=== PATIENT | male | born 1955 | race African-American/Black ===

== ENCOUNTER → 2016-09-03 | Outpatient (CLI) | payer OTHER, MEDICAID ==
[2016-06-03 11:06] VITALS: BP 111/73
[~2016-09-03] MED LIST: ACET-704 PO; ALBU6.7H IH; ASPI81TA2 PO; BUDE10.2 IH; BUPR300T4 PO; CARV25TA2 PO; COLE625T2 PO; DIPH25CA58 PO; DOCU-27 PO; ESOM40CA PO; EZET10TA3 PO; GABA600T PO; GLIP5TAB10 PO; GUAI1CAP PO; HYDR25TA9 PO; HYDROCODONE/APAP; LOSA100T6 PO; MELO-150 PO; METF500T9 PO; NIAC1TBM5 PO; NIAC500C6 PO; NITR0.4T6 SL; OMEG300C PO; PRED5TAB PO; PRED5TAB19 PO; RISP0.5T18 PO; ROFL500T PO; SPIR25TA PO; SUCR1ORA PO; [UNRECOGNIZED DRUG - OTHER]
--- NOTE | 2016-09-03 11:27 | RAD ---
Video dysphasia study, 09/03/2016: History: Swallowing difficulty The swallowing mechanism was examined fluoroscopically in the lateral projection while the patient ingested a variety of food materials mixed with barium. 2.6 minutes of fluoroscopy time was utilized. One fluoroscopic video loop was recorded by a member of the speech Department. The patient demonstrated good oral control of the barium materials. When ingesting the thin liquids there was minimal coating of the posterior aspect of the epiglottis. No significant laryngeal penetration or aspiration was observed. The majority of the barium bolus passed normally through the cervical esophagus. There are mild posterior impressions upon the cervical esophagus due to cervical spurs. He utilized a straw without difficulty. When ingesting the thicker materials and barium coated solids the patient demonstrated intermittent piecemeal swallowing. There was no significant laryngeal penetration or aspiration. There is very little vallecular or piriform sinus residue. IMPRESSION: No evidence of aspiration. Esophagram, 09/03/2016: The study was performed utilizing thin liquid barium. 2.3 minutes of fluoroscopy time was utilized. 7 static and dynamic fluoroscopic sequences were recorded. The swallowing mechanism is intact. The esophageal peristalsis is normal. There is no obstruction to flow of the barium through the cervical or thoracic esophagus. There are mild posterior impressions upon the lower cervical esophagus due to cervical spurs. A small sliding-type hiatal hernia was noted with a nonstenotic Schatzki's ring. No gastroesophageal reflux was demonstrated. IMPRESSION: 1. Small sliding-type hiatal hernia with a nonstenotic Schatzki's ring. 2. The esophagram is otherwise unremarkable.
== END | disposition home or self-care (01) ==
LOC: DXRAD 09:42
PROVIDERS: ATTEND Physician Assistant Medical
DX: K22.2 Esophageal obstruction (principal); K44.9 Diaphragmatic hernia without obstruction or gangrene; R10.13 Epigastric pain; R13.10 Dysphagia, unspecified
CPT/HCPCS: 74220; 74230; 92611

== ENCOUNTER 2016-11-11 20:50 | Emergency (ER) | payer OTHER, MEDICAID ==
[~2016-11-11] VITALS: Ht 180.3 cm; Wt 106.2 kg
[2016-11-11 20:50] VITALS: BP 148/85
[~2016-11-11 20:50] MED LIST changes: +ASPI-630 PO; -ASPI81TA2 PO; +COLE625T12 PO; -COLE625T2 PO; +DOCU-109 PO; -DOCU-27 PO; +EZET10TA18 PO; -EZET10TA3 PO; -MELO-150 PO; +MELO15TA23 PO; +NITR0.4T22 SL; -NITR0.4T6 SL; -RISP0.5T18 PO; +RISP0.5T24 PO; -ROFL500T PO; +ROFL500T7 PO; -SUCR1ORA PO; +SUCR1ORA11 PO
[2016-11-11] MEDS ORDERED: LIDOCAINE 2%/EPI 1:100,000 20 ML VIAL. ONE ×2 (21:08→21:10)
[2016-11-11] MEDS ORDERED: LIDOCAINE 2%/EPI 1:100,000 20 ML VIAL. IJ ONE (21:15)
[2016-11-11] MEDS ORDERED: SULF1TAB24 PO (21:26)
[2016-11-11] MEDS ORDERED: HYDR-2758 PO (21:26)
--- NOTE | 2016-11-11 21:27 | PHYS DOC ---
Past History Past Medical History: COPD, Diabetes, High Cholesterol, Heart Disease, Hypertension, Schizophrenia, Other Past Surgical History: No Surgical History Additional Past Surgical Histo: had extensive local I&D of abscesses underneath his arms Alcohol Use: None Drug Use: None Adult General Chief Complaint Chief Complaint: local soft tissue swelling HPI HPI Patient is a pleasant 61-year-old male with multiple medical problems who presents with soft tissue swelling underneath the left axilla. Spontaneous eruption of small ever growing lesion noted 2 days ago underneath his left armpit. It is very reminiscent of his prior hidradenitis and prior abscesses I& D before. He denies any fevers, chills, pain with arm movement. He has pain only with direct pressure over the lesion itself. He denies any localized trauma , denies any chest pain, shortness of breath or other systemic symptoms. Denies any rash joint pain or swelling. Review of Systems Review of Systems Constitutional: Denies fever or chills [] Eyes: Denies change in visual acuity, redness, or eye pain [] HENT: Denies nasal congestion or sore throat [] Respiratory: Denies cough or shortness of breath [] Cardiovascular: No additional information not addressed in HPI [] GI: Denies abdominal pain, nausea, vomiting, bloody stools or diarrhea [] : Denies dysuria or hematuria [] Musculoskeletal: Denies back pain or joint pain [] Integument: Denies rash or skin lesions [] Neurologic: Denies headache, focal weakness or sensory changes [] Endocrine: Denies polyuria or polydipsia [] Allergies Allergies Allergies Coded Allergies Type Severity Reaction Last Updated Verified amoxicillin Allergy Severe Rash 06/01/16 Yes ampicillin Allergy Severe Rash 06/01/16 Yes Penicillins Allergy Intermediate Rash 06/01/16 Yes clindamycin Allergy Intermediate 06/01/16 Yes Physical Exam Physical Exam Constitutional: Well developed, well nourished, no acute distress, non-toxic appearance. [] Cardiovascular:Heart rate regular rhythm, no murmur [] Lungs & Thorax: Bilateral breath sounds clear to auscultation [] Skin: Warm, dry, he has a 2 cm x 3 cm area of erythema induration and soft tissue swelling in the left axilla no vesicles is no rash overlying the lesion itself. No lymphadenitis capillary refill is brisk +2 peripheral pulses are intact. There is no pulsatile mass here in the axilla Extremities: No tenderness, no cyanosis, no clubbing, ROM intact, no edema. [] Neurologic: Alert and oriented X 3, normal motor function, normal sensory function, no focal deficits noted. [] Psychologic: Affect normal, judgement normal, mood normal. [] EKG EKG [] Radiology/Procedures Radiology/Procedures [] Course & Med Decision Making Course & Med Decision Making Pertinent Labs and Imaging studies reviewed. (See chart for details) a brief bedside ultrasound using a P 21 was completed them sending small area of fluid collected about once every underneath this tissue. Corresponding with a soft tissue swelling noted at the surface of the skin. Abscess measured 1 x 1 cm in length and width. After I&D wound was packed with iodoform gauze patient was placed on appropriate pain medication and antibiotics and wound care follow-up in the next 24-48 hours. Precautions given asked to follow up his primary care doctor for any questions or concerns referral to general surgery for continued management of his hidradenitis Disposition discharge home PCP follow-up Gen. surgery referral. [] Dragon Disclaimer Dragon Disclaimer This chart was dictated in whole or in part using Voice Recognition software in a busy, high-work load, and often noisy Emergency Department environment. It may contain unintended and wholly unrecognized errors or omissions. Departure Departure: Impression: Primary Impression: Abscess Disposition: 01 HOME, SELF-CARE Condition: IMPROVED Referrals: TERRY CULLEN (PCP) Patient Instructions: Abscess, Abscess, Care After, Abscess, [id number] Additional Instructions: These follow-up with your primary care doctor in 24-48 hours for wound care check and removal of packing was necessary. Please return here for any increasing pain, localized swelling fever greater 102.2 despite treatment or if you have any questions or concerns. Scripts Hydrocodone Bit/Acetaminophen (HYDROCODONE-APAP 5-325 ) 1 Each Tablet 1 TAB PO PRN Q6HRS Y for PAIN for 10 Days, TAB 0 Refills Prov: CONOR CONTRERAS MD 11/11/16 Sulfamethoxazole/Trimethoprim (BACTRIM DS TABLET) 1 Each Tablet 1 TAB PO BID, #20 TAB Prov: CONOR CONTRERAS MD 11/11/16 Incision and Drainage Indication: [INDICATION:] Fluctuant abscess procedure was given verbal consent. To complete Procedure: The patient was positioned appropriately and the skin over the incision site was [cleaned with Betadine]. Local anesthesia was [lidocaine with 2% epi 4 mL:]. An incision was then made over the left axillary abscess and [5- 6 mL of urine and drainage:] material was expressed. Loculations were [broken up with hemostats:]. The drainage cavity was then [packed with quarter-inch from gauze approximate 6 cm.:]. The patients tetanus status ready updated..:]. The patient tolerated the procedure without issue was given instructions for follow-up and wound management Complications: No complications COONR CONTRERAS MD Nov 11, 2016 21:27
== END 2016-11-11 21:35 | disposition home or self-care (01) ==
LOC: ER 20:50
DX: L02.412 Cutaneous abscess of left axilla (principal); E11.9 Type 2 diabetes mellitus without complications; E78.00 Pure hypercholesterolemia, unspecified; F20.9 Schizophrenia, unspecified; J44.9 Chronic obstructive pulmonary disease, unspecified; I11.9 Hypertensive heart disease without heart failure; Z88.0 Allergy status to penicillin; Z88.1 Allergy status to other antibiotic agents
CPT/HCPCS: 99284-25

== ENCOUNTER → 2016-12-30 | Outpatient (CLI) | payer OTHER, MEDICAID ==
[~2016-12-30] MED LIST changes: +HYDR-2758 PO; +SULF1TAB24 PO
--- NOTE | 2016-12-30 09:41 | RAD ---
CHEST PA LATERAL Clinical Indication: COPD, COUGHING UP BLOOD FOR 5 MTHS Comparison: Chest radiograph dated 06/01/2016, esophagram [employer] radiograph dated 09/03/2016 Findings: Normal lung volume. New 1.3 cm rounded nodule in the right upper lung zone. Right mid lung zone linear opacity likely related to atelectasis versus scarring. Stable pulmonary vasculature. Right hilar calcified granuloma. No pleural effusion or pneumothorax. The cardiac mediastinal silhouette and great vessels are normal. No acute osseous abnormality. IMPRESSION: New 1.3 cm rounded nodule in the right upper lung zone. Recommend CT chest for further evaluation. Critical findings: These findings were discussed with MONCHO Galeas at 9:35 AM on 01/01/2017.
== END | disposition home or self-care (01) ==
LOC: DXRADRC 07:29
PROVIDERS: ATTEND Physician Assistant Medical
DX: J44.9 Chronic obstructive pulmonary disease, unspecified (principal); R91.1 Solitary pulmonary nodule
CPT/HCPCS: 71020

== ENCOUNTER → 2017-02-05 | Outpatient (CLI) | payer OTHER, MEDICAID ==
--- NOTE | 2017-02-05 14:51 | RAD ---
CT scan of the chest without contrast 02/05/2017 Clinical history: Hemoptysis for several years. Technique: Unenhanced, contiguous, 3 mm axial sections were obtained through the chest and upper abdomen. One or more of the following individualized dose reduction techniques were utilized for this study: 1. Automated exposure control. 2. Adjustment of the mA and/or kV according to patient size. 3. Use of iterative reconstruction technique. Findings: Comparison study is dated 10/15/2015. A noncalcified slightly irregular mass is seen involving the right upper lobe which measures 1.8 x 1.4 x 1.1 cm in AP, transverse and craniocaudal dimensions. This is new since the previous examination. It is concerning for bronchogenic carcinoma. A 8 mm calcified granuloma seen involving the right lower lobe. Emphysematous changes are seen involving the left upper lobe and left lower lobe. No area of consolidation is seen. No additional pulmonary mass is noted. No pneumothorax or pleural effusion is seen. The heart is normal in size. The thoracic aorta tapers normally. Calcified right hilar and mediastinal lymph nodes are seen which measure 3 mm to 1.5 cm in size. Slightly prominent mediastinal lymph nodes are seen which measure 5 mm to 1.5 cm in size. These have not significantly changed. Images through the upper abdomen demonstrate decreased attenuation of the liver parenchyma consistent with mild fatty infiltration. Degenerative changes are seen throughout the thoracic spine. Impression: 1.8 cm noncalcified mass is seen involving the right upper lobe which is new since the previous examination. This is concerning for bronchogenic carcinoma.
== END | disposition home or self-care (01) ==
LOC: CT 11:06
PROVIDERS: ATTEND Physician Assistant Medical
DX: J84.10 Pulmonary fibrosis, unspecified (principal); R04.2 Hemoptysis; R91.8 Other nonspecific abnormal finding of lung field; J43.9 Emphysema, unspecified; Z87.891 Personal history of nicotine dependence; M47.894 Other spondylosis, thoracic region
CPT/HCPCS: 71250

== ENCOUNTER 2018-01-25 13:58 | Emergency (ER) | payer OTHER, MEDICAID ==
[~2018-01-25] VITALS: Ht 170.2 cm; Wt 107.5 kg
[2018-01-25] MEDS ORDERED: cefTRIAXone IV Push 1 GM VIAL. IVP ONE ×2 (14:30→14:45)
[2018-01-25] MEDS ORDERED: IV NORMAL SALINE 1,000ML 1,000 ML IV SCH (14:30)
[2018-01-25] MEDS ORDERED: INSULIN REGULAR 100 UNIT/ML 3ML VIAL. IV ONE (14:30)
[2018-01-25 14:46] LABS: BASO % 0 % (0-3); EOS % 1 % (0-3); HEMATOCRIT 40.9 % (39.0-53.0); HEMOGLOBIN 14.1 g/dL (13.0-17.5); LYMPH # 2.1 x10^3/uL (1.0-4.8); LYMPH % 38 % (24-48); MEAN CORPUSCULAR HEMOGLOBIN 33 pg (25-35); MEAN CORPUSCULAR HGB CONC 35 g/dL (31-37); MEAN CORPUSCULAR VOLUME 95 fL (79-100); MONO # 0.9 x10^3/uL (0.0-1.1); MONO % 16 % (0-9); NEUT # 2.5 x10^3uL (1.8-7.7); NEUT % 46 % (31-73); PLATELET COUNT 396 x10^3/uL (140-400); RED BLOOD COUNT 4.29 x10^6/uL (4.30-5.70); RED CELL DISTRIBUTION WIDTH 12.8 % (11.5-14.5); WHITE BLOOD COUNT 5.4 x10^3/uL (4.0-11.0)
[2018-01-25] MEDS ORDERED: CEPH-264 PO (14:53)
[2018-01-25] MEDS ORDERED: HYDR-971 PO (14:53)
--- NOTE | 2018-01-25 14:53 | PHYS DOC ---
Past History Past Medical History: Arthritis, Cancer, Diabetes, Hypertension, Other Past Surgical History: Other Additional Past Surgical Histo: had extensive local I&D of abscesses underneath his arms Smoking: Non-smoker Alcohol Use: None Drug Use: None Adult General Chief Complaint Chief Complaint: FACE PROBLEM HPI HPI Patient is a 62-year-old male patient with history of schizophrenia, diabetes, lung cancer on home oxygen brought in by his case management because of right lower jaw and dental pain and facial swelling since yesterday without fever and chills, nausea and vomiting, injury. Review of Systems Review of Systems Constitutional: Denies fever or chills [] Eyes: Denies change in visual acuity, redness, or eye pain [] HENT: Denies nasal congestion or sore throat [] Respiratory: Denies cough or shortness of breath [] Cardiovascular: No additional information not addressed in HPI [] GI: Denies abdominal pain, nausea, vomiting, bloody stools or diarrhea [] : Denies dysuria or hematuria [] Musculoskeletal: Denies back pain or joint pain [] Integument: Denies rash or skin lesions [] Neurologic: Denies headache, focal weakness or sensory changes [] Endocrine: Denies polyuria or polydipsia [] All other systems were reviewed and found to be within normal limits, except as documented in this note. Current Medications Current Medications Current Medications Medications (Trade) Dose Ordered Sig/Jamal Start Time Stop Time Status Last Admin Dose Admin Ceftriaxone Sodium 1 gm/ Sodium Chloride 50 ml @ 100 mls/hr 1X ONCE 01/25/18 14:45 01/25/18 14:45 DC Ceftriaxone Sodium (Rocephin) 1 gm 1X ONCE 01/25/18 14:45 01/25/18 14:46 DC 01/25/18 14:48 1 GM Insulin Human Regular (HumuLIN R VIAL) 10 unit 1X ONCE 01/25/18 14:30 01/25/18 14:31 DC 01/25/18 14:37 10 UNIT Sodium Chloride 1,000 ml @ 1,000 mls/hr Q1H 01/25/18 14:30 01/25/18 15:29 01/25/18 14:36 1,000 MLS/HR Allergies Allergies Allergies Coded Allergies Type Severity Reaction Last Updated Verified amoxicillin Allergy Severe Rash 01/25/18 Yes ampicillin Allergy Severe Rash 01/25/18 Yes Penicillins Allergy Intermediate Rash 01/25/18 Yes clindamycin Allergy Intermediate 01/25/18 Yes Physical Exam Physical Exam Constitutional: Well nourished, mild distress, non-toxic appearance. [] HENT: Normocephalic, atraumatic, bilateral external ears normal, extensive dental cavity, right facial edema and mild tenderness without sign of abscess, tooth #30 tenderness and abscess, oropharynx moist, no oral exudates, nose normal. [] Eyes: PERRLA, EOMI, conjunctiva normal, no discharge. [] Neck: Normal range of motion, no tenderness, supple, no stridor. [] Cardiovascular:Heart rate regular rhythm, no murmur [] Lungs & Thorax: Bilateral breath sounds clear to auscultation [] Abdomen: Bowel sounds normal, soft, no tenderness, no masses, no pulsatile masses. [] Skin: Warm, dry, no erythema, no rash. [] Back: No tenderness, no CVA tenderness. [] Extremities: No tenderness, no cyanosis, no clubbing, ROM intact, no edema. [] Neurologic: Alert and oriented X 3, normal motor function, normal sensory function, no focal deficits noted. [] Psychologic: Affect normal, judgement normal, mood normal. [] Current Patient Data Vital Signs Vital Signs Date Time Temp Pulse Resp B/P (MAP) Pulse Ox O2 Delivery O2 Flow Rate FiO2 01/25/18 14:13 98.3 112 24 94 Room Air Lab Results Laboratory Tests Test 01/25/18 14:17 01/25/18 14:28 Glucose (Fingerstick) 429 mg/dL (70-99) H White Blood Count 5.4 x10^3/uL (4.0-11.0) Red Blood Count 4.29 x10^6/uL (4.30-5.70) L Hemoglobin 14.1 g/dL (13.0-17.5) Hematocrit 40.9 % (39.0-53.0) Mean Corpuscular Volume 95 fL (79-100) Mean Corpuscular Hemoglobin 33 pg (25-35) Mean Corpuscular Hemoglobin Concent 35 g/dL (31-37) Red Cell Distribution Width 12.8 % (11.5-14.5) Platelet Count 396 x10^3/uL (140-400) Neutrophils (%) (Auto) 46 % (31-73) Lymphocytes (%) (Auto) 38 % (24-48) Monocytes (%) (Auto) 16 % (0-9) H Eosinophils (%) (Auto) 1 % (0-3) Basophils (%) (Auto) 0 % (0-3) Neutrophils # (Auto) 2.5 x10^3uL (1.8-7.7) Lymphocytes # (Auto) 2.1 x10^3/uL (1.0-4.8) Monocytes # (Auto) 0.9 x10^3/uL (0.0-1.1) Eosinophils # (Auto) 0.0 x10^3/uL (0.0-0.7) Basophils # (Auto) 0.0 x10^3/uL (0.0-0.2) Platelet Estimate Pending EKG EKG [] Radiology/Procedures Radiology/Procedures [] Course & Med Decision Making Course & Med Decision Making Pertinent Labs reviewed. (See chart for details) discharge: I've spoken with the patient and/or caregivers. I've explained the patient's condition, diagnosis and treatment plan based on information available to me at this time. I've answered the patient's and/or caregivers questions and addressed any concerns. The patient and/or caregivers have a good understanding the patient's diagnosis, condition and treatment plan as can be expected at this point. Vital signs have been stabilized. The patient's condition is stable for discharge from the emergency department. The patient will pursue further outpatient evaluation with her primary care provider or other designated consulting physician as outlined in the discharge instructions. Patient and/or caregivers are agreeable to this plan of care and follow-up instructions have been explained in detail. The patient and/or caregivers have received these instructions in written format and expressed understanding of these discharge instructions. The patient and her caregivers are aware that if any significant change in condition or worsening of symptoms should prompt him to immediately return to this of the closest emergency department. If an emergent department is not readily available I would encourage him to call 911. [] Dragon Disclaimer Dragon Disclaimer This electronic medical record was generated, in whole or in part, using a voice recognition dictation system. Departure Departure: Impression: Primary Impression: Dental abscess Additional Impressions: Facial cellulitis Hyperglycemia Uncontrolled diabetes mellitus Renal insufficiency Disposition: HOME, SELF-CARE (at 1542) Condition: IMPROVED Referrals: TERRY CULLEN (PCP) Patient Instructions: 1800 Calorie Diet for Diabetes Meal Planning, Cellulitis , Dental Abscess, Hyperglycemia Additional Instructions: Follow-up with your dentist as scheduled tomorrow Return to ER if not getting better Scripts Hydrocodone Bit/Acetaminophen (NORCO 5-325 TABLET) 1 Each Tablet 1 TAB PO PRN Q6HRS PRN for PAIN, #14 TAB 0 Refills Prov: HIMANSHU DOZIER MD 01/25/18 Cephalexin (KEFLEX) 500 Mg Capsule 1000 MG PO BID, #28 CAP Prov: HIMANSHU DOZIER MD 01/25/18 Problem Qualifiers HIMANSHU DOZIER MD Jan 25, 2018 14:53
[2018-01-25 15:03] LABS: ALBUMIN 2.8 g/dL (3.4-5.0); ALBUMIN/GLOBULIN RATIO 0.7 (1.0-1.7); CREATININE 1.4 mg/dL (0.7-1.3); GFR 62.3; POTASSIUM 4.4 mmol/L (3.5-5.1); TOTAL BILIRUBIN 0.3 mg/dL (0.2-1.0); TOTAL PROTEIN 6.9 g/dL (6.4-8.2)
[2018-01-25 15:38] LABS: % BANDS 3 % (0-9); % LYMPHS 42 % (24-48); % METAS 1 % (0-0); % MONOS 13 % (0-10); % SEGS 41 % (35-66); PLATELET CLUMP PRESENT; PLT ESTIMATE INCREASED (ADEQUATE); POLYCHROMASIA SLIGHT; TOXIC GRANULATION SLIGHT
[2018-01-25 15:44] VITALS: BP 114/73
== END 2018-01-25 15:50 | disposition home or self-care (01) ==
LOC: ER 13:58
DX: K04.7 Periapical abscess without sinus (principal); L03.211 Cellulitis of face; E11.65 Type 2 diabetes mellitus with hyperglycemia; N28.9 Disorder of kidney and ureter, unspecified; I10 Essential (primary) hypertension; M19.90 Unspecified osteoarthritis, unspecified site; F20.9 Schizophrenia, unspecified; Z99.81 Dependence on supplemental oxygen; Z88.1 Allergy status to other antibiotic agents; Z88.0 Allergy status to penicillin
CPT/HCPCS: 36415; 80053; 82947; 83605; 85007; 85025; 87040; 96361; 96374; 96375; 99284; J0696; J1815; J7030

== ENCOUNTER 2018-02-17 18:18 | Emergency (ER) | payer OTHER, MEDICAID ==
[~2018-02-17] VITALS: Ht 170.2 cm; Wt 104.3 kg
[~2018-02-17 18:18] MED LIST changes: +CEPH-264 PO; +HYDR-971 PO; -LOSA100T6 PO; +LOSA100T7 PO
[2018-02-17] MEDS ORDERED: IV NORMAL SALINE 1,000ML 1,000 ML IV ONE (19:30)
--- NOTE | 2018-02-17 19:36 | PHYS DOC ---
Past History Past Medical History: Arthritis, Cancer, Diabetes, Hypertension, Other Past Surgical History: Other Additional Past Surgical Histo: had extensive local I&D of abscesses underneath his arms Smoking: Non-smoker Alcohol Use: None Drug Use: None Adult General Chief Complaint Chief Complaint: RECTAL BLEED HPI HPI 62-year-old male presents with rectal bleeding. Patient states that he had bright red blood per rectum about 90 minutes prior to arrival. The patient has had loose diarrhea the last 2 days. He took 2 Imodium today to slow down the diarrhea and afterwards he had a bright red bloody stool. He denies any fecal matter mixed in with the stool; it was just blood. The patient has had rectal bleeding in the past 4 years ago but this was after an episode of constipation and laxative use. He was hospitalized at that time. Patient admits to having some lightheadedness and dizziness since the bowel movement. He has not had a further bowel movement. He denies fever or chills. Review of Systems Review of Systems Constitutional: Denies fever or chills [] Eyes: Denies change in visual acuity, redness, or eye pain [] HENT: Denies nasal congestion or sore throat [] Respiratory: Denies cough or shortness of breath [] Cardiovascular: No additional information not addressed in HPI [] GI: Denies abdominal pain, nausea, vomiting, bloody stools or diarrhea [] : Denies dysuria or hematuria [] Musculoskeletal: Denies back pain or joint pain [] Integument: Denies rash or skin lesions [] Neurologic: Denies headache, focal weakness or sensory changes [] Endocrine: Denies polyuria or polydipsia [] All other systems were reviewed and found to be within normal limits, except as documented in this note. Current Medications Current Medications Current Medications Medications (Trade) Dose Ordered Sig/Jamal Start Time Stop Time Status Last Admin Dose Admin Sodium Chloride 1,000 ml @ 1,000 mls/hr 1X ONCE 02/17/18 19:30 02/17/18 20:29 Allergies Allergies Allergies Coded Allergies Type Severity Reaction Last Updated Verified amoxicillin Allergy Severe Rash 01/25/18 Yes ampicillin Allergy Severe Rash 01/25/18 Yes Penicillins Allergy Intermediate Rash 01/25/18 Yes clindamycin Allergy Intermediate 01/25/18 Yes Physical Exam Physical Exam Constitutional: Well developed, well nourished, no acute distress, non-toxic appearance. [] HENT: Normocephalic, atraumatic, bilateral external ears normal, oropharynx moist, no oral exudates, nose normal. [] Eyes: PERRLA, EOMI, conjunctiva normal, no discharge. [] Neck: Normal range of motion, no tenderness, supple, no stridor. [] Cardiovascular:Heart rate regular rhythm, no murmur [] Lungs & Thorax: Bilateral breath sounds clear to auscultation [] Abdomen: Bowel sounds normal, soft, no tenderness, no masses, no pulsatile masses. [] Skin: Warm, dry, no erythema, no rash. [] Back: No tenderness, no CVA tenderness. [] Extremities: No tenderness, no cyanosis, no clubbing, ROM intact, no edema. [] Neurologic: Alert and oriented X 3, normal motor function, normal sensory function, no focal deficits noted. [] Psychologic: Affect normal, judgement normal, mood normal. [] Current Patient Data Vital Signs Vital Signs Date Time Temp Pulse Resp B/P (MAP) Pulse Ox O2 Delivery O2 Flow Rate FiO2 02/17/18 18:35 98.4 105 18 96 Nasal Cannula 2.0 EKG EKG [] Radiology/Procedures Radiology/Procedures [] Course & Med Decision Making Course & Med Decision Making Pertinent Labs and Imaging studies reviewed. (See chart for details) Patient's labs are unremarkable except for an elevated blood sugar. This is a common finding for the patient. He is working with his PCP to improve his blood sugar and is recently started insulin. I have given him 1 L normal saline. He has been in the ER for over 2 hours for a total time of 3 and half hours since his blood per rectum. He has had no more bleeding. His Hemoccult was negative. At this time, it seems likely that the patient had a fissure or skin tear. He does not appear to be consistent with a GI bleed. He is stable for discharge at this time. If he has further significant bleeding, he'll return to the emergency room. He is stable for discharge at this time. [] Dragon Disclaimer Dragon Disclaimer This electronic medical record was generated, in whole or in part, using a voice recognition dictation system. Departure Departure: Referrals: TERRY CULLEN (PCP) FERNANDO CHAPARRO DO Feb 17, 2018 19:36
[2018-02-17 20:03] LABS: BASO # 0.1 x10^3/uL (0.0-0.2); BASO % 1 % (0-3); EOS # 0.2 x10^3/uL (0.0-0.7); EOS % 2 % (0-3); HEMATOCRIT 38.7 % (39.0-53.0); HEMOGLOBIN 13.2 g/dL (13.0-17.5); LYMPH # 1.8 x10^3/uL (1.0-4.8); LYMPH % 26 % (24-48); MEAN CORPUSCULAR HEMOGLOBIN 33 pg (25-35); MEAN CORPUSCULAR HGB CONC 34 g/dL (31-37); MEAN CORPUSCULAR VOLUME 96 fL (79-100); MONO # 0.5 x10^3/uL (0.0-1.1); MONO % 7 % (0-9); NEUT # 4.5 x10^3uL (1.8-7.7); NEUT % 64 % (31-73); PLATELET COUNT 247 x10^3/uL (140-400); RED BLOOD COUNT 4.04 x10^6/uL (4.30-5.70); RED CELL DISTRIBUTION WIDTH 13.7 % (11.5-14.5)
[2018-02-17 20:06] LABS: FECAL OB PT NEGATIVE (NEG)
[2018-02-17 20:16] LABS: ALBUMIN/GLOBULIN RATIO 0.8 (1.0-1.7); GFR 91.9; POTASSIUM 4.1 mmol/L (3.5-5.1); TOTAL BILIRUBIN 0.3 mg/dL (0.2-1.0); TOTAL PROTEIN 6.6 g/dL (6.4-8.2)
[2018-02-17 20:42] VITALS: BP 121/89
== END 2018-02-17 20:44 | disposition home or self-care (01) ==
LOC: ER 18:18
DX: E11.65 Type 2 diabetes mellitus with hyperglycemia (principal); K62.5 Hemorrhage of anus and rectum; R42 Dizziness and giddiness; R19.7 Diarrhea, unspecified; M19.90 Unspecified osteoarthritis, unspecified site; I10 Essential (primary) hypertension; Z88.1 Allergy status to other antibiotic agents; Z88.0 Allergy status to penicillin
CPT/HCPCS: 36415; 80053; 82274; 85025; 85610; 85730; 86850; 86900; 86901; 96360; 99284-25; J7030

== ENCOUNTER 2018-03-23 09:20 | Inpatient (IN) | payer OTHER, MEDICAID ==
[~2018-03-23] VITALS: Ht 170.2 cm; Wt 100.8 kg
[2018-03-23] MEDS ORDERED: IV NORMAL SALINE 1,000ML 1,000 ML IV SCH (09:25)
[2018-03-23 09:48] LABS: BASO % 1 % (0-3); EOS % 1 % (0-3); HEMATOCRIT 39.3 % (39.0-53.0); HEMOGLOBIN 13.4 g/dL (13.0-17.5); LYMPH # 1.6 x10^3/uL (1.0-4.8); LYMPH % 24 % (24-48); MEAN CORPUSCULAR HEMOGLOBIN 32 pg (25-35); MEAN CORPUSCULAR HGB CONC 34 g/dL (31-37); MEAN CORPUSCULAR VOLUME 95 fL (79-100); MONO % 1 % (0-9); NEUT # 5.1 x10^3uL (1.8-7.7); NEUT % 75 % (31-73); PLATELET COUNT 243 x10^3/uL (140-400); RED BLOOD COUNT 4.15 x10^6/uL (4.30-5.70); RED CELL DISTRIBUTION WIDTH 13.4 % (11.5-14.5); WHITE BLOOD COUNT 6.8 x10^3/uL (4.0-11.0)
[2018-03-23 09:55] LABS: BGAS PH 7.43 (7.35-7.46)
[2018-03-23] MEDS ORDERED: methylPREDNISolone SOD SUCC PF 125 MG/2 ML VIAL. IV ONE (10:00)
[2018-03-23] MEDS ORDERED: IPRATRPIUM/ALBUTEROL 0.5/2.5MG 3 ML NEBU. NEB ONE (10:00)
[2018-03-23 10:06] LABS: ALBUMIN 2.7 g/dL (3.4-5.0); ALBUMIN/GLOBULIN RATIO 0.8 (1.0-1.7); CALCIUM 8.2 mg/dL (8.5-10.1); CREATININE 1.8 mg/dL (0.7-1.3); GFR 46.6; MAGNESIUM 1.5 mg/dL (1.8-2.4); POTASSIUM 3.9 mmol/L (3.5-5.1); TOTAL BILIRUBIN 0.5 mg/dL (0.2-1.0); TOTAL PROTEIN 6.2 g/dL (6.4-8.2)
--- NOTE | 2018-03-23 10:23 | EKG ---
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
[2018-03-23] MEDS ORDERED: VANCOMYCIN 1 GM in IV NORMAL SALINE 250ML 250 ML IV ONE (10:30)
--- NOTE | 2018-03-23 10:38 | PHYS DOC ---
Past History Past Medical History: Arthritis, Cancer, Diabetes, High Cholesterol, Hypertension, Schizophrenia, Other Past Surgical History: Other Additional Past Surgical Histo: had extensive local I&D of abscesses underneath his arms Smoking: Non-smoker Alcohol Use: None Drug Use: None Adult General Chief Complaint Chief Complaint: DIZZY/LIGHT HEADED HPI HPI Patient is a 62 year old male who was in by EMS because of dizziness and shortness of breath. Patient has lung cancer and currently takes with rapid. Patient complaining of constant dizziness for the last 1 week that getting worse with change of position. Patient complaining of headache and tinnitus. Patient also complaining of increasing chronic shortness of breath that does not getting better with 2 L of home oxygen. Patient complaining of episodes of left chest pain as an aching pain that getting better with rest. She'll also complaining of productive cough with yellow sputum without fever and chills, vomiting, diarrhea, urinary symptoms, sick contact. Patient was seen at [facility] on March 19 and had blood pressure of 90s and heart rate of 102 according to his paperwork. Review of Systems Review of Systems Constitutional: Denies fever or chills [] Eyes: Denies change in visual acuity, redness, or eye pain [] HENT: Denies nasal congestion or sore throat [] Respiratory: Reports cough and shortness of breath Cardiovascular: No additional information not addressed in HPI [] GI: Denies abdominal pain, nausea, vomiting, bloody stools or diarrhea [] : Denies dysuria or hematuria [] Musculoskeletal: Denies back pain or joint pain [] Integument: Denies rash or skin lesions [] Neurologic: Denies headache, focal weakness or sensory changes [] Endocrine: Denies polyuria or polydipsia [] All other systems were reviewed and found to be within normal limits, except as documented in this note. Current Medications Current Medications Current Medications Medications (Trade) Dose Ordered Sig/Jamal Start Time Stop Time Status Last Admin Dose Admin Albuterol/ Ipratropium (Duoneb) 3 ml 1X ONCE 03/23/18 10:00 03/23/18 10:01 DC 03/23/18 09:47 3 ML Ceftriaxone Sodium 1 gm/ Sodium Chloride 50 ml @ 100 mls/hr 1X ONCE 03/23/18 11:00 03/23/18 11:29 Magnesium Oxide (Magnesium Oxide) 800 mg 1X ONCE 03/23/18 11:00 03/23/18 11:01 Methylprednisolone Sodium Succinate (SOLU-Medrol 125MG VIAL) 125 mg 1X ONCE 03/23/18 10:00 03/23/18 10:01 DC 03/23/18 09:48 125 MG Sodium Chloride 1,000 ml @ 1,000 mls/hr Q1H 03/23/18 09:25 03/23/18 10:24 DC 03/23/18 09:47 1,000 MLS/HR Vancomycin HCl 1 gm/Sodium Chloride 250 ml @ 250 mls/hr 1X ONCE 03/23/18 10:30 03/23/18 11:29 UNV Allergies Allergies Allergies Coded Allergies Type Severity Reaction Last Updated Verified amoxicillin Allergy Severe Rash 01/25/18 Yes ampicillin Allergy Severe Rash 01/25/18 Yes Penicillins Allergy Intermediate Rash 01/25/18 Yes clindamycin Allergy Intermediate 01/25/18 Yes azithromycin Allergy Unknown 03/23/18 Yes Physical Exam Physical Exam Constitutional: Well developed, well nourished, mild distress, non-toxic appearance. [] HENT: Normocephalic, atraumatic, oropharynx moist, no oral exudates, nose normal. [] Eyes: PERRLA, EOMI, conjunctiva normal, no discharge. [] Neck: Normal range of motion, no tenderness, supple, no stridor. [] Cardiovascular: Tachycardia Lungs & Thorax: Decrease of air movement, right basilar rhonchi[] Abdomen: Bowel sounds normal, soft, no tenderness, no masses, no pulsatile masses. [] Skin: Warm, dry, no erythema, no rash. [] Back: No tenderness, no CVA tenderness. [] Extremities: No tenderness, no cyanosis, no clubbing, ROM intact, no edema. [] Neurologic: Alert and oriented X 3, normal motor function, normal sensory function, no focal deficits noted. [] Psychologic: Affect normal, judgement normal, mood normal. [] Current Patient Data Vital Signs Vital Signs Date Time Temp Pulse Resp B/P (MAP) Pulse Ox O2 Delivery O2 Flow Rate FiO2 03/23/18 09:57 96 Nasal Cannula 2.0 03/23/18 09:20 97.4 108 16 Lab Results Laboratory Tests Test 03/23/18 09:25 03/23/18 09:32 Blood pH 7.43 (7.35-7.46) Blood Gas PCO2 37 mmHg (35-46) Blood Gas PO2 76 mmHg (80-100) L Blood Gas HCO3 25 mmol/L (21-28) Arterial Bld O2 Saturation (Calc) 96 % (92-99) FiO2 28 % White Blood Count 6.8 x10^3/uL (4.0-11.0) Red Blood Count 4.15 x10^6/uL (4.30-5.70) L Hemoglobin 13.4 g/dL (13.0-17.5) Hematocrit 39.3 % (39.0-53.0) Mean Corpuscular Volume 95 fL (79-100) Mean Corpuscular Hemoglobin 32 pg (25-35) Mean Corpuscular Hemoglobin Concent 34 g/dL (31-37) Red Cell Distribution Width 13.4 % (11.5-14.5) Platelet Count 243 x10^3/uL (140-400) Neutrophils (%) (Auto) 75 % (31-73) H Lymphocytes (%) (Auto) 24 % (24-48) Monocytes (%) (Auto) 1 % (0-9) Eosinophils (%) (Auto) 1 % (0-3) Basophils (%) (Auto) 1 % (0-3) Neutrophils # (Auto) 5.1 x10^3uL (1.8-7.7) Lymphocytes # (Auto) 1.6 x10^3/uL (1.0-4.8) Monocytes # (Auto) 0.0 x10^3/uL (0.0-1.1) Eosinophils # (Auto) 0.0 x10^3/uL (0.0-0.7) Basophils # (Auto) 0.0 x10^3/uL (0.0-0.2) Prothrombin Time 9.9 SEC (9.4-11.4) Prothrombin Time INR 1.0 (0.9-1.1) PTT 22 SEC (23-33) L D-Dimer (Amry) 1.50 mg/L (0.00-0.50) H Sodium Level 131 mmol/L (136-145) L Potassium Level 3.9 mmol/L (3.5-5.1) Chloride Level 95 mmol/L (98-107) L Carbon Dioxide Level 29 mmol/L (21-32) Anion Gap 7 (6-14) Blood Urea Nitrogen 39 mg/dL (8-26) H Creatinine 1.8 mg/dL (0.7-1.3) H Estimated GFR (Cockcroft-Gault) 46.6 BUN/Creatinine Ratio 22 (6-20) H Glucose Level 396 mg/dL (70-99) H Lactic Acid Level 2.6 mmol/L (0.4-2.0) H Calcium Level 8.2 mg/dL (8.5-10.1) L Magnesium Level 1.5 mg/dL (1.8-2.4) L Total Bilirubin 0.5 mg/dL (0.2-1.0) Aspartate Amino Transferase (AST) 9 U/L (15-37) L Alanine Aminotransferase (ALT) 27 U/L (16-63) Alkaline Phosphatase 85 U/L (46-116) Creatine Kinase 42 U/L (39-308) Troponin I Quantitative < 0.017 ng/mL (0-0.055) SY-Hbu-Z-Type Natriuretic Peptide 83 pg/mL (0-124) Total Protein 6.2 g/dL (6.4-8.2) L Albumin 2.7 g/dL (3.4-5.0) L Albumin/Globulin Ratio 0.8 (1.0-1.7) L EKG EKG EKG interpreted by me. EKG at 0 926 showed sinus tachycardia at rate of 105, rightward axis, right bundle branch block, poor R-wave progress in anteroseptal leads, no acute ST and T-wave abnormalities Radiology/Procedures Radiology/Procedures [address] [address] IMAGING REPORT Signed PATIENT: MARCELO ROA ACCOUNT: [id number] : 1955 LOCATION: ER AGE: 62 SEX: M EXAM STATUS: REG ER ORD. PHYSICIAN: HIMANSHU DOZIER MD REASON: shortness of breath and dizziness PROCEDURE: PORTABLE CHEST 1V EXAM: CHEST 1 VIEW History: Chest pain, dizziness COMPARISON: 12/30/2016 TECHNIQUE: Single portable radiograph of the chest FINDINGS: The cardiac silhouette is unremarkable. Mild right lung base airspace opacities likely atelectasis or infiltrate. Right-sided Port-A-Cath in place. IMPRESSION: 1. Mild right lung base airspace opacities likely atelectasis or infiltrates. Follow-up to resolution. 2. Right-sided Port-A-Cath in place. Electronically signed by: Joshua Tavares MD (03/23/2018 10:35 AM) [id number] DICTATED AND SIGNED BY: JOSHUA TAVARES MD DATE: 03/23/18 1024 CC: HIMANSHU DOZIER MD; [facility] [place] ~ [place] [address] IMAGING REPORT Signed PATIENT: MARCELO ROA ACCOUNT: [id number] : 1955 LOCATION: ER AGE: 62 SEX: M EXAM STATUS: REG ER ORD. PHYSICIAN: HIMANSHU DOZIER MD REASON: dizziness PROCEDURE: CT HEAD WO CONTRAST CT HEAD INDICATION: Dizziness for one week. Pt currently under chemotherapy for stage 1 Lung CA. movement during scanning COMPARISON: None Available. Exposure: One or more of the following individualized dose reduction techniques were utilized for this examination: 1. Automated exposure control 2. Adjustment of the mA and/or kV according to patient size 3. Use of iterative reconstruction technique TECHNIQUE: 5 mm contiguous axial images were obtained from the skull base to the vertex in both bone and soft tissue algorithm. FINDINGS: Mild bilateral periventricular white matter hypodensities likely chronic small vessel ischemic disease. No evidence of acute intracranial hemorrhage. No extra-axial fluid collections. No mass effect or midline shift. Ventricular size is appropriate. Basal cisterns are patent. No fractures identified.Bravo-white differentiation is preserved.Globes and orbits are within normal limits. Paranasal sinuses and mastoid air cells are clear. IMPRESSION: No acute intracranial findings. Electronically signed by: Joshua Tavares MD (03/23/2018 11:11 AM) [id number] DICTATED AND SIGNED BY: JOSHUA TAVARES MD DATE: 03/23/18 0021 CC: HIMANSHU DOZIER MD; [facility] ~ Course & Med Decision Making Course & Med Decision Making Pertinent Labs and Imaging studies reviewed. (See chart for details) Evaluation of patient in ER showed 62-year-old male patient with history of lung cancer and complaining of dizziness and increasing shortness of breath for one week. Patient had unremarkable physical exam and neuro exam. X-ray showed right lower lung infiltrate with elevation of lactic acid and tachycardia and hypotension. Patient was treated for sepsis with IV fluid and antibiotic and blood pressure increased to more than 100 and heart rate dropped to 90s. Patient had mild elevation of d-dimer and VQ scan is pending. Also blood sugar was high and patient treated with insulin. Dr Harris accepted admission at 1035. Dragon Disclaimer Dragon Disclaimer This electronic medical record was generated, in whole or in part, using a voice recognition dictation system. Departure Departure: Impression: Primary Impression: Sepsis Additional Impressions: HCAP (healthcare-associated pneumonia) Lung cancer Dizziness Hypomagnesemia Hyperglycemia Renal insufficiency COPD (chronic obstructive pulmonary disease) Uncontrolled diabetes mellitus Hypoalbuminemia Hyponatremia Dyspnea Elevated d-dimer Disposition: ADMITTED INPATIENT (at 1037) Admitting Physician: Lance Harris (accepted admission at 1036) Condition: GUARDED Referrals: [facility] C[facility] (PCP) Critical Care Time Critical care time was 90 minutes exclusive of procedures. Problem Qualifiers HIMANSHU DOZIER MD Mar 23, 2018 10:38
[2018-03-23] MEDS ORDERED: IV NORMAL SALINE 50ML 50 ML ONE (10:41)
[2018-03-23] MEDS ORDERED: cefTRIAXone SODIUM 1 GM VIAL IV ONE (10:41)
[2018-03-23] MEDS ORDERED: VANCOMYCIN 2 GM in IV NORMAL SALINE 500ML 500 ML IV ONE (11:00)
[2018-03-23] MEDS ORDERED: MAGNESIUM OXIDE 400 MG TABLET PO ONE (11:00)
--- NOTE | 2018-03-23 11:14 | RAD ---
CT HEAD INDICATION: Dizziness for one week. Pt currently under chemotherapy for stage 1 Lung CA. movement during scanning COMPARISON: None Available. Exposure: One or more of the following individualized dose reduction techniques were utilized for this examination: 1. Automated exposure control 2. Adjustment of the mA and/or kV according to patient size 3. Use of iterative reconstruction technique TECHNIQUE: 5 mm contiguous axial images were obtained from the skull base to the vertex in both bone and soft tissue algorithm. FINDINGS: Mild bilateral periventricular white matter hypodensities likely chronic small vessel ischemic disease. No evidence of acute intracranial hemorrhage. No extra-axial fluid collections. No mass effect or midline shift. Ventricular size is appropriate. Basal cisterns are patent. No fractures identified.Bravo-white differentiation is preserved.Globes and orbits are within normal limits. Paranasal sinuses and mastoid air cells are clear. IMPRESSION: No acute intracranial findings. Electronically signed by: Joshua Tavares MD (03/23/2018 11:11 AM) [id number]
[2018-03-23] MEDS ORDERED: INSULIN REGULAR 100 UNIT/ML 3ML VIAL. IV ONE (12:15)
[2018-03-23 13:18] VITALS: BP 96/70
[2018-03-23] MEDS ORDERED: DEXTROSE 50% 25 GM / 50ML DISP.SYRIN. IV PRN (14:00)
[2018-03-23] MEDS ORDERED: methylPREDNISolone SOD SUCC PF 40 MG/ML VIAL. IV SCH (14:00)
[2018-03-23] MEDS ORDERED: CARV12.5 PO (14:10)
[2018-03-23] MEDS ORDERED: IPRATRPIUM/ALBUTEROL 0.5/2.5MG 3 ML NEBU. NEB PRN (14:15)
[2018-03-23] MEDS ORDERED: INSU300I SQ (14:17)
[2018-03-23] MEDS ORDERED: ALBU8.5H8 INH (14:17)
[2018-03-23] MEDS ORDERED: SITA100T PO (14:17)
[2018-03-23] MEDS ORDERED: FLUT1DIS3 IH (14:17)
[2018-03-23] MEDS ORDERED: ONDA4TAB10 SL (14:17)
[2018-03-23] MEDS ORDERED: DEXA4TAB PO (14:17)
[2018-03-23] MEDS ORDERED: CARI350T PO (14:17)
[2018-03-23] MEDS ORDERED: TIOT18CA IH (14:17)
[2018-03-23] MEDS ORDERED: PANT40TA3 PO (14:17)
[2018-03-23] MEDS ORDERED: CRESTOR5 MG PO (14:18)
[2018-03-23] MEDS: IV NORMAL SALINE 1,000ML 1,000 ML IV SCH ×3 (14:31→22:03)
--- NOTE | 2018-03-23 15:09 | RAD ---
V/Q LUNG SCAN CLINICAL INDICATIONS: Shortness of breath. Hypoxia. Elevated d-dimer. History of lung cancer. COMPARISON: No previous lung scan available. Chest x-ray dated March 23, 2018. TECHNIQUE: After inhalation of 30.5 mCi of Xenon 133 gas, anterior and posterior planar images of the lung booker were performed in the single breath and equilibrium and washout phases. After IV infusion of 5.5 mCi of technetium 99m MAA, multiplanar images of both lung booker were performed. FINDINGS: No significant ventilatory defect or retention of radiotracer activity is seen. Normal physiologic perfusion is seen bilaterally. IMPRESSION: Normal V/Q lung scan. Electronically signed by: Rodrigo Bennett MD (03/23/2018 3:06 PM) [facility]
[2018-03-23] MEDS ORDERED: FLUC200T PO (15:23)
[2018-03-23] MEDS ORDERED: NITR0.4T22 SL (15:23)
[2018-03-23] MEDS ORDERED: LORA-254 PO (15:23)
[2018-03-23] MEDS ORDERED: PROC10TA57 PO (15:23)
[2018-03-23] MEDS ORDERED: FAMO-63 PO (15:23)
--- NOTE | 2018-03-23 15:41 | HP ---
ADMIT DATE: 03/23/2018 HISTORY OF PRESENT ILLNESS: The patient is a 62-year-old -[place] male patient, who came to the Emergency Room complaining of feeling dizzy, lightheaded, also had cough with yellowish sputum and shortness of breath; however, he denied any chest pain, denied any orthopnea or paroxysmal nocturnal dyspnea. Denied any chills, rigors or fever. He apparently has lung cancer for which he has been receiving chemotherapy. The last session was last Thursday, , Thursday, Thursday and apparently was diagnosed in October of this year and was started chemotherapy in December of this year at [facility]. He was extensively investigated in the Emergency Room, was found to have right lower lobe infiltrate and was admitted for IV antibiotic. He has had also CT scan of the head because of dizziness for almost [address] scan showed mild bilateral periventricular white matter hypodensities, likely chronic small vessel ischemic disease, no evidence of acute intracranial hemorrhage, no extraaxial fluid collection, no mass effect or midline shift, ventricular size is appropriate. Basal cisterns are patent. No fracture identified. The oquendo-white differentiation is preserved. Globes and orbits are within normal limits. The paranasal sinuses and mastoid air cells are clear. He was admitted and was started on vancomycin as well as ceftriaxone. Given that he has multiple allergies to PENICILLIN, AZITHROMYCIN and CLINDAMYCIN. PAST MEDICAL HISTORY: Significant for stage I lung cancer for which he is get diagnosed by a PET scan on November of this year and was started chemotherapy in December or January of this year, COPD, type 2 diabetes, hypertension, peripheral neuropathy, and benign prostatic hypertrophy. PAST SURGICAL HISTORY: Significant for laser surgery for venereal warts, tonsillectomy, testicular torsion, lymph node resection from the left armpit. He has also esophagogastroduodenoscopy and colonoscopy. ALLERGIES: He is allergic to PENICILLIN, AMOXICILLIN, AMPICILLIN, AZITHROMYCIN, CLINDAMYCIN. MEDICATIONS: We are contacting the [place] pharmacy to find out the exact list of his medications that he is on now. He apparently is currently on diphenhydramine 25 mg every 6 hours as needed for itching, albuterol sulfate for Proventil 1 puff every 4 hours as needed, nitroglycerin 0.4 mg sublingually with 3-5 minutes x 3, carvedilol 25 mg twice a day, aspirin 81 mg once a day, gabapentin 600 mg 3 times a day, Wellbutrin-XL 450 mg once a day, risperidone 8 mg at bedtime. He is on Symbicort 160/4.5 two puffs twice a day, Daliresp one tablet daily, sucralfate 1 gram 4 times a day before meals and at bedtime and Nexium 40 mg once a day, Soma with Codeine 1 tablet every 8 hours. FAMILY HISTORY: He has 2 brothers. His brother next to him is healthy. The younger brother has prostate cancer. One sister has lung cancer and the other has type 2 diabetes. His father at age of 62 because of lung cancer and his mother at age of 73 because of lung cancer. SOCIAL HISTORY: He is , has three biological children and 1 stepson. He quit smoking on 05/31/2016. He used to smoke 1 pack a day and smoked for almost 40 years. Does not drink alcohol or use any recreational drugs. He is currently on disability. He was in [employer], worked at [employer] and many other jobs. REVIEW OF SYSTEMS: The patient denied any blurring of vision, cataract, glaucoma or macular degeneration. Denied any earache, tinnitus or sensorineural deafness. Denied any nosebleeds, stuffy nose or postnasal drip. Denied any sore throat, sore tongue, toothache, hoarseness of voice or difficulty swallowing. Denied any nausea, vomiting, diarrhea or constipation. Denied any hematemesis, melena or hematochezia. Denied any dysuria, frequency or hematuria. He did complain of hesitancy and nocturia. Denied any chest pain. Did complain of shortness of breath, but denied any orthopnea or paroxysmal nocturnal dyspnea. He did complain of cough with yellowish sputum. Denied any chills, rigors or fever. He did complain of dizziness and lightheadedness, but denied any syncope, denied any vertigo. Did complain of pain in both hands and feet because of severe painful peripheral neuropathy. PHYSICAL EXAMINATION: GENERAL: On arrival to the Emergency Room, the patient looked well and was clearly in no apparent respiratory distress. There is no pallor, jaundice, cyanosis, or thyromegaly. No jugular venous distention. No limb edema. VITAL SIGNS: His heart rate was 108, blood pressure was low at 95/51, temperature was 97.4, respiratory rate was 16, and oxygen saturation was 96% on 2 liters of oxygen. HEAD, EYES, EARS, NOSE AND THROAT: Showed normocephalic, atraumatic. NECK: Supple. HEART: Showed normal first and second heart sounds with no gallop, rub, or murmur. CHEST: Clear to auscultation. No crepitation or rhonchi. ABDOMEN: Distended, soft, nontender. No guarding or rigidity. No organomegaly. All hernial orifice intact. Bowel sounds normal. NEUROLOGIC: He was awake, alert, responding appropriately. All cranial nerves intact. EXTREMITIES: He moves extremities without difficulty. He ambulates without assistance or assistive devices. LABORATORY DATA: Showed a white cell count of 6800, hemoglobin 13, hematocrit 39, MCV 95, and platelet count of 243,000. His prothrombin time was 9.9, INR of 1, aPTT was 22 and D-dimer was 1.5. His chemistry showed serum sodium 131, potassium was 3.9, chloride 95, bicarbonate 29, anion gap of 7, BUN 39, creatinine 1.8, estimated GFR was 46 mL per minute. His glucose was 396, lactic acid was 2.6. Total serum calcium was 8.2, magnesium was 1.5. Total bilirubin, AST, ALT, alkaline phosphatase were normal. His total protein was 6.2, albumin was 2.7. His prothrombin time was 9.9, INR of 1, aPTT was 22 and D-dimer was 1.5. He has had chest x-ray, which showed that the patient has mild right lung base airspace opacities, likely atelectasis or infiltrate followup to resolution. He has right-sided Port-A-Cath in place. The cardiac silhouette is unremarkable. Mild right lung base airspace opacities, likely atelectasis or infiltrate, right-sided Port-A-Cath in place. CT scan of the head showed that there has mild bilateral periventricular white matter hypodensities, likely chronic small vessel ischemic disease, no evidence of acute intracranial hemorrhage, no extraaxial fluid collection, no mass effect or mild midline shift, ventricular size is appropriate. Basal cisterns are patent. No fracture identified. The oquendo and white matter differentiation preserved. Globes and orbits are within normal limits. Paranasal sinuses and mastoid air cells are clear. ASSESSMENT AND PLAN: This is a 62-year-old -[place] male patient, who was admitted with complaint of dizziness, lightheadedness, cough with yellow sputum and was admitted with community-acquired pneumonia. He has lung cancer diagnosed with a PET scan in October of this year. He is currently on chemotherapy. The last chemotherapy was about on last Thursday, , Thursday and Thursday. He has multiple other medical problems including COPD, type 2 diabetes, hypertension, peripheral neuropathy, and benign prostatic hypertrophy. We will start him on insulin sliding scale and follow his lab work and decide further management accordingly. ADIEL JACKSON MD DR: MADELAINE/steven JOB#: [id number] / [id number]
[2018-03-23] MEDS ORDERED: LORazepam 1 MG TABLET PO PRN (15:45)
[2018-03-23] MEDS ORDERED: NITROGLYCERIN SUBLINGUAL 0.4 MG BOTTLE OF 25. SL PRN (15:45)
[2018-03-23] MEDS ORDERED: CARISOPRODOL 350 MG TABLET PO PRN (15:45)
[2018-03-23] MEDS ORDERED: NON FORMULARY ITEM (Tiotropium Bromide (Spiriva) 18 MCG) IH PRN (15:45)
[2018-03-23] MEDS ORDERED: ALBUTEROL SULFATE 8GM INHALER. INH PRN (15:45)
[2018-03-23] MEDS ORDERED: PROCHLORPERAZINE 5 MG TABLET. PO PRN (16:00)
[2018-03-23] MEDS ORDERED: ONDANSETRON ODT 4 MG TAB.RAPDIS PO PRN (16:15)
[2018-03-23] MEDS ORDERED: ALBUTEROL SULFATE 2.5 MG/3 ML NEBU. NEB PRN (16:15)
[2018-03-23] MEDS ORDERED: INSULIN LISPRO 300 UNITS/3 ML INSULN.PEN. SQ SCH (17:00)
[2018-03-23] MEDS: CARVEDILOL 12.5 MG TABLET PO SCH (17:16)
[2018-03-23] MEDS: INSULIN LISPRO 300 UNITS/3 ML INSULN.PEN. SQ SCH (17:17)
[2018-03-23 20:10] VITALS: BP 106/69
[2018-03-23] MEDS ORDERED: INSULIN GLARGINE 300 UNITS/3 ML INSULN.PEN. SQ SCH (21:00)
[2018-03-23] MEDS ORDERED: NON FORMULARY ITEM (Fluticasone/Salmeterol (Advair 250-50 Diskus) 1 PUFF) IH SCH (21:00)
[2018-03-23] MEDS: methylPREDNISolone SOD SUCC PF 40 MG/ML VIAL. IV SCH ×2 (21:00→21:19)
[2018-03-23] MEDS: BUDESONIDE 0.5 MG/2 ML NEBU NEB SCH (21:17)
[2018-03-23] MEDS: IPRATRPIUM/ALBUTEROL 0.5/2.5MG 3 ML NEBU. NEB SCH (21:17)
[2018-03-23] MEDS: LACTOBACILLUS RHAMNOSUS GG 1 CAPSULE. PO SCH (21:19)
[2018-03-23] MEDS: risperiDONE 2 MG TABLET. PO SCH (21:21)
[2018-03-23] MEDS: GABAPENTIN 300 MG CAPSULE. PO SCH (22:03)
[2018-03-23 23:09] VITALS: BP 125/79
[2018-03-24] MEDS: IV NORMAL SALINE 1,000ML 1,000 ML IV SCH (04:52)
[2018-03-24] MEDS: IPRATRPIUM/ALBUTEROL 0.5/2.5MG 3 ML NEBU. NEB SCH ×4 (05:25→21:32)
[2018-03-24] MEDS: GABAPENTIN 300 MG CAPSULE. PO SCH ×3 (05:37→21:16)
[2018-03-24 06:07] VITALS: BP 125/78
[2018-03-24 06:10] LABS: HEMATOCRIT 38.3 % (39.0-53.0); HEMOGLOBIN 12.8 g/dL (13.0-17.5); RED BLOOD COUNT 3.93 x10^6/uL (4.30-5.70); RED CELL DISTRIBUTION WIDTH 13.6 % (11.5-14.5)
[2018-03-24 06:23] LABS: ALBUMIN 2.5 g/dL (3.4-5.0); ALBUMIN/GLOBULIN RATIO 0.7 (1.0-1.7); CALCIUM 8.7 mg/dL (8.5-10.1); CREATININE 1.8 mg/dL (0.7-1.3); GFR 46.6; TOTAL BILIRUBIN 0.4 mg/dL (0.2-1.0); TOTAL PROTEIN 6.1 g/dL (6.4-8.2)
[2018-03-24] MEDS: VANCOMYCIN PER PHARMACY MC PRN (08:22)
[2018-03-24] MEDS: ASPIRIN 81 MG TAB.CHEW PO SCH (08:27)
[2018-03-24] MEDS: ATORVASTATIN CALCIUM 20 MG TABLET PO SCH (08:27)
[2018-03-24] MEDS: methylPREDNISolone SOD SUCC PF 40 MG/ML VIAL. IV SCH ×2 (08:27→21:15)
[2018-03-24] MEDS: CARVEDILOL 12.5 MG TABLET PO SCH ×2 (08:27→17:08)
[2018-03-24] MEDS: LACTOBACILLUS RHAMNOSUS GG 1 CAPSULE. PO SCH ×2 (08:27→21:16)
[2018-03-24] MEDS: LINAGLIPTIN 5 MG TABLET PO SCH (08:28)
[2018-03-24] MEDS: INSULIN LISPRO 300 UNITS/3 ML INSULN.PEN. SQ SCH ×3 (08:32→17:11)
[2018-03-24 10:33] VITALS: BP 96/62
[2018-03-24] MEDS: PANTOPRAZOLE 40 MG TABLET. PO SCH (11:08)
[2018-03-24] MEDS: VANCOMYCIN 1.5 GM in IV NORMAL SALINE 500ML 500 ML IV SCH (11:10)
[2018-03-24] MEDS: BUDESONIDE 0.5 MG/2 ML NEBU NEB SCH ×2 (11:32→21:31)
[2018-03-24 13:59] VITALS: BP 117/77
[2018-03-24 14:00] VITALS: BP_SYST 92; BP_SYST 99; BP_DIAS 60; BP_DIAS 67
[2018-03-24] MEDS ORDERED: IV NORMAL SALINE 1,000ML 1,000 ML IV ONE (14:15)
[2018-03-24] MEDS: HEPARIN PF for SUB-Q USE 5,000 UNIT/0.5 ML VIAL. SQ SCH ×2 (17:11→21:25)
[2018-03-24 18:48] VITALS: BP 127/81
[2018-03-24] MEDS ORDERED: INSULIN GLARGINE 300 UNITS/3 ML INSULN.PEN. SQ SCH (21:00)
[2018-03-24] MEDS: risperiDONE 2 MG TABLET. PO SCH (21:15)
[2018-03-24] MEDS: INSULIN GLARGINE 300 UNITS/3 ML INSULN.PEN. SQ SCH (21:26)
[2018-03-24 23:10] VITALS: BP 157/84
--- NOTE | 2018-03-25 03:58 | PN ---
DATE: 03/24/2018 SUBJECTIVE: The patient is resting slightly propped up in bed, in no apparent respiratory distress. He was continued to complain of feeling dizzy, weak. He feels hot and his feet are cold. However, there is no documented fever. PHYSICAL EXAMINATION: GENERAL: When I examined him this afternoon, he looked pale, no jaundice, cyanosis, or thyromegaly. No jugular venous distension. No limb edema. VITAL SIGNS: His heart rate was 96, blood pressure was 96/62, temperature was 98.5, respiratory rate 20, and oxygen saturation was 96% on 2 liters of oxygen. HEAD, EYES, EARS, NOSE AND THROAT: Normocephalic, atraumatic. NECK: Supple. HEART: Showed normal first and second heart sounds with no gallop, rub or murmur. CHEST: Clear to auscultation. No crepitation or rhonchi. ABDOMEN: Distended, soft. NEUROLOGIC: He is awake, alert, responding appropriately. Cranial nerves intact. He moves extremities without difficulty. His intake and output are incompletely recorded. LABORATORY DATA: This morning showed the serum sodium 135, potassium 5, chloride 100, bicarbonate 28, anion gap of 7, BUN 40, creatinine 1.8. His estimated GFR was 47 mL per minute. His glucose still high at 304, calcium was 8.7. Total bilirubin, AST, ALT, alkaline phosphatase were normal. Total protein was 6.1, albumin 2.5. His white cell count was 10,000, hemoglobin 12.8, hematocrit 38, MCV 98 and platelet count of 218,000. His prothrombin time was 9.9, INR 1, aPTT was 22 and D-dimer was 1.5. His blood gas was within acceptable range. DIAGNOSTIC DATA: Apparently, he has had lung ventilation perfusion scan, which basically showed that the patient has no significant ventilatory defect. Radiotracer activity is seen. Normal physiologic perfusion is seen bilaterally. IMPRESSION: The patient has normal V/Q lung scan. PLAN: To continue with the IV antibiotic in the form of vancomycin as well as Levaquin. Continue with steroids. Continue with inhalers. Continue with all other medication. Given the fact he continues to be complaining of dizziness, will check his orthostatic hypotension and if he continues to have postural hypotension, will hold his carvedilol for now and start IV fluids. ADIEL JACKSON MD DR: Kenia JOB#: [id number] / [id number]
[2018-03-25 04:03] VITALS: BP 132/81
[2018-03-25] MEDS: IPRATRPIUM/ALBUTEROL 0.5/2.5MG 3 ML NEBU. NEB SCH ×4 (05:30→20:54)
[2018-03-25] MEDS: GABAPENTIN 300 MG CAPSULE. PO SCH ×3 (05:59→21:46)
[2018-03-25] MEDS: HEPARIN PF for SUB-Q USE 5,000 UNIT/0.5 ML VIAL. SQ SCH ×3 (06:00→21:53)
[2018-03-25 06:36] LABS: HEMATOCRIT 35.1 % (39.0-53.0); HEMOGLOBIN 12.1 g/dL (13.0-17.5); RED BLOOD COUNT 3.69 x10^6/uL (4.30-5.70); RED CELL DISTRIBUTION WIDTH 13.1 % (11.5-14.5)
[2018-03-25 06:43] LABS: CALCIUM 8.5 mg/dL (8.5-10.1); CREATININE 1.7 mg/dL (0.7-1.3); GFR 49.8; POTASSIUM 4.5 mmol/L (3.5-5.1)
[2018-03-25] MEDS: methylPREDNISolone SOD SUCC PF 40 MG/ML VIAL. IV SCH (07:57)
[2018-03-25] MEDS: PANTOPRAZOLE 40 MG TABLET. PO SCH (07:57)
[2018-03-25] MEDS: ASPIRIN 81 MG TAB.CHEW PO SCH (07:57)
[2018-03-25] MEDS: LINAGLIPTIN 5 MG TABLET PO SCH (07:57)
[2018-03-25] MEDS: LACTOBACILLUS RHAMNOSUS GG 1 CAPSULE. PO SCH ×2 (07:57→21:46)
[2018-03-25] MEDS: CARVEDILOL 12.5 MG TABLET PO SCH (07:58)
[2018-03-25] MEDS: INSULIN LISPRO 300 UNITS/3 ML INSULN.PEN. SQ SCH ×3 (08:07→17:10)
[2018-03-25] MEDS: BUDESONIDE 0.5 MG/2 ML NEBU NEB SCH ×2 (10:03→20:54)
[2018-03-25 11:14] VITALS: BP 94/62
[2018-03-25 11:24] LABS: VANC TR 8.3 mcg/mL (10.0-20.0)
[2018-03-25] MEDS: VANCOMYCIN 1.5 GM in IV NORMAL SALINE 500ML 500 ML IV SCH (12:00)
[2018-03-25] MEDS: VANCOMYCIN PER PHARMACY MC PRN (12:26)
[2018-03-25 15:29] VITALS: BP 135/86
[2018-03-25] MEDS: CARVEDILOL 6.25 MG TABLET PO SCH (17:00)
[2018-03-25 19:45] VITALS: BP 105/69
[2018-03-25] MEDS: risperiDONE 2 MG TABLET. PO SCH (21:46)
[2018-03-25] MEDS: INSULIN GLARGINE 300 UNITS/3 ML INSULN.PEN. SQ SCH (21:52)
[2018-03-25 22:50] VITALS: BP 112/71
[2018-03-26] MEDS ORDERED: VANCOMYCIN 1.5 GM in IV NORMAL SALINE 500ML 500 ML IV SCH ×2
[2018-03-26] MEDS: IPRATRPIUM/ALBUTEROL 0.5/2.5MG 3 ML NEBU. NEB SCH ×4 (05:32→20:41)
[2018-03-26] MEDS: HEPARIN PF for SUB-Q USE 5,000 UNIT/0.5 ML VIAL. SQ SCH ×3 (05:37→21:23)
[2018-03-26] MEDS: GABAPENTIN 300 MG CAPSULE. PO SCH ×3 (05:38→21:24)
[2018-03-26 06:00] VITALS: BP 96/65
[2018-03-26 06:45] LABS: VANC TR 12.3 mcg/mL (10.0-20.0)
[2018-03-26] MEDS: PANTOPRAZOLE 40 MG TABLET. PO SCH ×2 (07:10→07:30)
--- NOTE | 2018-03-26 07:14 | PN ---
DATE: 03/25/2018 SUBJECTIVE: The patient is resting, slightly propped up in bed, in no apparent distress. He apparently continues to complain of dizziness, although the difference between lying and standing systolic pressure is less than 20 mmHg. He is diabetic and definitely has diabetic peripheral neuropathy. He probably have also diabetic autonomic neuropathy. He is also on Coreg 12.5 mg twice a day and has been receiving chemotherapy that might aggravate the autonomic neuropathy. PHYSICAL EXAMINATION: GENERAL: When I examined him today, he looked well and was clearly in no apparent respiratory distress. No pallor, jaundice, cyanosis, or thyromegaly. No jugular venous distension. No limb edema. VITAL SIGNS: His heart rate was 92, blood pressure was 94/62, temperature was 97.3, respiratory rate was 20, and oxygen saturation was 93% on 2 liters of oxygen. HEAD, EYES, EARS, NOSE, AND THROAT: Showed normocephalic, atraumatic. NECK: Supple. HEART: Showed normal first and second sounds. No gallop, rub, or murmur. CHEST: Clear to auscultation. No crepitation or rhonchi. ABDOMEN: Distended, soft, nontender. No guarding or rigidity. No organomegaly. All hernial orifice intact. Bowel sounds normal. NEUROLOGIC: He is awake, alert, responding appropriately. All cranial nerves intact. He moves extremities without difficulty. His intake over the last 24 hours was 1995, output was 1800. LABORATORY DATA: As of this morning showed a serum sodium 133, potassium 4.5, chloride 96, bicarbonate 27, anion gap of 8, BUN 43, creatinine 1.7, estimated GFR was 49 mL per minute. His glucose was 307. Calcium was 8.5. His white cell count was 6000, hemoglobin 12, hematocrit 35, MCV 95, and platelet count of 180,000. His prothrombin time was 9.9, INR 1, aPTT was 22, and D-dimer was 1.5. His perfusion and ventilation imaging showed no evidence of mismatch and normal physiology effusion is seen bilaterally. IMPRESSION AND PLAN: My plan is to cut down on his Coreg to 6.25 mg twice a day and discontinue his IV steroids. We will evaluate him tomorrow again. I will also discontinue his vancomycin as his blood cultures were negative with no growth after 2 days. ADIEL JACKSON MD DR: Kenia JOB#: [id number] / [id number]
[2018-03-26] MEDS: CARVEDILOL 6.25 MG TABLET PO SCH ×2 (08:00→17:07)
[2018-03-26] MEDS: LACTOBACILLUS RHAMNOSUS GG 1 CAPSULE. PO SCH ×2 (08:26→20:27)
[2018-03-26] MEDS: LINAGLIPTIN 5 MG TABLET PO SCH (08:26)
[2018-03-26] MEDS: ASPIRIN 81 MG TAB.CHEW PO SCH (08:26)
[2018-03-26] MEDS: predniSONE 10 MG TABLET PO SCH (08:26)
[2018-03-26] MEDS: ATORVASTATIN CALCIUM 20 MG TABLET PO SCH (08:27)
[2018-03-26] MEDS: INSULIN LISPRO 300 UNITS/3 ML INSULN.PEN. SQ SCH ×3 (08:33→17:11)
[2018-03-26 09:54] VITALS: BP 93/57
[2018-03-26] MEDS: BUDESONIDE 0.5 MG/2 ML NEBU NEB SCH ×2 (10:23→20:41)
[2018-03-26] MEDS ORDERED: IV NORMAL SALINE 500ML 500 ML IV ONE (12:00)
[2018-03-26] MEDS: IV NORMAL SALINE 1,000ML 1,000 ML IV SCH ×2 (12:08→20:28)
[2018-03-26] MEDS: levoFLOXacin 500 MG TABLET PO SCH (13:59)
[2018-03-26 14:12] VITALS: BP 123/74
--- NOTE | 2018-03-26 18:20 | OP ---
DATE OF SURGERY: 03/26/2018 SUBJECTIVE: The patient is sitting on the edge of the bed, continued to complain of dizziness, and his description continued to feel sick like a dog, feels dizzy, lightheaded, continued to have cough with scanty sputum. When I examined him this afternoon, he was resting slightly propped up in bed, in no apparent respiratory distress. He was slightly pale, but not jaundiced or cyanosed. No lymphadenopathy, no thyromegaly, no jugular venous distension. No lower limb edema. His heart rate was 94, blood pressure was 93/57, temperature was 97.5, respiratory rate was 20, and oxygen saturation was 94% on 2 liters of oxygen. PHYSICAL EXAMINATION: HEAD, EYES, EARS, NOSE, AND THROAT: Normocephalic and atraumatic. NECK: Supple. HEART: Showed normal first and second heart sounds with no gallop, rub or murmur. CHEST: Clear to auscultation. No crepitation or rhonchi. ABDOMEN: Distended, soft, nontender. No guarding or rigidity. No organomegaly. All hernial orifice intact. Bowel sounds normal. NEUROLOGIC: He was awake, alert, responding appropriately. All cranial nerves intact. He moves extremities without difficulty. His intake over was 3680, output was 3650. LABORATORY DATA: His lab work this morning showed a white cell count of 6000, hemoglobin 12, hematocrit 35, MCV 95, and platelet count of 180,000. His chemistry as of yesterday showed a serum sodium 133, potassium 4.5, chloride 98, bicarbonate 27, anion gap of 8, BUN 43, creatinine was 1.7. His blood sugar was 307, calcium was 8.5. ASSESSMENT: 1. Community-acquired pneumonia. 2. Chronic obstructive pulmonary disease. 3. Lung cancer diagnosed with PET scan in October of this year. He is currently on chemotherapy. He received his first chemotherapy in January and second chemotherapy last week. 4. Hypertension. 5. Type 2 diabetes mellitus. 6. Peripheral neuropathy. 7. Benign prostatic hypertrophy. PLAN: Is to continue with oral levofloxacin. Continue with steroids. I cut down his Coreg yesterday; however, he continued to be hypertensive, but symptomatic. My plan is to start him on normal saline 500 mL bolus and continue with 150 mL per hour. Evaluate him tomorrow and if he if he remains stable, he can be discharged home tomorrow. ADIEL JACKSON MD DR: MADELAINE/steven JOB#: [id number] / [id number]
[2018-03-26 19:11] VITALS: BP 110/73
[2018-03-26] MEDS: risperiDONE 2 MG TABLET. PO SCH (20:27)
[2018-03-26] MEDS: INSULIN GLARGINE 300 UNITS/3 ML INSULN.PEN. SQ SCH (20:32)
[2018-03-26 22:34] VITALS: BP 127/76
[2018-03-27] MEDS: GABAPENTIN 300 MG CAPSULE. PO SCH ×3 (05:09→21:48)
[2018-03-27] MEDS: HEPARIN PF for SUB-Q USE 5,000 UNIT/0.5 ML VIAL. SQ SCH ×3 (05:13→22:02)
[2018-03-27 05:20] VITALS: BP 105/73
[2018-03-27] MEDS: IPRATRPIUM/ALBUTEROL 0.5/2.5MG 3 ML NEBU. NEB SCH ×4 (05:40→20:27)
[2018-03-27 06:06] LABS: CALCIUM 7.9 mg/dL (8.5-10.1); CREATININE 1.5 mg/dL (0.7-1.3); GFR 57.6; POTASSIUM 4.1 mmol/L (3.5-5.1)
[2018-03-27 06:21] LABS: HEMATOCRIT 27.3 % (39.0-53.0); HEMOGLOBIN 9.5 g/dL (13.0-17.5); RED BLOOD COUNT 2.84 x10^6/uL (4.30-5.70); RED CELL DISTRIBUTION WIDTH 13.1 % (11.5-14.5); WHITE BLOOD COUNT 3.9 x10^3/uL (4.0-11.0)
[2018-03-27] MEDS: PANTOPRAZOLE 40 MG TABLET. PO SCH (07:16)
[2018-03-27] MEDS: IV NORMAL SALINE 1,000ML 1,000 ML IV SCH ×2 (07:53→15:52)
[2018-03-27] MEDS: ASPIRIN 81 MG TAB.CHEW PO SCH (07:53)
[2018-03-27] MEDS: CARVEDILOL 6.25 MG TABLET PO SCH (07:54)
[2018-03-27] MEDS: INSULIN LISPRO 300 UNITS/3 ML INSULN.PEN. SQ SCH ×3 (07:56→17:32)
[2018-03-27] MEDS: LINAGLIPTIN 5 MG TABLET PO SCH (08:36)
[2018-03-27] MEDS: LACTOBACILLUS RHAMNOSUS GG 1 CAPSULE. PO SCH ×2 (08:36→21:48)
[2018-03-27] MEDS: predniSONE 10 MG TABLET PO SCH (08:36)
[2018-03-27] MEDS: BUDESONIDE 0.5 MG/2 ML NEBU NEB SCH ×2 (09:26→20:27)
[2018-03-27 10:42] VITALS: BP 109/71
[2018-03-27 13:09] VITALS: BP 111/67
[2018-03-27 13:10] VITALS: BP 89/56
[2018-03-27] MEDS: levoFLOXacin 500 MG TABLET PO SCH (14:11)
[2018-03-27 17:30] VITALS: BP 119/73
[2018-03-27] MEDS: MIDODRINE 5 MG TABLET PO SCH (17:58)
--- NOTE | 2018-03-27 18:48 | PN ---
DATE: 03/27/2018 SUBJECTIVE: The patient is a 62-year-old -[place] male patient who was admitted originally with a complaint of shortness of breath, cough with yellowish sputum. Also, complained of feeling dizzy and lightheaded. He denied any chest pain, orthopnea or paroxysmal nocturnal dyspnea. He apparently had lung cancer for which he was receiving chemotherapy, the last session was about last Thursday a week ago, who apparently was diagnosed in October of this year and was started on chemotherapy in December of this year at [facility]. He was extensively investigated in the Emergency Room and was found to have right lower lobe infiltrate and was admitted for IV antibiotic. He also had a CT scan of the head because of dizziness and a CT scan showed mild bilateral periventricular white matter hypodensities, likely chronic small vessel ischemic disease, no evidence of acute intracranial hemorrhage, no extraaxial fluid collection, no mass effect or midline shift, ventricular size are appropriate. I did start him on IV vancomycin as well as Levaquin as he is allergic to PENICILLIN, AZITHROMYCIN, and CLINDAMYCIN. He does have a Port-A-Cath; however, his blood cultures showed no growth. After 4 days, I did discontinue his vancomycin. He is now on oral Levaquin. He was also noted in the tapering course of steroids. He has received a huge amount of IV fluid. Unfortunately, the patient continues to complain of dizziness and he does continue to have marked postural hypotension. In fact, this afternoon at the difference between lying and standing blood pressure is more than 22 mmHg. We did cut his Coreg before or from 12.5 to 6.25 mg. My plan is to discontinue Coreg altogether. PHYSICAL EXAMINATION: GENERAL: When I examined him this afternoon, he was resting slightly propped up in bed, in no apparent distress. He was somewhat pale, but no jaundiced or cyanosed. No lymphadenopathy, no thyromegaly. No jugular venous distension. No lower limb edema. VITAL SIGNS: Her heart rate was 93, has risen to 127, when he stood up and blood pressure dropped down to 89/73 when he is standing. HEAD, EYES, EARS, NOSE AND THROAT: Showed normocephalic, atraumatic. NECK: Supple. HEART: Showed normal first and second heart sounds with no gallop, rub or murmur. CHEST: Clear to auscultation. No crepitation or rhonchi. ABDOMEN: Distended, soft, and nontender. NEUROLOGIC: He was awake, alert, responding appropriately. All his cranial nerves are intact. He moves extremities without difficulty. Unfortunately, he has marked dizziness and weakness and also had he desaturates without oxygen quickly down to 88% on room air. PLAN: My plan is to continue with the steroids. Continue with oral levofloxacin. Continue with intravenous fluid. I will discontinue his Coreg altogether and check his labs tomorrow and if he is able to. If he has no more postural hypertension and able to maintain his oxygen saturation, he can be discharged home. ADIEL JACKSON MD DR: MADELAINE/steven JOB#: [id number] / [id number]
[2018-03-27] MEDS: risperiDONE 2 MG TABLET. PO SCH (21:48)
[2018-03-27] MEDS: INSULIN GLARGINE 300 UNITS/3 ML INSULN.PEN. SQ SCH (22:03)
[2018-03-27 23:21] VITALS: BP 130/82
[2018-03-28] MEDS: IV NORMAL SALINE 1,000ML 1,000 ML IV SCH (04:05)
[2018-03-28 05:26] VITALS: BP 130/76
[2018-03-28] MEDS: IPRATRPIUM/ALBUTEROL 0.5/2.5MG 3 ML NEBU. NEB SCH ×2 (05:30→09:37)
[2018-03-28] MEDS: GABAPENTIN 300 MG CAPSULE. PO SCH ×2 (06:28→13:11)
[2018-03-28] MEDS: HEPARIN PF for SUB-Q USE 5,000 UNIT/0.5 ML VIAL. SQ SCH (06:29)
[2018-03-28] MEDS: PANTOPRAZOLE 40 MG TABLET. PO SCH (06:55)
[2018-03-28] MEDS: MIDODRINE 5 MG TABLET PO SCH ×2 (06:55→13:10)
[2018-03-28] MEDS: ASPIRIN 81 MG TAB.CHEW PO SCH (08:35)
[2018-03-28] MEDS: INSULIN LISPRO 300 UNITS/3 ML INSULN.PEN. SQ SCH ×2 (08:36→12:25)
--- NOTE | 2018-03-28 08:43 | PDOC ---
PROVIDER NOTE PROVIDER NOTE PROVIDER NOTE CARDIOLOGY CONSULTATION NOTE - late entry for 03/27/2018. REASON FOR CONSULTATION: orthostatic hypotension HPI 62 y.o male presented with dizziness for the last few days. He reports lightheadedness upon standing. He has been treated with abx, steroids and IVF. Despite this continues to be orthostatic. No chest pain. He has no dyspnea but difficulty with ambulating to due dizziness. Pmhx: 1. DM2 2. HTN 3. COPD 4. Stage 1, lung cancer. Socx: No alcohol, tob or illicits. Famhx: NC ROS: Negative for 03/21 systems reviewed unless otherwise noted above in HPI ALL: multiple abx Current pertinent vasoactive meds: Prednisone 30mg daily Coreg (stopped) Physical Exam: I/O - even. Morbidly obese man in no distress. +orthostasis Normal heart tones. mild bilat rhonchi. obese, protrubent abd neck veins flat. no edema. Labs reviewed Impression: 1. Orthostatic hypotension/tachycardia with underlying history of neuropathy 2. HTN 3. Morbid obesity DDx: Probable peripheral neuropathy due to DM and malignancy Plan: 1. Attempt conservative measures with compression socks, abd binder and midodrine. Monitor BP response. 2. He is actually even on is fluids as he has received 11L in and put out 11 L. Give another fluid bolus. May respond to PRBC's, would be a consideration although lab changes likely dilutional. Supportive care. will consider echo if conservative measures do not improve symptoms. thanks for this consult. BRODERICK SAUNDERS MD Mar 28, 2018 08:43
[2018-03-28 09:01] VITALS: BP 123/82
[2018-03-28 09:02] VITALS: BP 118/79
[2018-03-28 09:03] VITALS: BP 113/74
--- NOTE | 2018-03-28 09:14 | PDOC ---
PROVIDER NOTE PROVIDER NOTE PROVIDER NOTE BP much better today with no orthostasis Continue midodrine, binder and compression socks. No new recs. Supportive care. Discussed with nursing to educate patient on BID BP checks to ensure he doesn't develop any supine hypertension on midodrine THanks. Pls call with questions BRODERICK SAUNDERS MD Mar 28, 2018 09:13
[2018-03-28] MEDS: LACTOBACILLUS RHAMNOSUS GG 1 CAPSULE. PO SCH (09:15)
[2018-03-28] MEDS: LINAGLIPTIN 5 MG TABLET PO SCH (09:15)
[2018-03-28] MEDS: predniSONE 10 MG TABLET PO SCH (09:15)
[2018-03-28] MEDS: BUDESONIDE 0.5 MG/2 ML NEBU NEB SCH (09:37)
[2018-03-28 11:17] VITALS: BP 105/63
[2018-03-28] MEDS: levoFLOXacin 500 MG TABLET PO SCH (13:11)
--- NOTE | 2018-03-28 14:16 | DS ---
DATE OF DISCHARGE: 03/28/2018 HOSPITAL COURSE: The patient is a 62-year-old male patient who was admitted on 03/23/2018 through the Emergency Room with a complaint of cough with yellowish sputum, feeling dizzy and lightheaded. He also complained of shortness of breath; however, at the time, he denied any chest pain, denied any orthopnea or paroxysmal nocturnal dyspnea, denied any chills, rigors or fever. He apparently has lung cancer for which he has been receiving chemotherapy. The last session was only about 2 days prior to admission. He was initially diagnosed in October of this year and was started chemotherapy in at [facility]. While in the Emergency Room, he was extensively investigated and was found to have right lower lobe infiltrate and was admitted for IV antibiotic. He has had also CT scan of the head because of dizziness for almost [address] scan showed mild bilateral periventricular white matter hypodensities, likely chronic small vessel disease ischemic disease, but there was no evidence of any acute intracranial hemorrhage, no extraaxial fluid collection, no mass effect or midline shift. The ventricular size are basal cisterns are patent. No fracture identified. The oquendo white matter differentiation is preserved. Globes and orbits are within normal limits and his paranasal sinuses and mastoid air cells were normal and clear. He was started on IV vancomycin as well as ceftriaxone as he is allergic to PENICILLIN, AMOXICILLIN, AZITHROMYCIN, and CLINDAMYCIN. He also had a Port-A-Cath and he was started also on DuoNeb and IV steroids. His white cell count remained stable. He was afebrile throughout his stay; however, he has consistently complained of dizziness and he has marked postural hypotension with difference between systolic blood pressure lying and standing was more than 20 mmHg. This was demonstrated on multiple occasions and eventually I have consulted Dr. Franks and the patient was started on midodrine, abdominal binder, and DELIO hoses, and today, there was no postural hypertension. Given that his blood cultures are negative, we discontinued the vancomycin. The patient will be discharged home today to finish a course of oral antibiotic in the form of levofloxacin. We will continue with midodrine as well as tapering course of steroids and will follow with his oncologist as well as Dr. Franks in 2 weeks' time. PHYSICAL EXAMINATION: GENERAL: When I saw him this afternoon, he looked well and was clearly in no apparent respiratory distress. No pallor, jaundice, cyanosis, or thyromegaly. No jugular venous distention. No limb edema. VITAL SIGNS: His heart rate was 74, blood pressure was 130/76, temperature was 98.4, respiratory rate was 18, and oxygen saturation was 97% on 2 liters of oxygen. HEAD, EYES, EARS, NOSE AND THROAT: Showed normocephalic, atraumatic. NECK: Supple. HEART: Showed normal first and second heart sounds. No gallop, rub, or murmur. CHEST: Clear to auscultation. No crepitation or rhonchi. ABDOMEN: Distended, soft, nontender. No guarding or rigidity. No organomegaly. All hernial orifices intact. Bowel sounds normal. NEUROLOGIC: He was awake, alert, responding appropriately. All cranial nerves intact. He moves extremities without difficulty. LABORATORY DATA: His lab work showed a white cell count of 3900, hemoglobin 9.5, hematocrit 27, MCV 96, and platelet count of 140,000. His chemistry showed a serum sodium 137, potassium 4.1, chloride 103, bicarbonate 28, anion gap of 6, BUN 28, creatinine 1.5, estimated GFR was 57 mL per minute. His glucose was 215 and calcium was 7.9. DISCHARGE MEDICATIONS: He will be discharged home to continue on albuterol sulfate 1 puff every 6 hours, aspirin 81 mg once a day, Soma 350 mg 3 times a day, carvedilol for Coreg 12.5 mg twice a day. He is on famotidine 20 mg once a day, fluconazole 200 mg daily for 7 days, Advair Diskus 250/50 one puff twice a day, gabapentin 300 mg every 8 hours. He is on Lantus insulin for Toujeo 30 units at bedtime, lorazepam 0.5 mg every 6 hours, nitroglycerin 0.4 mg every 5 minutes x 3, ondansetron 4 mg sublingually every 8 hours, Protonix 40 mg once a day, Compazine 10 mg every 6 hours as needed, risperidone 4 mg at bedtime, Crestor 5 mg on Thursday, Thursday and Thursday, sitagliptin phosphate for Januvia 100 mg once a day, and tiotropium bromide for Spiriva HandiHaler 1 inhalation once a day. He will be discharged also on levofloxacin 500 mg once a day for 3 more days as well as midodrine 5 mg 3 times a day and a tapering course of steroid. FINAL DISCHARGE DIAGNOSES: 1. Community-acquired pneumonia. 2. Lung cancer, status post chemotherapy. 3. Chronic obstructive pulmonary disease exacerbation. 4. Type 2 diabetes mellitus with diabetic autonomic neuropathy and marked postural hypotension 5. Chronic kidney disease, most likely due to diabetic peripheral neuropathy. He also has hyperlipidemia and benign prostatic hypertrophy. ADIEL JACKSON MD DR: MADELAINE/steven JOB#: [id number] / [id number]
[2018-03-28 14:30] VITALS: BP 111/72
== END 2018-03-28 14:55 | disposition home health service (06) | DRG 871 ==
LOC: ER 09:20 → 1 SOUTH 12:57
PROVIDERS: ADMIT Internal Medicine; ATTEND Internal Medicine
DX: A41.9 Sepsis, unspecified organism (principal); J18.9 Pneumonia, unspecified organism; J44.0 Chronic obstructive pulmonary disease with (acute) lower respiratory infection; C34.90 Malignant neoplasm of unspecified part of unspecified bronchus or lung; E87.1 Hypo-osmolality and hyponatremia; J44.1 Chronic obstructive pulmonary disease with (acute) exacerbation; Y95 Nosocomial condition; E83.42 Hypomagnesemia; E11.65 Type 2 diabetes mellitus with hyperglycemia; E11.22 Type 2 diabetes mellitus with diabetic chronic kidney disease; E11.43 Type 2 diabetes mellitus with diabetic autonomic (poly)neuropathy; E78.00 Pure hypercholesterolemia, unspecified; M19.90 Unspecified osteoarthritis, unspecified site; E66.01 Morbid (severe) obesity due to excess calories; E11.51 Type 2 diabetes mellitus with diabetic peripheral angiopathy without gangrene; F17.210 Nicotine dependence, cigarettes, uncomplicated; E78.5 Hyperlipidemia, unspecified; I95.1 Orthostatic hypotension; I12.9 Hypertensive chronic kidney disease with stage 1 through stage 4 chronic kidney disease, or unspecified chronic kidney disease; F20.9 Schizophrenia, unspecified; H93.19 Tinnitus, unspecified ear; N40.0 Benign prostatic hyperplasia without lower urinary tract symptoms; R79.1 Abnormal coagulation profile; N18.9 Chronic kidney disease, unspecified; Z80.1 Family history of malignant neoplasm of trachea, bronchus and lung; Z83.3 Family history of diabetes mellitus; Z80.42 Family history of malignant neoplasm of prostate; Z85.118 Personal history of other malignant neoplasm of bronchus and lung; Z88.0 Allergy status to penicillin; Z92.21 Personal history of antineoplastic chemotherapy; Z79.899 Other long term (current) drug therapy; Z88.1 Allergy status to other antibiotic agents; Z68.34 Body mass index [BMI] 34.0-34.9, adult
CPT/HCPCS: 36415; 36600; 70450; 71045; 78582; 80048; 80053; 80202; 82550; 82803; 82947; 83605; 83735; 83880; 84484; 85025; 85027; 85379; 85610; 85730; 87040; 93005; 94640; 96365; 96368; 96374; 96375; 99292; A9540; A9558; J0696; J1815; J1956; J2920; J2930; J3370; J7040; J7512; J7620; J7626; 97116; 97530; 99291-25; J7030

== ENCOUNTER → 2018-11-05 | Outpatient (CLI) | payer MEDICAID, OTHER ==
[~2018-11-05] MED LIST changes: +ALBU2.5V8 IH; +ALBU2.5V8 INH; -ALBU6.7H IH; +APIX5TAB3 PO; +CARI350T PO; +CARV12.5 PO; +CRESTOR5 MG PO; +DEXA4TAB PO; +FAMO-63 PO; +FLUC200T PO; +FLUT1DIS3 IH; +HYDR-2145 PO; +HYDR-2155 PO; -HYDR-2758 PO; +HYDR-3165 PO; -HYDR-971 PO; -HYDR25TA9 PO; +INSU100I17 SQ; +INSU200I4 SQ; +INSU300I SQ; +LORA-254 PO; +LOSA100T14 PO; -LOSA100T7 PO; +MAGN400T3 PO; +METO50TA29 PO; +ONDA4TAB10 SL; +PANT40TA3 PO; +PROC10TA57 PO; +RISP1TAB43 PO; +RISP4TAB2 PO; +SITA100T PO; +SULF1TAB23 PO; +TIOT18CA IH
[2018-11-05 09:48] LABS: BASO % 0 % (0-3); EOS # 0.1 x10^3/uL (0.0-0.7); EOS % 2 % (0-3); HEMATOCRIT 28.8 % (39.0-53.0); HEMOGLOBIN 9.7 g/dL (13.0-17.5); LYMPH % 34 % (24-48); MEAN CORPUSCULAR HEMOGLOBIN 32 pg (25-35); MEAN CORPUSCULAR HGB CONC 34 g/dL (31-37); MEAN CORPUSCULAR VOLUME 96 fL (79-100); MONO # 0.4 x10^3/uL (0.0-1.1); MONO % 7 % (0-9); NEUT # 3.4 x10^3uL (1.8-7.7); NEUT % 57 % (31-73); PLATELET COUNT 263 x10^3/uL (140-400); RED BLOOD COUNT 2.99 x10^6/uL (4.30-5.70); RED CELL DISTRIBUTION WIDTH 13.7 % (11.5-14.5)
[2018-11-05 09:58] LABS: ALBUMIN 3.2 g/dL (3.4-5.0); CALCIUM 9.3 mg/dL (8.5-10.1); CREATININE 2.5 mg/dL (0.7-1.3); GFR 31.8; PHOSPHORUS 3.7 mg/dL (2.6-4.7); POTASSIUM 4.9 mmol/L (3.5-5.1)
[2018-11-06 05:08] LABS: MICRO CREAT RATIO 4.8 mg/g creat (0.0-30.0); MICROALB RD UR 5.4 ug/mL (Not Estab.)
[2018-11-06 12:08] LABS: CREATININE,RANDOM URINE 124.7 mg/dL (Not Establ.)
== END | disposition home or self-care (01) ==
LOC: LAB 08:55
PROVIDERS: ATTEND Internal Medicine Nephrology
DX: E11.22 Type 2 diabetes mellitus with diabetic chronic kidney disease (principal); I12.9 Hypertensive chronic kidney disease with stage 1 through stage 4 chronic kidney disease, or unspecified chronic kidney disease; N18.9 Chronic kidney disease, unspecified; D64.9 Anemia, unspecified
CPT/HCPCS: 36415; 80069; 82043; 82570; 84156; 85025

== ENCOUNTER 2018-11-10 17:32 | Inpatient (IN) | payer OTHER, MEDICAID ==
[~2018-11-10] VITALS: Ht 170.2 cm; Wt 118.8 kg
[~2018-11-10 17:32] MED LIST changes: -APIX5TAB3 PO; -INSU100I17 SQ; -INSU200I4 SQ; -MAGN400T3 PO; -METO50TA29 PO; -RISP1TAB43 PO; -RISP4TAB2 PO; -SULF1TAB23 PO
--- NOTE | 2018-11-10 19:00 | RAD ---
EXAM: Abdomen, 2 views. HISTORY: Constipation. Rectal bleeding. COMPARISON: None. FINDINGS: Frontal upright and supine views of the abdomen are obtained. There is moderate proximal colonic and rectal stool. There is no bowel obstruction. There is no free air. IMPRESSION: 1. Moderate colonic and rectal stool. 2. Nonobstructive bowel gas pattern. Electronically signed by: Jeannine Mueller MD (11/10/2018 6:58 PM) [facility]
--- NOTE | 2018-11-10 19:21 | PHYS DOC ---
Past History Past Medical History: Arthritis, Cancer, Diabetes, High Cholesterol, Hypertension, Schizophrenia, Other Past Surgical History: Other Additional Past Surgical Histo: had extensive local I&D of abscesses underneath his arms Smoking: Non-smoker Alcohol Use: None Drug Use: None Adult General Chief Complaint Chief Complaint: RECTAL BLEED [facility] HPI Patient is a 63-year-old male who presents with complaint of rectal bleeding. Patient states that he has been constipated for quite some time and states that he had been straining to have a bowel movement. He states that he was not able to move his bowels. He states that when he had checked his underwear later he f ound some streaking of bright red blood on his underwear. He denies any blood in the toilet. He does indicate that he has mild pain in his rectum. He denies any chest pain or acute shortness of breath. He does admit to COPD and his O2 requiring 24 hours a day.[] Review of Systems Review of Systems Constitutional: Denies fever or chills [] Respiratory: Denies acute shortness of breath [] Cardiovascular: No additional information not addressed in HPI [] GI: Denies abdominal pain, nausea, vomiting or diarrhea. Complains of constipation and rectal bleeding. [] : Denies dysuria or hematuria [] Musculoskeletal: Denies back pain or joint pain [] Integument: Denies rash or skin lesions [] Neurologic: Denies headache, focal weakness or sensory changes [] Endocrine: Denies polyuria or polydipsia [] All other systems were reviewed and found to be within normal limits, except as documented in this note. Allergies Allergies Allergies Coded Allergies Type Severity Reaction Last Updated Verified amoxicillin Allergy Severe Rash 01/25/18 Yes ampicillin Allergy Severe Rash 01/25/18 Yes Penicillins Allergy Intermediate Rash 01/25/18 Yes azithromycin Allergy Intermediate 03/24/18 Yes clindamycin Allergy Intermediate 01/25/18 Yes Physical Exam Physical Exam Constitutional: Well developed, well nourished, no acute distress, non-toxic appearance. [] HENT: Normocephalic, atraumatic, bilateral external ears normal, oropharynx moist, no oral exudates, nose normal. [] Eyes: PERRLA, EOMI, conjunctiva normal, no discharge. [] Neck: Normal range of motion, no tenderness, supple, no stridor. [] Cardiovascular:Heart rate regular rhythm, no murmur [] Lungs & Thorax: Bilateral breath sounds clear to auscultation [] Abdomen: Bowel sounds normal, soft, no tenderness. [] Skin: Warm, dry, no erythema, no rash. [] Extremities: No tenderness, no cyanosis, no clubbing, ROM intact. [] Neurologic: Alert and oriented X 3, no focal deficits noted. [] Current Patient Data Vital Signs Vital Signs Date Time Temp Pulse Resp B/P (MAP) Pulse Ox O2 Delivery O2 Flow Rate FiO2 11/10/18 17:52 98.2 87 18 96 Nasal Cannula 2.0 EKG EKG [] Radiology/Procedures Radiology/Procedures [] Impressions: PROCEDURE: ABDOMEN SUPINE & UPRIGHT EXAM: Abdomen, 2 views. HISTORY: Constipation. Rectal bleeding. COMPARISON: None. FINDINGS: Frontal upright and supine views of the abdomen are obtained. There is moderate proximal colonic and rectal stool. There is no bowel obstruction. There is no free air. IMPRESSION: 1. Moderate colonic and rectal stool. 2. Nonobstructive bowel gas pattern. Electronically signed by: Jeannine Mueller MD (11/10/2018 6:58 PM) [facility] Course & Med Decision Making Course & Med Decision Making Pertinent Labs and Imaging studies reviewed. (See chart for details) [] Dragon Disclaimer Dragon Disclaimer This electronic medical record was generated, in whole or in part, using a voice recognition dictation system. Departure Departure: Impression: Primary Impression: Hyperkalemia Additional Impressions: Cqatd-ty-exronpl kidney injury Anemia of chronic disease Rectal bleeding Disposition: ADMITTED INPATIENT Admitting Physician: Lance Harris Condition: GOOD Referrals: TERRY CULLEN (PCP) Problem Qualifiers Additional Impressions: [id number] kidney injury Acute renal failure type: unspecified Chronic kidney disease stage: unspecified stage Qualified Codes: N17.9 - Acute kidney failure, unsp ecified; N18.9 - Chronic kidney disease, unspecified MARGARET HU Jr. DO Nov 10, 2018 19:21
[2018-11-10 19:35] LABS: BASO % 0 % (0-3); EOS # 0.1 x10^3/uL (0.0-0.7); EOS % 2 % (0-3); HEMATOCRIT 25.8 % (39.0-53.0); HEMOGLOBIN 8.7 g/dL (13.0-17.5); LYMPH # 2.1 x10^3/uL (1.0-4.8); LYMPH % 33 % (24-48); MEAN CORPUSCULAR HEMOGLOBIN 33 pg (25-35); MEAN CORPUSCULAR HGB CONC 34 g/dL (31-37); MEAN CORPUSCULAR VOLUME 96 fL (79-100); MONO # 0.5 x10^3/uL (0.0-1.1); MONO % 8 % (0-9); NEUT # 3.6 x10^3uL (1.8-7.7); NEUT % 57 % (31-73); PLATELET COUNT 247 x10^3/uL (140-400); RED BLOOD COUNT 2.68 x10^6/uL (4.30-5.70); RED CELL DISTRIBUTION WIDTH 13.7 % (11.5-14.5); WHITE BLOOD COUNT 6.4 x10^3/uL (4.0-11.0)
[2018-11-10 19:48] LABS: ALBUMIN 3.1 g/dL (3.4-5.0); ALBUMIN/GLOBULIN RATIO 0.8 (1.0-1.7); CALCIUM 8.9 mg/dL (8.5-10.1); GFR 25.8; POTASSIUM 5.3 mmol/L (3.5-5.1); TOTAL BILIRUBIN 0.1 mg/dL (0.2-1.0); TOTAL PROTEIN 6.8 g/dL (6.4-8.2)
[2018-11-10] MEDS ORDERED: SODIUM POLYSTYRENE SULFONATE 15 GM/60 ML ORAL.SUSP. PO ONE (20:15)
[2018-11-10] MEDS ORDERED: IV NORMAL SALINE 1,000ML 1,000 ML IV ONE (20:15)
[2018-11-10] MEDS: IV NORMAL SALINE 1,000ML 1,000 ML IV SCH (20:42)
[2018-11-10 21:56] VITALS: BP 106/69
[2018-11-10] MEDS ORDERED: RISP1TAB43 PO (22:53)
[2018-11-10] MEDS ORDERED: ACETAMINOPHEN 325 MG TABLET PO PRN (23:00)
[2018-11-11 05:23] VITALS: BP 103/68
[2018-11-11] MEDS: IV NORMAL SALINE 1,000ML 1,000 ML IV SCH ×2 (05:41→14:33)
[2018-11-11 05:51] LABS: BASO % 1 % (0-3); EOS # 0.2 x10^3/uL (0.0-0.7); EOS % 3 % (0-3); HEMATOCRIT 24.8 % (39.0-53.0); HEMOGLOBIN 8.4 g/dL (13.0-17.5); LYMPH # 2.4 x10^3/uL (1.0-4.8); LYMPH % 41 % (24-48); MEAN CORPUSCULAR HEMOGLOBIN 33 pg (25-35); MEAN CORPUSCULAR HGB CONC 34 g/dL (31-37); MEAN CORPUSCULAR VOLUME 97 fL (79-100); MONO # 0.4 x10^3/uL (0.0-1.1); MONO % 8 % (0-9); NEUT # 2.8 x10^3uL (1.8-7.7); NEUT % 47 % (31-73); PLATELET COUNT 244 x10^3/uL (140-400); RED BLOOD COUNT 2.55 x10^6/uL (4.30-5.70); RED CELL DISTRIBUTION WIDTH 13.9 % (11.5-14.5); WHITE BLOOD COUNT 5.9 x10^3/uL (4.0-11.0)
[2018-11-11 05:59] LABS: CALCIUM 8.6 mg/dL (8.5-10.1); CREATININE 2.9 mg/dL (0.7-1.3); GFR 26.8
--- NOTE | 2018-11-11 08:14 | EKG ---
[address] [address] Test Date: 2018-11-10 Test Time: 21:11:07 Pat Name: MARCELO DONIS Department: Room: Gender: M Credit Charge Authorizer: : [id number] Requested By: MARGARET HU Order Number: [id number] Reading MD: Measurements Intervals [place] Rate: 69 P: 41 WA: 128 QRS: 38 QRSD: 84 T: 41 QT: 430 QTc: 462 Interpretive Statements SINUS RHYTHM NO SPECIFIC ECG ABNORMALITIES RI6.01 No previous ECG available for comparison
[2018-11-11] MEDS ORDERED: INSU100I17 SQ (10:41)
[2018-11-11] MEDS ORDERED: NITR0.4T22 SL (10:41)
[2018-11-11] MEDS ORDERED: INSU200I4 SQ (10:41)
[2018-11-11] MEDS ORDERED: METO50TA29 PO (10:41)
[2018-11-11] MEDS ORDERED: APIX5TAB3 PO (10:41)
[2018-11-11] MEDS ORDERED: RISP4TAB2 PO (10:41)
[2018-11-11] MEDS ORDERED: MAGN400T3 PO (10:41)
[2018-11-11] MEDS ORDERED: SULF1TAB23 PO (10:41)
[2018-11-11 13:14] VITALS: BP 112/66
[2018-11-11] MEDS ORDERED: NITROGLYCERIN SUBLINGUAL 0.4 MG BOTTLE OF 25. SL PRN (15:00)
[2018-11-11] MEDS: IPRATRPIUM/ALBUTEROL 0.5/2.5MG 3 ML NEBU. NEB SCH ×2 (15:35→19:26)
--- NOTE | 2018-11-11 16:13 | RAD ---
CT ABDOMEN PELVIS WO CONTRAST Indication: Severe constipation or obstruction. Exposure: One or more of the following individualized dose reduction techniques were utilized for this examination: 1. Automated exposure control 2. Adjustment of the mA and/or kV according to patient size 3. Use of iterative reconstruction technique. Comparison: None Technique: No intravenous contrast given. No oral contrast per request. Findings: Evaluation of solid viscera, bowel and vasculature is compromised by the noncontrast technique. There are several tiny nodular opacities clustered in the right lower lobe. There is a small pericardial effusion. Liver and spleen are not enlarged. Pancreas appears unremarkable. No adrenal mass. No evidence of obstructive calculus or hydronephrosis. No calcified gallstone. The aorta is nonaneurysmal. Mild aortic calcification. No significant lymph node enlargement. No significant small bowel distention. Luab-cs-npshmvln retained stool in the colon. No evidence of acute colitis. The appendix is normal. No evidence of ascites or pneumoperitoneum. Urinary bladder is distended, measuring 17.5 cm longitudinal. No evidence of wall thickening. Degenerative changes are seen at the spine greatest at the lumbosacral junction which in combination with facet joint disease results in stenosis, to lesser extent seen at other levels. Mild subchondral density within the anterior right femoral head, suspicious for osteonecrosis. IMPRESSION: 1. Mild to moderate constipation. 2. Small subchondral density at the anterior right femoral head, suspicious for osteonecrosis. 3. There are small nodular opacities clustered in the right lung base. Most likely represent inflammatory/infectious etiology or aspiration. However, recommend follow-up chest CT scan in a few months. 4. Mild urinary bladder distention. Electronically signed by: Handy Carson MD (11/11/2018 4:10 PM) [id number]
[2018-11-11] MEDS: DOCUSATE SODIUM 100 MG CAPSULE PO SCH ×2 (16:21→22:11)
[2018-11-11] MEDS: POLYETHYLENE GLYCOL 3350 17 GM PACKET. PO SCH (16:21)
[2018-11-11] MEDS: INSULIN LISPRO 300 UNITS/3 ML INSULN.PEN. SQ SCH (16:30)
[2018-11-11 16:35] VITALS: BP 112/75
--- NOTE | 2018-11-11 17:34 | HP ---
ADMIT DATE: 11/10/2018 HISTORY OF PRESENT ILLNESS: The patient is a 64-year-old -[place] male patient, who apparently came to the Emergency Room complaining of rectal bleeding. The patient stated that he has been constipated for quite some time, stated he had been straining to have a bowel movement. He stated that he was not able to move his bowels and when he checked his underwear later, he found some streaking of bright red blood in his underwear. He denies any blood in the toilet. He does indicate that he has mild pain in his rectal area. Denied any chest pain or shortness of breath. He is known to have COPD and is on oxygen continuously. He was investigated in the Emergency Room and his lab work showed that he has hyperkalemia and also acute on chronic kidney injury. His most recent serum creatinine on 04/04/2019 was 1.5 and his creatinine today was 3 mg. He was admitted for treatment of hyperkalemia and rehydration. PAST MEDICAL HISTORY: Significant for stage 1 lung cancer for which he is diagnosed with a PET scan in 11/2017, was started on chemotherapy and radiation therapy in 12/2017 or 01/2018. He is known to have COPD, type 2 diabetes, hypertension, peripheral neuropathy, and benign prostatic hypertrophy. PAST SURGICAL HISTORY: Significant for laser surgery for venereal warts, tonsillectomy, testicular torsion, lymph node resection of the left armpit. He has also undergone esophagogastroduodenoscopy, colonoscopy, and polypectomy. He also said that he has what seemed to be a collapsed lung and had had surgery at [facility]. He apparently has history of PE also for which he is on apixaban. ALLERGIES: He is allergic to PENICILLIN, AMOXICILLIN, AZITHROMYCIN as well as CLINDAMYCIN. MEDICATIONS: He is currently on following medications: He is on sulfamethoxazole trimethoprim 2 tablets twice a day for 10 days; tiotropium bromide 2 puffs daily; Soma 350 mg 3 times a day; apixaban 5 mg twice a day; Crestor 5 mg every Thursday, Thursday, Thursday; nitroglycerin 0.4 mg sublingually every 5 minutes x 3; metoprolol succinate 50 mg once a day; gabapentin 600 mg 3 times a day; risperidone 4 mg at bedtime; magnesium oxide 400 mg daily; Protonix 40 mg daily; Januvia 100 mg daily. He is on NovoLog insulin 12 units before. He is also on Tresiba FlexTouch 15 units subcutaneous at bedtime. FAMILY HISTORY: He has 2 brothers, both brothers are younger and the youngest brother has prostate cancer. One sister had lung cancer and the other has type 2 diabetes. His father at the age 62 because of lung cancer and his mother at the age of 73 because of lung cancer. SOCIAL HISTORY: , has 3 biological children and 1 stepson. He quit smoking on 05/31/2016. He used to smoke a pack a day and smoked for almost 40 years. He does not drink alcohol or use any recreational drugs. He is currently on disability. He was in [employer], worked also at [employer] and many other jobs. REVIEW OF SYSTEMS: The patient denied any blurring of vision, cataract, glaucoma or macular degeneration. Denied any earache, tinnitus or sensorineural deafness. Denied any nosebleeds, stuffy nose or postnasal drip. Denied any sore throat, sore tongue, toothache, hoarseness of voice or difficulty swallowing. Denied any nausea, vomiting, diarrhea or constipation. Did complain of constipation. Denied any hematemesis and did have fresh blood per rectum. Denied any dysuria, frequency or hematuria. Did complain of hesitancy and nocturia. Denied any chest pains. Denied any dizziness, lightheadedness, or vertigo. Did complain of pain in both hands and feet because of severe painful peripheral neuropathy. PHYSICAL EXAMINATION: GENERAL: On examining him, he looked well and was clearly in no apparent respiratory distress. No pallor, jaundice, cyanosis, or thyromegaly. No jugular venous distention. No lower limb edema. VITAL SIGNS: His heart rate on arrival to the hospital showed that his heart rate was 78, blood pressure was 106/69, temperature was 97.5, respiratory rate 20, and oxygen saturation was 95%. HEAD, EYES, EARS, NOSE, AND THROAT: Showed normocephalic, atraumatic. NECK: Supple. HEART: Showed normal first and second heart sounds with no gallop, rub or murmur. CHEST: Clear to auscultation. No crepitation or rhonchi. ABDOMEN: Distended, soft, nontender. No guarding or rigidity. No organomegaly. All hernial orifices are intact. Bowel sounds normal. NEUROLOGIC: He is awake, alert, responding appropriately. All his cranial nerves are intact. EXTREMITIES: He moves all extremities without difficulty. LABORATORY DATA: In the Emergency Room showed a white cell count of 6400, hemoglobin 8.7, hematocrit 25.8, MCV 96, and platelet count 247,000. Serum sodium was 136, potassium 5.3, chloride 102, bicarbonate 27, anion gap of 7, BUN 33, creatinine 3, estimated GFR was 25 mL per minute, his glucose 154, calcium was 8.9. Total bilirubin, AST, ALT, alkaline phosphatase were normal. Total protein was 6.8, albumin was 3.1. He did have x-ray of his abdomen, which showed that there is moderate proximal colonic and rectal stool. There is no bowel obstruction. There is no free air. ASSESSMENT AND PLAN: 1. The patient was admitted with hyperkalemia. 2. Acute on chronic kidney injury. 3. Constipation. 4. Small cell carcinoma of the lung, on chemotherapy. The patient was started on 09/05/2018 on trimethoprim sulfamethoxazole, which is obviously might be the reason why he has hyperkalemia and acute kidney injury. He has multiple other medical problems including hypertension, hyperlipidemia, chronic obstructive pulmonary disease, and benign prostatic hypertrophy, peripheral neuropathy. We will continue with IV fluid. I will definitely hold all nephrotoxic medication. We will obviously scan his bladder to make sure that he is not retaining his urine and we will follow his labs closely. ADIEL JACKSON MD DR: MADELAINE/steven JOB#: [id number] / [id number]
[2018-11-11 19:42] VITALS: BP 117/69
[2018-11-11] MEDS: risperiDONE 1 MG TABLET. PO SCH (22:11)
[2018-11-11] MEDS: risperiDONE 2 MG TABLET. PO SCH (22:11)
[2018-11-11] MEDS: GABAPENTIN 300 MG CAPSULE. PO SCH (22:12)
[2018-11-11] MEDS: APIXABAN 5 MG TABLET. PO SCH (22:12)
[2018-11-11] MEDS: MAGNESIUM OXIDE 400 MG TABLET PO SCH (22:12)
[2018-11-11] MEDS: INSULIN GLARGINE 300 UNITS/3 ML INSULN.PEN. SQ SCH (22:23)
[2018-11-11 23:20] VITALS: BP 123/81
[2018-11-12] MEDS: IV NORMAL SALINE 1,000ML 1,000 ML IV SCH ×3 (00:30→19:26)
[2018-11-12] MEDS: IPRATRPIUM/ALBUTEROL 0.5/2.5MG 3 ML NEBU. NEB SCH ×4 (04:45→20:42)
[2018-11-12 05:21] VITALS: BP 109/86
[2018-11-12 06:46] LABS: CALCIUM 8.5 mg/dL (8.5-10.1); CREATININE 2.7 mg/dL (0.7-1.3); GFR 29.1; POTASSIUM 4.9 mmol/L (3.5-5.1)
[2018-11-12] MEDS: POLYETHYLENE GLYCOL 3350 17 GM PACKET. PO SCH (08:12)
[2018-11-12] MEDS: ATORVASTATIN CALCIUM 20 MG TABLET PO SCH (08:12)
[2018-11-12] MEDS: METOPROLOL SUCC 24HR ER 50 MG TAB.ER.24H. PO SCH (08:13)
[2018-11-12] MEDS: GABAPENTIN 300 MG CAPSULE. PO SCH ×3 (08:13→21:00)
[2018-11-12] MEDS: MAGNESIUM OXIDE 400 MG TABLET PO SCH ×2 (08:13→21:00)
[2018-11-12] MEDS: DOCUSATE SODIUM 100 MG CAPSULE PO SCH ×2 (08:13→21:00)
[2018-11-12] MEDS: APIXABAN 5 MG TABLET. PO SCH ×2 (08:13→21:00)
[2018-11-12] MEDS: LINAGLIPTIN 5 MG TABLET PO SCH (08:13)
[2018-11-12] MEDS: CARISOPRODOL 350 MG TABLET PO PRN (08:20)
[2018-11-12] MEDS: INSULIN LISPRO 300 UNITS/3 ML INSULN.PEN. SQ SCH ×3 (08:26→16:30)
[2018-11-12] MEDS ORDERED: NON FORMULARY ITEM (Tiotropium Bromide (Spiriva) 2 PUFF) IH SCH (09:00)
[2018-11-12 11:40] VITALS: BP 124/80
--- NOTE | 2018-11-12 11:47 | PDOC ---
SUBJECTIVE: Weakness NO Bowel movement since Thursday no further BRB per rectum OBJECTIVE: Problems: Problems Medical Problems: (1) Seaos-lv-hvkswiy kidney injury Status: Acute (2) Anemia of chronic disease Status: Acute (3) Hyperkalemia Status: Acute (4) Rectal bleeding Status: Acute Vital Signs: Vital Signs Date Time Temp Pulse Resp B/P (MAP) Pulse Ox O2 Delivery O2 Flow Rate FiO2 11/12/18 10:39 98 Nasal Cannula 2.0 11/12/18 08:13 88 109/86 11/12/18 05:21 97.8 24 I & O Intake and Output 11/12/18 07:00 Intake Total 2746 ml Output Total 1900 ml Balance 846 ml Intake Oral 1320 ml IV Total 1426 ml Output Urine Total 1900 ml # Voids 3 Labs: Laboratory Tests Test 11/10/18 19:08 11/11/18 05:30 11/11/18 07:48 11/11/18 12:01 White Blood Count 6.4 x10^3/uL (4.0-11.0) 5.9 x10^3/uL (4.0-11.0) Red Blood Count 2.68 x10^6/uL (4.30-5.70) 2.55 x10^6/uL (4.30-5.70) Hemoglobin 8.7 g/dL (13.0-17.5) 8.4 g/dL (13.0-17.5) Hematocrit 25.8 % (39.0-53.0) 24.8 % (39.0-53.0) Mean Corpuscular Volume 96 fL (79-100) 97 fL (79-100) Mean Corpuscular Hemoglobin 33 pg (25-35) 33 pg (25-35) Mean Corpuscular Hemoglobin Concent 34 g/dL (31-37) 34 g/dL (31-37) Red Cell Distribution Width 13.7 % (11.5-14.5) 13.9 % (11.5-14.5) Platelet Count 247 x10^3/uL (140-400) 244 x10^3/uL (140-400) Neutrophils (%) (Auto) 57 % (31-73) 47 % (31-73) Lymphocytes (%) (Auto) 33 % (24-48) 41 % (24-48) Monocytes (%) (Auto) 8 % (0-9) 8 % (0-9) Eosinophils (%) (Auto) 2 % (0-3) 3 % (0-3) Basophils (%) (Auto) 0 % (0-3) 1 % (0-3) Neutrophils # (Auto) 3.6 x10^3uL (1.8-7.7) 2.8 x10^3uL (1.8-7.7) Lymphocytes # (Auto) 2.1 x10^3/uL (1.0-4.8) 2.4 x10^3/uL (1.0-4.8) Monocytes # (Auto) 0.5 x10^3/uL (0.0-1.1) 0.4 x10^3/uL (0.0-1.1) Eosinophils # (Auto) 0.1 x10^3/uL (0.0-0.7) 0.2 x10^3/uL (0.0-0.7) Basophils # (Auto) 0.0 x10^3/uL (0.0-0.2) 0.0 x10^3/uL (0.0-0.2) Sodium Level 136 mmol/L (136-145) 140 mmol/L (136-145) Potassium Level 5.3 mmol/L (3.5-5.1) 5.0 mmol/L (3.5-5.1) Chloride Level 102 mmol/L (98-107) 107 mmol/L (98-107) Carbon Dioxide Level 27 mmol/L (21-32) 29 mmol/L (21-32) Anion Gap 7 (6-14) 4 (6-14) Blood Urea Nitrogen 33 mg/dL (8-26) 33 mg/dL (8-26) Creatinine 3.0 mg/dL (0.7-1.3) 2.9 mg/dL (0.7-1.3) Estimated GFR (Cockcroft-Gault) 25.8 26.8 BUN/Creatinine Ratio 11 (6-20) Glucose Level 154 mg/dL (70-99) 116 mg/dL (70-99) Calcium Level 8.9 mg/dL (8.5-10.1) 8.6 mg/dL (8.5-10.1) Total Bilirubin 0.1 mg/dL (0.2-1.0) Aspartate Amino Transf (AST/SGOT) 12 U/L (15-37) Alanine Aminotransferase (ALT/SGPT) 15 U/L (16-63) Alkaline Phosphatase 83 U/L (46-116) Total Protein 6.8 g/dL (6.4-8.2) Albumin 3.1 g/dL (3.4-5.0) Albumin/Globulin Ratio 0.8 (1.0-1.7) Glucose (Fingerstick) 98 mg/dL (70-99) 175 mg/dL (70-99) Test 11/11/18 17:05 11/11/18 20:09 11/12/18 06:28 11/12/18 07:27 Glucose (Fingerstick) 120 mg/dL (70-99) 148 mg/dL (70-99) 104 mg/dL (70-99) Sodium Level 140 mmol/L (136-145) Potassium Level 4.9 mmol/L (3.5-5.1) Chloride Level 107 mmol/L (98-107) Carbon Dioxide Level 26 mmol/L (21-32) Anion Gap 7 (6-14) Blood Urea Nitrogen 27 mg/dL (8-26) Creatinine 2.7 mg/dL (0.7-1.3) Estimated GFR (Cockcroft-Gault) 29.1 Glucose Level 99 mg/dL (70-99) Calcium Level 8.5 mg/dL (8.5-10.1) Physical Exam: HEENT: PERRLA Neck: supple Lungs: good breath sounds CV RRR Abdomen: Distended and Tympanitic Ext: 2+ edema Neuro: alert, speech fluent ASSESSMENT: Dehydration Constipation ARF on CKD COPD NSCCa Lungs Anemia of chronic Disease PLAN: Continue IV Hydration Serial chemistries Magnesium citrate BRENDA SHIRLENE PA MD Nov 12, 2018 11:47
[2018-11-12] MEDS ORDERED: MAGNESIUM CITRATE 296 ML SOLUTION. PO PRN (12:15)
[2018-11-12 15:25] VITALS: BP 102/58
[2018-11-12 19:22] VITALS: BP 102/66
[2018-11-12] MEDS: INSULIN GLARGINE 300 UNITS/3 ML INSULN.PEN. SQ SCH (21:00)
[2018-11-12] MEDS: risperiDONE 1 MG TABLET. PO SCH (21:00)
[2018-11-12] MEDS: risperiDONE 2 MG TABLET. PO SCH (21:00)
[2018-11-12 23:21] VITALS: BP 105/69
[2018-11-13] MEDS: IPRATRPIUM/ALBUTEROL 0.5/2.5MG 3 ML NEBU. NEB SCH ×4 (04:33→20:20)
[2018-11-13] MEDS: INSULIN LISPRO 300 UNITS/3 ML INSULN.PEN. SQ SCH ×3 (07:30→17:17)
[2018-11-13] MEDS: IV NORMAL SALINE 1,000ML 1,000 ML IV SCH ×2 (08:46→22:06)
[2018-11-13] MEDS: LINAGLIPTIN 5 MG TABLET PO SCH (08:52)
[2018-11-13] MEDS: POLYETHYLENE GLYCOL 3350 17 GM PACKET. PO SCH (08:52)
[2018-11-13] MEDS: APIXABAN 5 MG TABLET. PO SCH ×2 (08:52→20:06)
[2018-11-13] MEDS: METOPROLOL SUCC 24HR ER 50 MG TAB.ER.24H. PO SCH (08:52)
[2018-11-13] MEDS: GABAPENTIN 300 MG CAPSULE. PO SCH ×3 (08:52→20:06)
[2018-11-13] MEDS: DOCUSATE SODIUM 100 MG CAPSULE PO SCH ×2 (08:52→20:06)
[2018-11-13] MEDS: MAGNESIUM OXIDE 400 MG TABLET PO SCH ×2 (08:52→20:06)
[2018-11-13 09:39] LABS: BASO % 1 % (0-3); EOS # 0.2 x10^3/uL (0.0-0.7); EOS % 4 % (0-3); HEMATOCRIT 26.3 % (39.0-53.0); HEMOGLOBIN 8.6 g/dL (13.0-17.5); LYMPH # 1.8 x10^3/uL (1.0-4.8); LYMPH % 32 % (24-48); MEAN CORPUSCULAR HEMOGLOBIN 32 pg (25-35); MEAN CORPUSCULAR HGB CONC 33 g/dL (31-37); MEAN CORPUSCULAR VOLUME 98 fL (79-100); MONO # 0.4 x10^3/uL (0.0-1.1); MONO % 8 % (0-9); NEUT # 3.2 x10^3uL (1.8-7.7); NEUT % 56 % (31-73); PLATELET COUNT 234 x10^3/uL (140-400); RED BLOOD COUNT 2.68 x10^6/uL (4.30-5.70); RED CELL DISTRIBUTION WIDTH 14.3 % (11.5-14.5); WHITE BLOOD COUNT 5.7 x10^3/uL (4.0-11.0)
[2018-11-13 09:52] LABS: ALBUMIN 2.9 g/dL (3.4-5.0); ALBUMIN/GLOBULIN RATIO 0.8 (1.0-1.7); CALCIUM 9.2 mg/dL (8.5-10.1); CREATININE 2.7 mg/dL (0.7-1.3); GFR 29.1; POTASSIUM 5.3 mmol/L (3.5-5.1); TOTAL BILIRUBIN 0.2 mg/dL (0.2-1.0); TOTAL PROTEIN 6.6 g/dL (6.4-8.2)
--- NOTE | 2018-11-13 10:44 | PDOC ---
SUBJECTIVE: Weakness Alert No new C/Os Eating well OBJECTIVE: Problems: Problems Medical Problems: (1) Qkfew-yq-ecurkep kidney injury Status: Acute (2) Anemia of chronic disease Status: Acute (3) Hyperkalemia Status: Acute (4) Rectal bleeding Status: Acute Creatinine 2.7 mg/dl Vital Signs: Vital Signs Date Time Temp Pulse Resp B/P (MAP) Pulse Ox O2 Delivery O2 Flow Rate FiO2 11/13/18 09:27 96 Nasal Cannula 2.0 11/13/18 08:52 103 105/69 11/12/18 23:21 98.1 11/12/18 19:22 14 I & O Intake and Output 11/13/18 06:59 Intake Total 1360 ml Balance 1360 ml Intake Oral 1360 ml # Voids 2 # Bowel Movements 1 Labs: Laboratory Tests Test 11/11/18 12:01 11/11/18 17:05 11/11/18 20:09 11/12/18 06:28 Glucose (Fingerstick) 175 mg/dL (70-99) 120 mg/dL (70-99) 148 mg/dL (70-99) Sodium Level 140 mmol/L (136-145) Potassium Level 4.9 mmol/L (3.5-5.1) Chloride Level 107 mmol/L (98-107) Carbon Dioxide Level 26 mmol/L (21-32) Anion Gap 7 (6-14) Blood Urea Nitrogen 27 mg/dL (8-26) Creatinine 2.7 mg/dL (0.7-1.3) Estimated GFR (Cockcroft-Gault) 29.1 Glucose Level 99 mg/dL (70-99) Calcium Level 8.5 mg/dL (8.5-10.1) Thyroid Stimulating Hormone (TSH) 6.903 uIU/mL (0.358-3.740) Test 11/12/18 07:27 11/12/18 11:50 11/12/18 16:50 11/12/18 20:35 Glucose (Fingerstick) 104 mg/dL (70-99) 149 mg/dL (70-99) 125 mg/dL (70-99) 173 mg/dL (70-99) Test 11/13/18 09:15 White Blood Count 5.7 x10^3/uL (4.0-11.0) Red Blood Count 2.68 x10^6/uL (4.30-5.70) Hemoglobin 8.6 g/dL (13.0-17.5) Hematocrit 26.3 % (39.0-53.0) Mean Corpuscular Volume 98 fL (79-100) Mean Corpuscular Hemoglobin 32 pg (25-35) Mean Corpuscular Hemoglobin Concent 33 g/dL (31-37) Red Cell Distribution Width 14.3 % (11.5-14.5) Platelet Count 234 x10^3/uL (140-400) Neutrophils (%) (Auto) 56 % (31-73) Lymphocytes (%) (Auto) 32 % (24-48) Monocytes (%) (Auto) 8 % (0-9) Eosinophils (%) (Auto) 4 % (0-3) Basophils (%) (Auto) 1 % (0-3) Neutrophils # (Auto) 3.2 x10^3uL (1.8-7.7) Lymphocytes # (Auto) 1.8 x10^3/uL (1.0-4.8) Monocytes # (Auto) 0.4 x10^3/uL (0.0-1.1) Eosinophils # (Auto) 0.2 x10^3/uL (0.0-0.7) Basophils # (Auto) 0.0 x10^3/uL (0.0-0.2) Sodium Level 142 mmol/L (136-145) Potassium Level 5.3 mmol/L (3.5-5.1) Chloride Level 107 mmol/L (98-107) Carbon Dioxide Level 29 mmol/L (21-32) Anion Gap 6 (6-14) Blood Urea Nitrogen 26 mg/dL (8-26) Creatinine 2.7 mg/dL (0.7-1.3) Estimated GFR (Cockcroft-Gault) 29.1 BUN/Creatinine Ratio 10 (6-20) Glucose Level 162 mg/dL (70-99) Calcium Level 9.2 mg/dL (8.5-10.1) Total Bilirubin 0.2 mg/dL (0.2-1.0) Aspartate Amino Transf (AST/SGOT) 14 U/L (15-37) Alanine Aminotransferase (ALT/SGPT) 16 U/L (16-63) Alkaline Phosphatase 77 U/L (46-116) Total Protein 6.6 g/dL (6.4-8.2) Albumin 2.9 g/dL (3.4-5.0) Albumin/Globulin Ratio 0.8 (1.0-1.7) Physical Exam: HEENT: PERRLA Neck supple Lungs; Clear CV RRR Abd: soft Ext; Trace edema Neuro: alert, intact ASSESSMENT: Dehydration BREE on CRF NSCCa lungs COPD, oxygen dependent PLAN: IV hydration Diuretics held serial chems BRENDA DC planning SHIRLENE PA MD Nov 13, 2018 10:44
[2018-11-13 11:50] VITALS: BP 129/81
[2018-11-13 15:56] VITALS: BP 110/68
[2018-11-13 19:20] VITALS: BP 120/78
[2018-11-13] MEDS: risperiDONE 2 MG TABLET. PO SCH (20:05)
[2018-11-13] MEDS: CARISOPRODOL 350 MG TABLET PO PRN (20:06)
[2018-11-13] MEDS: risperiDONE 1 MG TABLET. PO SCH (20:06)
[2018-11-13] MEDS: INSULIN GLARGINE 300 UNITS/3 ML INSULN.PEN. SQ SCH (20:12)
[2018-11-13 22:25] VITALS: BP 117/71
[2018-11-14 05:30] VITALS: BP 112/75
[2018-11-14] MEDS: IPRATRPIUM/ALBUTEROL 0.5/2.5MG 3 ML NEBU. NEB SCH ×4 (05:36→20:02)
[2018-11-14 06:39] LABS: BASO % 1 % (0-3); EOS # 0.2 x10^3/uL (0.0-0.7); EOS % 4 % (0-3); HEMATOCRIT 24.8 % (39.0-53.0); HEMOGLOBIN 8.4 g/dL (13.0-17.5); LYMPH # 2.2 x10^3/uL (1.0-4.8); LYMPH % 39 % (24-48); MEAN CORPUSCULAR HEMOGLOBIN 33 pg (25-35); MEAN CORPUSCULAR HGB CONC 34 g/dL (31-37); MEAN CORPUSCULAR VOLUME 98 fL (79-100); MONO # 0.4 x10^3/uL (0.0-1.1); MONO % 7 % (0-9); NEUT # 2.8 x10^3uL (1.8-7.7); NEUT % 50 % (31-73); PLATELET COUNT 236 x10^3/uL (140-400); RED BLOOD COUNT 2.53 x10^6/uL (4.30-5.70); RED CELL DISTRIBUTION WIDTH 14.3 % (11.5-14.5); WHITE BLOOD COUNT 5.7 x10^3/uL (4.0-11.0)
[2018-11-14 06:53] LABS: ALBUMIN/GLOBULIN RATIO 0.8 (1.0-1.7); CALCIUM 9.1 mg/dL (8.5-10.1); CREATININE 2.7 mg/dL (0.7-1.3); GFR 29.1; POTASSIUM 5.4 mmol/L (3.5-5.1); TOTAL BILIRUBIN 0.2 mg/dL (0.2-1.0); TOTAL PROTEIN 6.6 g/dL (6.4-8.2)
[2018-11-14] MEDS: INSULIN LISPRO 300 UNITS/3 ML INSULN.PEN. SQ SCH ×3 (07:30→17:06)
[2018-11-14] MEDS: MAGNESIUM OXIDE 400 MG TABLET PO SCH ×2 (09:00→20:56)
[2018-11-14] MEDS: GABAPENTIN 300 MG CAPSULE. PO SCH ×3 (09:00→20:55)
[2018-11-14] MEDS: LINAGLIPTIN 5 MG TABLET PO SCH (09:00)
[2018-11-14] MEDS: APIXABAN 5 MG TABLET. PO SCH ×2 (09:00→20:56)
[2018-11-14] MEDS: METOPROLOL SUCC 24HR ER 50 MG TAB.ER.24H. PO SCH (09:00)
[2018-11-14] MEDS: DOCUSATE SODIUM 100 MG CAPSULE PO SCH ×2 (09:00→20:56)
[2018-11-14] MEDS: POLYETHYLENE GLYCOL 3350 17 GM PACKET. PO SCH (09:00)
[2018-11-14] MEDS: CARISOPRODOL 350 MG TABLET PO PRN (09:04)
[2018-11-14] MEDS: IV NORMAL SALINE 1,000ML 1,000 ML IV SCH (11:26)
--- NOTE | 2018-11-14 11:33 | PDOC ---
SUBJECTIVE: Alert, No new C/Os Had good bowel movement OBJECTIVE: Problems: Problems Medical Problems: (1) Rezhf-xb-ncmopqk kidney injury Status: Acute (2) Anemia of chronic disease Status: Acute (3) Hyperkalemia Status: Acute (4) Rectal bleeding Status: Acute Vital Signs: Vital Signs Date Time Temp Pulse Resp B/P (MAP) Pulse Ox O2 Delivery O2 Flow Rate FiO2 11/14/18 09:20 97 Nasal Cannula 2.0 11/14/18 09:00 79 112/75 11/14/18 05:30 97.8 20 I & O Intake and Output 11/14/18 07:00 Intake Total 1600 ml Output Total 1 ml Balance 1599 ml Intake Oral 1600 ml Stool Total 1 ml # Voids 4 Labs: Laboratory Tests Test 11/12/18 11:50 11/12/18 16:50 11/12/18 20:35 11/13/18 07:55 Glucose (Fingerstick) 149 mg/dL (70-99) 125 mg/dL (70-99) 173 mg/dL (70-99) 86 mg/dL (70-99) Test 11/13/18 09:15 11/13/18 12:28 11/13/18 17:12 11/13/18 20:08 White Blood Count 5.7 x10^3/uL (4.0-11.0) Red Blood Count 2.68 x10^6/uL (4.30-5.70) Hemoglobin 8.6 g/dL (13.0-17.5) Hematocrit 26.3 % (39.0-53.0) Mean Corpuscular Volume 98 fL (79-100) Mean Corpuscular Hemoglobin 32 pg (25-35) Mean Corpuscular Hemoglobin Concent 33 g/dL (31-37) Red Cell Distribution Width 14.3 % (11.5-14.5) Platelet Count 234 x10^3/uL (140-400) Neutrophils (%) (Auto) 56 % (31-73) Lymphocytes (%) (Auto) 32 % (24-48) Monocytes (%) (Auto) 8 % (0-9) Eosinophils (%) (Auto) 4 % (0-3) Basophils (%) (Auto) 1 % (0-3) Neutrophils # (Auto) 3.2 x10^3uL (1.8-7.7) Lymphocytes # (Auto) 1.8 x10^3/uL (1.0-4.8) Monocytes # (Auto) 0.4 x10^3/uL (0.0-1.1) Eosinophils # (Auto) 0.2 x10^3/uL (0.0-0.7) Basophils # (Auto) 0.0 x10^3/uL (0.0-0.2) Sodium Level 142 mmol/L (136-145) Potassium Level 5.3 mmol/L (3.5-5.1) Chloride Level 107 mmol/L (98-107) Carbon Dioxide Level 29 mmol/L (21-32) Anion Gap 6 (6-14) Blood Urea Nitrogen 26 mg/dL (8-26) Creatinine 2.7 mg/dL (0.7-1.3) Estimated GFR (Cockcroft-Gault) 29.1 BUN/Creatinine Ratio 10 (6-20) Glucose Level 162 mg/dL (70-99) Calcium Level 9.2 mg/dL (8.5-10.1) Total Bilirubin 0.2 mg/dL (0.2-1.0) Aspartate Amino Transf (AST/SGOT) 14 U/L (15-37) Alanine Aminotransferase (ALT/SGPT) 16 U/L (16-63) Alkaline Phosphatase 77 U/L (46-116) Total Protein 6.6 g/dL (6.4-8.2) Albumin 2.9 g/dL (3.4-5.0) Albumin/Globulin Ratio 0.8 (1.0-1.7) Glucose (Fingerstick) 153 mg/dL (70-99) 121 mg/dL (70-99) 126 mg/dL (70-99) Test 11/14/18 03:53 11/14/18 06:30 11/14/18 07:42 Glucose (Fingerstick) 98 mg/dL (70-99) 140 mg/dL (70-99) White Blood Count 5.7 x10^3/uL (4.0-11.0) Red Blood Count 2.53 x10^6/uL (4.30-5.70) Hemoglobin 8.4 g/dL (13.0-17.5) Hematocrit 24.8 % (39.0-53.0) Mean Corpuscular Volume 98 fL (79-100) Mean Corpuscular Hemoglobin 33 pg (25-35) Mean Corpuscular Hemoglobin Concent 34 g/dL (31-37) Red Cell Distribution Width 14.3 % (11.5-14.5) Platelet Count 236 x10^3/uL (140-400) Neutrophils (%) (Auto) 50 % (31-73) Lymphocytes (%) (Auto) 39 % (24-48) Monocytes (%) (Auto) 7 % (0-9) Eosinophils (%) (Auto) 4 % (0-3) Basophils (%) (Auto) 1 % (0-3) Neutrophils # (Auto) 2.8 x10^3uL (1.8-7.7) Lymphocytes # (Auto) 2.2 x10^3/uL (1.0-4.8) Monocytes # (Auto) 0.4 x10^3/uL (0.0-1.1) Eosinophils # (Auto) 0.2 x10^3/uL (0.0-0.7) Basophils # (Auto) 0.0 x10^3/uL (0.0-0.2) Sodium Level 139 mmol/L (136-145) Potassium Level 5.4 mmol/L (3.5-5.1) Chloride Level 105 mmol/L (98-107) Carbon Dioxide Level 29 mmol/L (21-32) Anion Gap 5 (6-14) Blood Urea Nitrogen 28 mg/dL (8-26) Creatinine 2.7 mg/dL (0.7-1.3) Estimated GFR (Cockcroft-Gault) 29.1 BUN/Creatinine Ratio 10 (6-20) Glucose Level 159 mg/dL (70-99) Calcium Level 9.1 mg/dL (8.5-10.1) Total Bilirubin 0.2 mg/dL (0.2-1.0) Aspartate Amino Transf (AST/SGOT) 16 U/L (15-37) Alanine Aminotransferase (ALT/SGPT) 16 U/L (16-63) Alkaline Phosphatase 80 U/L (46-116) Total Protein 6.6 g/dL (6.4-8.2) Albumin 3.0 g/dL (3.4-5.0) Albumin/Globulin Ratio 0.8 (1.0-1.7) Physical Exam: HEENT: PERRLA Neck: supple Lungs clear CV: RRR Abd: soft, nontender Ext 1+ edema Neuro: alert ASSESSMENT: Dehydration CKD stage IV , close to baseline Oxygen dependent COPD NSCCa lungs BREE, improved Constipation, responded to Magnesium citrate PLAN: BRENDA Meds reviewed and simplified Tentative DC home thursday. SHIRLENE PA MD Nov 14, 2018 11:33
[2018-11-14 11:43] VITALS: BP 163/51
[2018-11-14 16:17] VITALS: BP 128/81
[2018-11-14 20:06] VITALS: BP 145/88
[2018-11-14] MEDS: risperiDONE 2 MG TABLET. PO SCH (20:56)
[2018-11-14] MEDS: INSULIN GLARGINE 300 UNITS/3 ML INSULN.PEN. SQ SCH (20:56)
[2018-11-14] MEDS: risperiDONE 1 MG TABLET. PO SCH (20:56)
[2018-11-14 23:38] VITALS: BP 142/83
[2018-11-15] MEDS: IV NORMAL SALINE 1,000ML 1,000 ML IV SCH (01:01)
[2018-11-15] MEDS: IPRATRPIUM/ALBUTEROL 0.5/2.5MG 3 ML NEBU. NEB SCH ×4 (05:42→20:05)
[2018-11-15 05:48] VITALS: BP 137/86
[2018-11-15] MEDS: DOCUSATE SODIUM 100 MG CAPSULE PO SCH ×2 (08:36→20:35)
[2018-11-15] MEDS: LINAGLIPTIN 5 MG TABLET PO SCH (08:36)
[2018-11-15] MEDS: METOPROLOL SUCC 24HR ER 50 MG TAB.ER.24H. PO SCH (08:36)
[2018-11-15] MEDS: MAGNESIUM OXIDE 400 MG TABLET PO SCH ×2 (08:36→20:35)
[2018-11-15] MEDS: APIXABAN 5 MG TABLET. PO SCH ×2 (08:36→20:35)
[2018-11-15] MEDS: ATORVASTATIN CALCIUM 20 MG TABLET PO SCH (08:36)
[2018-11-15] MEDS: GABAPENTIN 300 MG CAPSULE. PO SCH ×3 (08:36→20:36)
[2018-11-15] MEDS: POLYETHYLENE GLYCOL 3350 17 GM PACKET. PO SCH (08:41)
[2018-11-15] MEDS: INSULIN LISPRO 300 UNITS/3 ML INSULN.PEN. SQ SCH ×3 (08:41→16:30)
[2018-11-15 11:02] VITALS: BP 146/95
[2018-11-15] MEDS: SODIUM POLYSTYRENE SULFONATE 15 GM/60 ML ORAL.SUSP. PO SCH ×2 (14:16→20:57)
[2018-11-15] MEDS: LACTULOSE 20 GM/30 ML SOLUTION. PO SCH ×2 (14:17→20:36)
[2018-11-15 15:05] VITALS: BP 136/85
[2018-11-15 19:29] VITALS: BP 127/87
--- NOTE | 2018-11-15 19:58 | PN ---
DATE: 11/15/2018 SUBJECTIVE: The patient is resting slightly propped up in bed, in no apparent respiratory distress. He is awake, alert. Denied any complaint. Unfortunately, he has had multiple bowel movements and constipation has resolved. Unfortunately, his potassium is up again at 5.4. His serum creatinine has stabilized around 2.7 without much improvement despite large amount of fluid. OBJECTIVE: GENERAL: When I examined him, he looked slightly propped up in bed, in no apparent respiratory distress, slightly pale, but no jaundice, cyanosis, or thyromegaly. No jugular venous distension. No limb edema. VITAL SIGNS: Her heart rate was 92, blood pressure 146/95, temperature was 98.2, respiratory rate was 18 and oxygen saturation was 98% on 2 liters oxygen. HEAD, EYES, EARS, NOSE AND THROAT: Showed normocephalic, atraumatic. NECK: Supple. HEART: Showed normal first and second heart sounds. No gallop, rub or murmur. CHEST: Clear to auscultation. No crepitation or rhonchi. ABDOMEN: Distended, soft, nontender. No guarding or rigidity. No organomegaly. All hernial orifices intact. Bowel sounds normal. NEUROLOGIC: He was awake, alert, responding appropriately. All cranial nerves intact. He moves extremities without difficulty. His intake over the last 24 hours was 1600, no output was recorded. LABORATORY DATA: As of yesterday showed a serum sodium of 139, potassium 5.4, chloride 105, bicarbonate 29, anion gap of 5, BUN 28, creatinine 2.7, estimated GFR was 29 mL per minute, his glucose 159, calcium was 9.1. Total bilirubin, AST, ALT, alkaline phosphatase were normal. Total protein was 6.6, albumin 3. His white cell count was 5700, hemoglobin 8.4, hematocrit 24.8, MCV 98 and platelet count 236,000. ASSESSMENT: 1. Acute on chronic kidney injury. 2. Hyperkalemia. 3. Anemia of chronic kidney disease. 4. Rectal bleeding. 5. Severe constipation. PLAN: My plan is to stop the IV fluid as the patient's creatinine has not really improved any further. For his hyperkalemia, we will start him on Kayexalate 30 grams or 30 mL of lactulose, one now and one later on tonight and repeat his lab work tomorrow. If the serum potassium is less than 5, he can be discharged home. ADIEL JACKSON MD DR: MADELAINE/steven JOB#: [id number] / [id number]
[2018-11-15] MEDS: risperiDONE 1 MG TABLET. PO SCH (20:35)
[2018-11-15] MEDS: risperiDONE 2 MG TABLET. PO SCH (20:35)
[2018-11-15] MEDS: INSULIN GLARGINE 300 UNITS/3 ML INSULN.PEN. SQ SCH (20:37)
[2018-11-15] MEDS ORDERED: SODIUM POLYSTYRENE SULFONATE 15 GM/60 ML ORAL.SUSP. PO SCH (21:00)
[2018-11-15 23:23] VITALS: BP 110/71
[2018-11-16] MEDS: IPRATRPIUM/ALBUTEROL 0.5/2.5MG 3 ML NEBU. NEB SCH ×3 (05:01→15:45)
[2018-11-16 05:45] VITALS: BP 134/80
[2018-11-16 06:58] LABS: CALCIUM 8.7 mg/dL (8.5-10.1); CREATININE 2.4 mg/dL (0.7-1.3); GFR 33.4; POTASSIUM 4.4 mmol/L (3.5-5.1)
[2018-11-16] MEDS: INSULIN LISPRO 300 UNITS/3 ML INSULN.PEN. SQ SCH ×2 (08:17→12:10)
[2018-11-16] MEDS: LINAGLIPTIN 5 MG TABLET PO SCH (08:18)
[2018-11-16] MEDS: DOCUSATE SODIUM 100 MG CAPSULE PO SCH (08:18)
[2018-11-16] MEDS: MAGNESIUM OXIDE 400 MG TABLET PO SCH (08:18)
[2018-11-16] MEDS: METOPROLOL SUCC 24HR ER 50 MG TAB.ER.24H. PO SCH (08:18)
[2018-11-16] MEDS: GABAPENTIN 300 MG CAPSULE. PO SCH ×2 (08:18→14:28)
[2018-11-16] MEDS: APIXABAN 5 MG TABLET. PO SCH (08:20)
[2018-11-16] MEDS: POLYETHYLENE GLYCOL 3350 17 GM PACKET. PO SCH (08:20)
[2018-11-16 11:01] VITALS: BP 136/78
[2018-11-16 15:02] VITALS: BP 129/78
--- NOTE | 2018-11-16 20:17 | DS ---
DATE OF DISCHARGE: 11/16/2018 HOSPITAL COURSE: The patient is a 63-year-old -[place] male patient who was admitted originally with a complaint of rectal bleeding. He was found to be constipated. In the Emergency Room, he was found also to have acute kidney injury. His creatinine has risen to 3 mg with a baseline creatinine is 1.5. He was also found to be hyperkalemic. He was started him on IV fluid and his creatinine has steadily improved from 3 down to 2.4 and his potassium came down from 5.4 to 4.4 and a decision was made to discharge him home to follow with his primary care physician as well as his oncologist and field care coordinator. PHYSICAL EXAMINATION: GENERAL: When I saw him this afternoon, he was resting slightly propped up in bed, in no apparent respiratory distress, slightly pale. No jaundice, cyanosis, or thyromegaly. No jugular venous distension. No limb edema. VITAL SIGNS: His heart rate was 98, blood pressure 136/78, temperature was 98.1, respiratory rate was 20 and oxygen saturation was 95% on 2 liters of oxygen. HEAD, EYES, EARS, NOSE AND THROAT: Normocephalic, atraumatic. NECK: Supple. HEART: Showed normal first and second heart sounds. No gallop, rub or murmur. CHEST: Clear to auscultation. No crepitation or rhonchi. ABDOMEN: Distended, soft, nontender. No guarding or rigidity. No organomegaly. All hernial orifices intact. Bowel sounds normal. NEUROLOGIC: He was awake, alert, responding appropriately. All cranial nerves intact. He moves extremities without difficulty, ambulates without assistance or assistive devices. His intake over the last 24 hours was 1866, no output was recorded. LABORATORY DATA: His lab work this morning showed a white cell count 5700, hemoglobin 8.4, hematocrit 24, MCV 98 and platelet count of 236,000. His chemistry this morning showed a serum sodium 139, potassium 4.4, chloride 104, bicarbonate 30, anion gap of 5, BUN 18, creatinine 2.4, estimated GFR was 33 mL per minute. His glucose was 96 and calcium was 8.7. DISCHARGE MEDICATIONS: He was discharged home to continue on following medications: Apixaban 5 mg twice a day, Soma 350 mg 3 times a day, gabapentin 600 mg 3 times a day. He is on Lantus. He is on NovoLog insulin 12 units before meals, Tresiba 15 units at bedtime, magnesium oxide 400 mg twice a day, metoprolol succinate 50 mg once a day, nitroglycerin 0.4 mg sublingually every 5 minutes x 3, Protonix 40 mg daily, risperidone 1 mg at bedtime, Crestor 5 mg at bedtime on Thursday, Thursday, Thursday, sitagliptin for Januvia 100 mg once a day and tiotropium bromide for Spiriva HandiHaler 2 puffs daily. FINAL DISCHARGE DIAGNOSES: 1. Acute on chronic kidney failure, improved. His creatinine is down back to 2.4. 2. Hyperkalemia, resolved. His potassium is down to 4.4. 3. Anemia of chronic kidney disease. 4. Rectal bleeding. 5. Severe constipation. 6. Small cell carcinoma of the lung, currently on chemotherapy. ADIEL JACKSON MD DR: MADELAINE/steven JOB#: [id number] / [id number]
== END 2018-11-16 17:25 | disposition home health service (06) | DRG 377 ==
LOC: ER 17:32 → 1 SOUTH 20:13
PROVIDERS: ADMIT Internal Medicine; ATTEND Internal Medicine
DX: K62.5 Hemorrhage of anus and rectum (principal); N17.0 Acute kidney failure with tubular necrosis; C34.90 Malignant neoplasm of unspecified part of unspecified bronchus or lung; N18.4 Chronic kidney disease, stage 4 (severe); E87.5 Hyperkalemia; E78.5 Hyperlipidemia, unspecified; E11.22 Type 2 diabetes mellitus with diabetic chronic kidney disease; E86.0 Dehydration; M19.90 Unspecified osteoarthritis, unspecified site; E78.00 Pure hypercholesterolemia, unspecified; F20.9 Schizophrenia, unspecified; K59.00 Constipation, unspecified; J44.9 Chronic obstructive pulmonary disease, unspecified; Z88.1 Allergy status to other antibiotic agents; D63.1 Anemia in chronic kidney disease; Z88.0 Allergy status to penicillin; I12.9 Hypertensive chronic kidney disease with stage 1 through stage 4 chronic kidney disease, or unspecified chronic kidney disease; Z99.81 Dependence on supplemental oxygen; E11.42 Type 2 diabetes mellitus with diabetic polyneuropathy; N40.0 Benign prostatic hyperplasia without lower urinary tract symptoms; Z86.711 Personal history of pulmonary embolism; Z83.3 Family history of diabetes mellitus; Z80.42 Family history of malignant neoplasm of prostate; Z80.1 Family history of malignant neoplasm of trachea, bronchus and lung; Z87.891 Personal history of nicotine dependence
CPT/HCPCS: 36415; 74021; 74176; 80048; 80053; 82947; 84443; 85025; 93005; 94640; 94760; 96360; J1815; J7620; 99285-25; J7030

== ENCOUNTER → 2018-12-06 | Outpatient (CLI) | payer MEDICAID, OTHER ==
[2018-11-16 15:02] VITALS: BP 129/78
[~2018-12-06] MED LIST changes: +APIX5TAB3 PO; +INSU100I17 SQ; +INSU200I4 SQ; +MAGN400T3 PO; +METO50TA29 PO; +RISP1TAB43 PO; +RISP4TAB2 PO; +SULF1TAB23 PO
[2018-12-06 11:07] LABS: ALBUMIN 3.3 g/dL (3.4-5.0); CALCIUM 9.6 mg/dL (8.5-10.1); CREATININE 2.6 mg/dL (0.7-1.3); GFR 30.4; PHOSPHORUS 4.3 mg/dL (2.6-4.7); POTASSIUM 4.4 mmol/L (3.5-5.1); URIC ACID 7.4 mg/dL (3.5-7.2)
[2018-12-06 11:10] LABS: HEMATOCRIT 30.5 % (39.0-53.0); HEMOGLOBIN 10.2 g/dL (13.0-17.5)
[2018-12-06 21:48] LABS: CREATININE,RANDOM URINE 62.5 mg/dL (Not Establ.)
[2018-12-06 22:06] LABS: MICRO CREAT RATIO <5.1 mg/g creat (0.0-30.0); MICROALB RD UR <3.0 ug/mL (Not Estab.)
[2018-12-07 18:06] LABS: CALCIUM PTH 9.2 mg/dL (8.6-10.2); PTH INTACT 115 pg/mL (15-65)
== END | disposition home or self-care (01) ==
LOC: LAB 08:28
PROVIDERS: ATTEND Nurse Practitioner Adult Health
DX: N17.9 Acute kidney failure, unspecified (principal); E11.22 Type 2 diabetes mellitus with diabetic chronic kidney disease; I12.9 Hypertensive chronic kidney disease with stage 1 through stage 4 chronic kidney disease, or unspecified chronic kidney disease; N18.3 Chronic kidney disease, stage 3 (moderate); Z68.41 Body mass index [BMI] 40.0-44.9, adult
CPT/HCPCS: 36415; 80069; 82043; 82570; 82728; 83540; 83550; 83970; 84156; 84550; 85014; 85018

== ENCOUNTER → 2019-02-04 | Outpatient (CLI) | payer OTHER, MEDICAID ==
[~2019-02-04] MED LIST changes: -EZET10TA18 PO; +EZET10TA20 PO
[2019-02-04 06:49] LABS: BASO % 0 % (0-3); EOS # 0.1 x10^3/uL (0.0-0.7); EOS % 2 % (0-3); HEMATOCRIT 29.7 % (39.0-53.0); HEMOGLOBIN 9.8 g/dL (13.0-17.5); LYMPH # 2.4 x10^3/uL (1.0-4.8); LYMPH % 40 % (24-48); MEAN CORPUSCULAR HEMOGLOBIN 31 pg (25-35); MEAN CORPUSCULAR HGB CONC 33 g/dL (31-37); MEAN CORPUSCULAR VOLUME 95 fL (79-100); MONO # 0.4 x10^3/uL (0.0-1.1); MONO % 7 % (0-9); NEUT % 51 % (31-73); PLATELET COUNT 291 x10^3/uL (140-400); RED BLOOD COUNT 3.12 x10^6/uL (4.30-5.70); RED CELL DISTRIBUTION WIDTH 13.6 % (11.5-14.5); WHITE BLOOD COUNT 5.9 x10^3/uL (4.0-11.0)
[2019-02-04 07:00] LABS: ALBUMIN 3.3 g/dL (3.4-5.0); CREATININE 2.5 mg/dL (0.7-1.3); GFR 31.8; PHOSPHORUS 3.4 mg/dL (2.6-4.7); POTASSIUM 4.2 mmol/L (3.5-5.1)
[2019-02-04 07:05] LABS: BACTERIA,URINE 0 /HPF (0-FEW); BILIRUBIN,URINE NEG (NEG); CLARITY,URINE CLEAR; COLOR,URINE STRAW; GLUCOSE,URINE NEG (NEG); NITRITE,URINE NEG (NEG); RBC,URINE 0 /HPF (0-2); SQUAMOUS EPITHELIAL CELL,UR OCC /LPF; UROBILINOGEN,URINE 0.2 mg/dL (0.2 mg/dL); WBC,URINE RARE /HPF (0-4)
--- NOTE | 2019-02-04 11:19 | RAD ---
RENAL COMPLETE BILATERAL: 02/04/2019 10:00 AM Indication: 63 years old Male. Chronic kidney disease. Comparison: CT abdomen/pelvis 11/11/2018 FINDINGS: Sonographic evaluation of the kidneys was performed utilizing grayscale and color Doppler. Right kidney: Size: 10.0 x 4.5 x 3.8 cm. Collecting System: No hydronephrosis. No renal calculi detected. Parenchyma: Normal echotexture and morphology. No focal contour deforming renal mass. Left kidney: Size: 10.8 x 4.0 x 4.1 cm. Collecting System: No hydronephrosis. No renal calculi detected. Parenchyma: Normal echotexture and morphology. No focal contour deforming renal mass. Urinary bladder: Within normal limits with no significant post void residual. Visualized liver: In the right hepatic lobe there is a 3.3 x 3.8 x 4.2 cm hypoechoic mass with internal vascularity. IMPRESSION: 1. No evidence for obstructive uropathy. 2. No significant post void residual within the urinary bladder. 3. Hypoechoic mass within the right hepatic lobe measuring 3.3 x 3.8 x 4.2 cm. Findings are concerning for metastatic disease provided the history of lung malignancy. Electronically signed by: Juliette Noguera MD (02/04/2019 11:16 AM) [id number]
[2019-02-05 01:08] LABS: CALCIUM PTH 9.4 mg/dL (8.6-10.2); CREATININE PTH 2.23 mg/dL (0.76-1.27); PTH INTACT 185 pg/mL (15-65)
== END | disposition home or self-care (01) ==
LOC: LAB 05:27
PROVIDERS: ATTEND Nurse Practitioner Adult Health
DX: N17.9 Acute kidney failure, unspecified (principal); I12.9 Hypertensive chronic kidney disease with stage 1 through stage 4 chronic kidney disease, or unspecified chronic kidney disease; E11.22 Type 2 diabetes mellitus with diabetic chronic kidney disease; N18.3 Chronic kidney disease, stage 3 (moderate); R16.0 Hepatomegaly, not elsewhere classified; Z68.41 Body mass index [BMI] 40.0-44.9, adult; Z85.118 Personal history of other malignant neoplasm of bronchus and lung
CPT/HCPCS: 36415; 76770; 80069; 81001; 82306; 82728; 83540; 83550; 83970; 85025

== ENCOUNTER → 2019-03-04 | Outpatient (CLI) | payer OTHER, MEDICAID ==
[~2019-03-04] MED LIST changes: +METF500T11 PO; -METF500T9 PO
[2019-03-04 08:19] LABS: HEMATOCRIT 29.3 % (39.0-53.0); HEMOGLOBIN 9.6 g/dL (13.0-17.5)
[2019-03-04 08:32] LABS: ALBUMIN 3.2 g/dL (3.4-5.0); CALCIUM 8.9 mg/dL (8.5-10.1); CREATININE 2.6 mg/dL (0.7-1.3); GFR 30.4; PHOSPHORUS 3.6 mg/dL (2.6-4.7); POTASSIUM 4.5 mmol/L (3.5-5.1)
== END | disposition home or self-care (01) ==
LOC: LAB 07:42
PROVIDERS: ATTEND Nurse Practitioner Adult Health
DX: N17.9 Acute kidney failure, unspecified (principal); I12.9 Hypertensive chronic kidney disease with stage 1 through stage 4 chronic kidney disease, or unspecified chronic kidney disease; E11.22 Type 2 diabetes mellitus with diabetic chronic kidney disease; N18.3 Chronic kidney disease, stage 3 (moderate); Z79.4 Long term (current) use of insulin; Z68.38 Body mass index [BMI] 38.0-38.9, adult
CPT/HCPCS: 36415; 80069; 85014; 85018

== ENCOUNTER → 2019-03-25 | Outpatient (CLI) | payer OTHER, MEDICAID ==
[~2019-03-25] MED LIST changes: -MAGN400T3 PO; +MAGN400T5 PO
[2019-03-25 09:41] LABS: ALBUMIN 3.4 g/dL (3.4-5.0); ALBUMIN/GLOBULIN RATIO 0.8 (1.0-1.7); CALCIUM 9.3 mg/dL (8.5-10.1); CREATININE 2.5 mg/dL (0.7-1.3); GFR 31.8; POTASSIUM 4.3 mmol/L (3.5-5.1); TOTAL BILIRUBIN 0.2 mg/dL (0.2-1.0); TOTAL PROTEIN 7.8 g/dL (6.4-8.2)
== END | disposition home or self-care (01) ==
LOC: LAB 07:35
PROVIDERS: ATTEND Nurse Practitioner
DX: E78.5 Hyperlipidemia, unspecified (principal)
CPT/HCPCS: 36415; 80053; 80061

== ENCOUNTER → 2019-04-01 | Outpatient (CLI) | payer OTHER, MEDICAID ==
[2019-04-01 09:06] LABS: HEMATOCRIT 28.9 % (39.0-53.0); HEMOGLOBIN 9.6 g/dL (13.0-17.5)
[2019-04-01 09:17] LABS: ALBUMIN 3.2 g/dL (3.4-5.0); CALCIUM 8.8 mg/dL (8.5-10.1); CREATININE 2.5 mg/dL (0.7-1.3); GFR 31.8; PHOSPHORUS 3.9 mg/dL (2.6-4.7); POTASSIUM 4.2 mmol/L (3.5-5.1)
[2019-04-02 00:11] LABS: CALCIUM PTH 9.3 mg/dL (8.6-10.2); CREATININE PTH 2.02 mg/dL (0.76-1.27); PTH INTACT 153 pg/mL (15-65)
== END | disposition home or self-care (01) ==
LOC: LAB 07:51
PROVIDERS: ATTEND Nurse Practitioner Adult Health
DX: N17.9 Acute kidney failure, unspecified (principal); I12.9 Hypertensive chronic kidney disease with stage 1 through stage 4 chronic kidney disease, or unspecified chronic kidney disease; E11.22 Type 2 diabetes mellitus with diabetic chronic kidney disease; N18.3 Chronic kidney disease, stage 3 (moderate); Z79.4 Long term (current) use of insulin; Z68.38 Body mass index [BMI] 38.0-38.9, adult
CPT/HCPCS: 36415; 80069; 82728; 83540; 83550; 83970; 85014; 85018

== ENCOUNTER → 2019-07-26 | Outpatient (CLI) | payer MEDICARE, MEDICAID ==
[~2019-07-26] MED LIST changes: -BUPR300T4 PO; +BUPR300T92 PO; -SUCR1ORA11 PO; +SUCR1ORA14 PO
[2019-07-26 09:06] LABS: HEMATOCRIT 30.6 % (39.0-53.0)
[2019-07-26 09:13] LABS: ALBUMIN 3.1 g/dL (3.4-5.0); CALCIUM 8.6 mg/dL (8.5-10.1); CREATININE 2.1 mg/dL (0.7-1.3); GFR 38.8; MAGNESIUM 1.5 mg/dL (1.8-2.4); PHOSPHORUS 3.6 mg/dL (2.6-4.7); POTASSIUM 4.5 mmol/L (3.5-5.1)
[2019-07-26 20:07] LABS: CALCIUM PTH 9.2 mg/dL (8.6-10.2); CREATININE PTH 2.08 mg/dL (0.76-1.27); PTH INTACT 144 pg/mL (15-65)
== END | disposition home or self-care (01) ==
LOC: LAB 07:52
PROVIDERS: ATTEND Nurse Practitioner Adult Health
DX: N17.9 Acute kidney failure, unspecified (principal); E11.22 Type 2 diabetes mellitus with diabetic chronic kidney disease; I12.9 Hypertensive chronic kidney disease with stage 1 through stage 4 chronic kidney disease, or unspecified chronic kidney disease; N18.3 Chronic kidney disease, stage 3 (moderate); D64.9 Anemia, unspecified; Z68.37 Body mass index [BMI] 37.0-37.9, adult; Z79.4 Long term (current) use of insulin
CPT/HCPCS: 36415; 80069; 83735; 83970; 85014; 85018

== ENCOUNTER 2019-08-23 09:30 | Observation (INO) | payer MEDICARE, MEDICAID ==
[~2019-08-23] VITALS: Ht 170.2 cm; Wt 106.9 kg
[2019-08-23] MEDS ORDERED: IV NORMAL SALINE 1,000ML 1,000 ML IV SCH (10:25)
--- NOTE | 2019-08-23 10:29 | PHYS DOC ---
Past History Past Medical History: Arthritis, Cancer, Diabetes, High Cholesterol, Hypertension, Schizophrenia, Other Past Surgical History: Other Additional Past Surgical Histo: had extensive local I&D of abscesses underneath his arms Smoking: Non-smoker Alcohol Use: None Drug Use: None Adult General Chief Complaint Chief Complaint: FEVER HPI HPI Patient is a 64-year-old male who presents with complaint of body aches and chills as well as reported fever at home. Patient states that he is also had a cough that has been productive of yellow sputum. He denies any chest pain but does indicate that he has some shortness of breath with exertion. He rates the body aches as moderate. Patient states that nothing is improving symptoms. He states his symptoms been present for the last few days.[] Review of Systems Review of Systems Constitutional: Positive fever and chills [] Respiratory: Positive cough and exertional shortness of breath [] Cardiovascular: No additional information not addressed in HPI [] GI: Denies abdominal pain, nausea, vomiting or diarrhea [] Integument: Denies rash or skin lesions [] Neurologic: Denies headache, focal weakness or sensory changes [] All other systems were reviewed and found to be within normal limits, except as documented in this note. Allergies Allergies Allergies Coded Allergies Type Severity Reaction Last Updated Verified amoxicillin Allergy Severe Rash 01/25/18 Yes ampicillin Allergy Severe Rash 01/25/18 Yes Penicillins Allergy Intermediate Rash 01/25/18 Yes azithromycin Allergy Intermediate 03/24/18 Yes clindamycin Allergy Intermediate 01/25/18 Yes ibuprofen Allergy Intermediate 11/11/18 Yes Physical Exam Physical Exam Constitutional: Well developed, well nourished, no acute distress, non-toxic appearance. [] HENT: Normocephalic, atraumatic, bilateral external ears normal, oropharynx moist, no oral exudates, nose normal. [] Eyes: PERRLA, EOMI, conjunctiva normal, no discharge. [] Neck: Normal range of motion, no tenderness, supple, no stridor. [] Cardiovascular: Regular rate and rhythm[] Lungs & Thorax: Bilateral breath sounds clear to auscultation [] Abdomen: Bowel sounds normal, soft, no tenderness. [] Skin: Warm, dry, no erythema, no rash. [] Extremities: No tenderness, no cyanosis, no clubbing, ROM intact. [] Neurologic: Awake and alert, no focal deficits noted. [] EKG EKG [] Radiology/Procedures Radiology/Procedures [] Impressions: PROCEDURE: PORTABLE CHEST 1V Portable AP chest. HISTORY: Fever AP view was taken of the chest. There is a right Port-A-Cath without change. There is no pleural effusion. Heart is normal in size. There is mild linear density possibly atelectasis in the right upper lobe. There is linear atelectasis at the left costophrenic angle. No other acute infiltrates are noted. IMPRESSION: 1. Mild linear atelectasis right upper lobe and left lung base. 2. No other confluent infiltrates. Electronically signed by: Ace Garnett MD (08/23/2019 10:50 AM) [id number] Course & Med Decision Making Course & Med Decision Making Pertinent Labs and Imaging studies reviewed. (See chart for details) [] Dragon Disclaimer Dragon Disclaimer This electronic medical record was generated, in whole or in part, using a voice recognition dictation system. Departure Departure: Impression: Primary Impression: Generalized weakness Additional Impression: Hypotension Disposition: 09 ADMITTED INPATIENT Admitting Physician: Hilton Foster Condition: IMPROVED Referrals: TERRY CULLEN (PCP) Problem Qualifiers Additional Impression: Hypotension Hypotension type: unspecified hypotension type Qualified Codes: I95.9 - Hypotension, unspecified MARGARET HU Jr. DO Aug 23, 2019 10:29
--- NOTE | 2019-08-23 10:54 | RAD ---
Portable AP chest. HISTORY: Fever AP view was taken of the chest. There is a right Port-A-Cath without change. There is no pleural effusion. Heart is normal in size. There is mild linear density possibly atelectasis in the right upper lobe. There is linear atelectasis at the left costophrenic angle. No other acute infiltrates are noted. IMPRESSION: 1. Mild linear atelectasis right upper lobe and left lung base. 2. No other confluent infiltrates. Electronically signed by: Ace Garnett MD (08/23/2019 10:50 AM) [id number]
[2019-08-23 11:32] LABS: BASO % 0 % (0-3); EOS % 0 % (0-3); HEMATOCRIT 30.1 % (39.0-53.0); HEMOGLOBIN 9.9 g/dL (13.0-17.5); LYMPH # 2.3 x10^3/uL (1.0-4.8); LYMPH % 20 % (24-48); MEAN CORPUSCULAR HEMOGLOBIN 31 pg (25-35); MEAN CORPUSCULAR HGB CONC 33 g/dL (31-37); MEAN CORPUSCULAR VOLUME 95 fL (79-100); MONO # 1.4 x10^3/uL (0.0-1.1); MONO % 12 % (0-9); NEUT # 7.8 x10^3uL (1.8-7.7); NEUT % 67 % (31-73); PLATELET COUNT 289 x10^3/uL (140-400); RED BLOOD COUNT 3.19 x10^6/uL (4.30-5.70); WHITE BLOOD COUNT 11.6 x10^3/uL (4.0-11.0)
[2019-08-23 11:45] LABS: CALCIUM 8.8 mg/dL (8.5-10.1); CREATININE 2.2 mg/dL (0.7-1.3); GFR 36.8; POTASSIUM 4.1 mmol/L (3.5-5.1)
[2019-08-23 11:51] LABS: ALBUMIN/GLOBULIN RATIO 0.7 (1.0-1.7); TOTAL BILIRUBIN 0.3 mg/dL (0.2-1.0); TOTAL PROTEIN 7.5 g/dL (6.4-8.2)
[2019-08-23 11:52] LABS: INFLUENZA A PATIENT NEGATIVE (NEGATIVE); INFLUENZA B PATIENT NEGATIVE (NEGATIVE)
[2019-08-23 13:13] LABS: BACTERIA,URINE 0 /HPF (0-FEW); BILIRUBIN,URINE NEG (NEG); CLARITY,URINE CLEAR; COLOR,URINE YELLOW; GLUCOSE,URINE NEG (NEG); HYALINE CASTS, URINE OCC /HPF; NITRITE,URINE NEG (NEG); RBC,URINE RARE /HPF (0-2); SQUAMOUS EPITHELIAL CELL,UR FEW /LPF; UROBILINOGEN,URINE 0.2 mg/dL (0.2 mg/dL)
--- NOTE | 2019-08-23 15:59 | HP ---
ADMIT DATE: 08/23/2019 ATTENDING PHYSICIAN: Dr. Pa. CHIEF COMPLAINT: Weakness. HISTORY OF PRESENT ILLNESS: The patient is a 64-year-old gentleman with chronic medical issues. He presented to the ED with a several day history of gradual weakness. He was hypotensive, blood pressure 80s and 90s systolic. He had diabetes. He also has diabetic autonomic disease. Clinically, he is on the dry side. He was given a couple liters of fluid. Blood pressure still remains marginal. His admission BP was 116/66, then 81/53, repeat was up to 114/70 by the time I saw him. Heart rates fluctuated between 80 and 90 per minute. It was regular. He has oxygen continuously for COPD that is at 2 liters per nasal cannula. The patient also has diabetic autonomic disease. He is admitted then with symptomatic hypotension. His influenza and other screens in the ED were fairly unremarkable. Chest x-ray was clear. White count was normal. PAST MEDICAL HISTORY: Significant for longstanding schizoaffective disorder, resulting in disability. He has been on disability since 1982. He lives alone. He has also dysphagia; type 2 diabetes, insulin dependent; history of GI bleed; hypoglycemia; community-acquired pneumonia; autonomic neuropathy and generalized weakness. CURRENT MEDICINES: Include Eliquis 5 mg b.i.d., Soma, Neurontin, insulin, short acting NovoLog and long acting, magnesium oxide, metoprolol, nitroglycerin, Protonix, Risperdal, Crestor, Januvia and Spiriva. ALLERGIES: He has allergies to PENICILLIN, AMOXICILLIN, AMPICILLIN, ZITHROMAX, CLINDAMYCIN and IBUPROFEN. Exact etiology and reaction is unclear. SOCIAL HISTORY: He was a smoker up to 2016. He denies any significant alcohol use. FAMILY HISTORY: Mom at age 72 of heart disease. Father at age 62 of lung cancer. REVIEW OF SYSTEMS: Significant for generalized weakness. He has not had any travel. He denied any cough, congestion, fevers or chills. Appetite has been fair. He ate some solid foods earlier today. No nausea, vomiting or diarrhea. All other systems reviewed and determined to be negative. PHYSICAL EXAMINATION: GENERAL: When I saw him, this is a very pleasant, middle-aged gentleman. INITIAL VITAL SIGNS: As noted blood pressure 114/70. It had been 81 mmHg earlier. He was afebrile. HEENT: Head is without trauma. Pupils are reactive. Sclerae nonicteric. Oropharynx clear. Mucous membranes indeed dry. NECK: Supple, no bruits identified. LUNGS: Otherwise clear. CARDIOVASCULAR: Showed regular heart tones. No obvious gallops. Peripheral pulses are palpable and full. ABDOMEN: Obese, protuberant. No organomegaly. No guarding, rebound tenderness. EXTREMITIES: Showed no cyanosis or edema. NEUROLOGIC: Focally intact. Speech is fluent. His thought process was congruent. He had no focal deficits. PERTINENT LABORATORY STUDIES: White count 11,600, hemoglobin 9.9 g/dL. Chemistry panel showed a creatinine of 2.2, but this is close to baseline. Electrolytes within normal range. Nonfasting blood sugar 136, repeat was 140 mg/dL. ASSESSMENT: This 64-year-old gentleman has; 1. Hypotension that is symptomatic. He is dehydrated. 2. Chronic kidney disease stage 3. 3. Longstanding schizoaffective disorder. 4. Insulin-dependent diabetes mellitus. 5. Generalized debilitation. 6. History of gastroesophageal reflux disease. 7. Chronic obstructive pulmonary disease, oxygen dependent. He is on oxygen continuously. PLAN: 1. Admit to the inpatient unit. 2. Continue IV saline until blood pressure improves. 3. Diabetic diet as tolerated. 4. We will hold some of his oral meds including his beta blockers and other meds which may lower his blood pressure. 5. Continue insulin regimen as prescribed. 6. Serial chemistries and CBCs. SHIRLENE PA MD DR: YANIRA/steven JOB#: [id number] / [id number] ADIEL Ling MD [facility]
--- NOTE | 2019-08-23 17:10 | NUR ---
The patient, MARCELO ROA, 64 y/o, M admitted by SHIRLENE FOSTER MD, was given written information regarding hospital policies, unit procedures and contact persons. Valuables were checked and left in room. Patient arrived to room 124 via ER due to weakness and hypotension. Patient denies complaints at this times and is feeling much better. Vitals stable upon arrival to unit and patient is sitting up on side of bed waiting for supper. Will notify Dr Foster of arrival to unit for potential orders.
[2019-08-23 17:26] VITALS: BP 124/84
[2019-08-23 18:24] VITALS: BP 124/84
[2019-08-23] MEDS ORDERED: SENN8.6T11 PO (18:28)
[2019-08-23] MEDS ORDERED: DOCU-109 PO (18:28)
[2019-08-23] MEDS ORDERED: SYNTHROID PO (18:28)
[2019-08-23 19:24] VITALS: BP 107/71
[2019-08-23] MEDS: IV NORMAL SALINE 1,000ML 1,000 ML IV SCH (20:42)
[2019-08-23] MEDS ORDERED: INSULIN GLARGINE SYRINGE. SQ SCH (21:00)
[2019-08-23] MEDS ORDERED: NON FORMULARY ITEM (Insulin Degludec (Tresiba Flextouch U-200) 20 UNIT) SQ SCH (21:00)
[2019-08-23] MEDS ORDERED: INSULIN ASPART 7 UNIT SQ SCH (21:00)
[2019-08-23 23:58] VITALS: BP 110/74
[2019-08-24 05:10] VITALS: BP 109/76
[2019-08-24] MEDS: IV NORMAL SALINE 1,000ML 1,000 ML IV SCH (05:20)
[2019-08-24] MEDS ORDERED: INSULIN LISPRO 300 UNITS/3 ML VIAL. SQ SCH (08:00)
[2019-08-24] MEDS ORDERED: CARISOPRODOL 350 MG TABLET PO PRN (10:15)
[2019-08-24] MEDS ORDERED: NITROGLYCERIN SUBLINGUAL 0.4 MG BOTTLE OF 25. SL PRN (10:15)
[2019-08-24] MEDS ORDERED: GABAPENTIN 600 MG PO PRN (10:15)
--- NOTE | 2019-08-24 11:08 | DS ---
DATE OF DISCHARGE: 08/23/2019 ATTENDING PHYSICIAN: Dr. Pa. FINAL DISCHARGE DIAGNOSES: 1. Dehydration, rehydrated. 2. Essential hypertension. 3. Longstanding history of schizoaffective disorder. 4. Generalized debilitation. 5. Hyperlipidemia. 6. Chronic back pain. 7. Gastroesophageal reflux disease. 8. Type 2 diabetes, insulin-dependent. HISTORY OF PRESENT ILLNESS: This 64-year-old gentleman has diabetes, autonomic disorder. He was symptomatic and weak. When he came in, blood pressure was 80s-90s. He was mildly dehydrated. He was admitted for observation and hydration overnight. PHYSICAL EXAMINATION: Please see the dictated note. PERTINENT LABORATORY AND X-RAY STUDIES: His admission hemoglobin was 9.9 g/dL. White count 11,600. Electrolytes unremarkable. His blood sugars were 164. His baseline creatinine is about 2.0 mg/dL. COURSE IN THE HOSPITAL: The patient was admitted to the hospital, he was given IV hydration. Diet was advanced. Sugars were monitored. He did well. By the next day, he was perfusing well. He had no other symptoms. He wanted to go home, I felt this is reasonable. Therefore, on the second hospital day, he was discharged home with continuation of his daily Spiriva, Soma as needed, Eliquis 5 mg b.i.d., Crestor 5 mg daily, nitroglycerin p.r.n., Neurontin 600 mg t.i.d. as needed, Risperdal 1 mg at bedtime, docusate, senna, Protonix 40 mg daily, Januvia 100 mg daily, insulin short acting NovoLog and a long-acting and Synthroid. He will follow up with his regular PCP. The patient then discharged from our hospital in stable condition with explicit instructions and followup care. SHIRLENE PA MD DR: YANIRA/steven JOB#: [id number] / [id number]
--- NOTE | 2019-08-24 11:29 | NUR ---
PATIENT DISCHARGED TO HOME, TAKEN TO THE FRONT DOOR VIA W/C ACCOMPANIED BY RN, BELONGINGS SENT WITH PATIENT. PATIENT RIDE AWAITING AT THE FRONT DOOR OF THE HOSPITAL, TAKING PATIENT HOME.
[2019-08-24] MEDS ORDERED: IPRATRPIUM/ALBUTEROL 0.5/2.5MG 3 ML NEBU. NEB SCH (12:00)
[2019-08-24] MEDS ORDERED: DOCUSATE SODIUM 100 MG CAPSULE PO SCH (14:00)
[2019-08-24] MEDS ORDERED: SENNOSIDES 8.6 MG TABLET PO SCH (14:00)
[2019-08-24] MEDS ORDERED: ATORVASTATIN CALCIUM 20 MG TABLET PO SCH (16:00)
[2019-08-24] MEDS ORDERED: NON FORMULARY ITEM (Rosuvastatin Calcium (Crestor) 1 TAB) PO SCH (16:00)
[2019-08-24] MEDS ORDERED: APIXABAN 5 MG TABLET. PO SCH (21:00)
[2019-08-24] MEDS ORDERED: risperiDONE 1 MG TABLET. PO SCH (21:00)
[2019-08-25] MEDS ORDERED: NON FORMULARY ITEM (Sitagliptin Phosphate (Januvia) 100 MG) PO SCH (09:00)
[2019-08-25] MEDS ORDERED: NON FORMULARY ITEM (Tiotropium Bromide (Spiriva) 2 PUFF) IH SCH (09:00)
[2019-08-25] MEDS ORDERED: PANTOPRAZOLE 40 MG TABLET. PO SCH (09:00)
[2019-08-25] MEDS ORDERED: LINAGLIPTIN 5 MG TABLET PO SCH (09:00)
== END 2019-08-24 11:20 | disposition home or self-care (01) ==
LOC: ER 09:30 → INTOOBSV 14:33 → 1 SOUTH 14:33 → ER 17:00
PROVIDERS: ADMIT Hospitalist; ATTEND Hospitalist
DX: I95.9 Hypotension, unspecified (principal); E86.0 Dehydration; I12.9 Hypertensive chronic kidney disease with stage 1 through stage 4 chronic kidney disease, or unspecified chronic kidney disease; E11.22 Type 2 diabetes mellitus with diabetic chronic kidney disease; N18.3 Chronic kidney disease, stage 3 (moderate); F25.9 Schizoaffective disorder, unspecified; R53.81 Other malaise; K21.9 Gastro-esophageal reflux disease without esophagitis; J44.9 Chronic obstructive pulmonary disease, unspecified; R53.1 Weakness; G89.29 Other chronic pain; M54.9 Dorsalgia, unspecified; E78.5 Hyperlipidemia, unspecified; Z87.891 Personal history of nicotine dependence; Z88.0 Allergy status to penicillin; Z79.899 Other long term (current) drug therapy; Z79.4 Long term (current) use of insulin; Z79.01 Long term (current) use of anticoagulants; Z99.81 Dependence on supplemental oxygen
CPT/HCPCS: 36415; 71045; 80053; 81001; 82947; 83605; 85025; 87040; 87070; 87804; 87880; 96360; 96361; 99284; G0378; J1815; G0379; 99285-25; J7030

== ENCOUNTER 2019-09-03 17:25 | Observation (INO) | payer MEDICARE, MEDICAID ==
[~2019-09-03] VITALS: Ht 170.2 cm; Wt 107.5 kg
[~2019-09-03 17:25] MED LIST changes: +SENN8.6T11 PO; +SYNTHROID PO
--- NOTE | 2019-09-03 17:50 | PHYS DOC ---
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 AM... I stay up at night.. I had a cheese burger at 2.. 2:30..ougn it was GERD... but the uncomfortable feeling never went away.. I have not been able to sleep well all day...." HPI HPI Patient is a 64 year old male who presents with above hx and complaints of chest discomfort which is epigastric and into the sternal area. Patient denies any changes or meds. Has had significant medical history for small cell lung cancer, renal and liver. Had undergone radiation and gets chemotherapy via port approximately once a month. Patient follows at [facility] Dr. Cisco Tolliver for treatment. Patient does have an appointment on Thursday the with Dr. Tolliver. Patient has significant history of hypertension, coronary artery disease, schizoaffective disorder, hyperlipidemia, chronic pain, GERD, diabetes, pulmonary embolism, COPD and DVT. Patient last attended our facility on 08/23/2019 Follow edwige Galeas as primary. Pt. states he quit smoking approximately 2 years ago. Review of Systems Review of Systems Constitutional: Denies fever or chills [] Eyes: Denies change in visual acuity, redness, or eye pain [] HENT: Denies nasal congestion or sore throat [] Respiratory: Hx of cough and shortness of breath []Cough reported is his normal cough for bronchitis and COPD. Cardiovascular: No additional information not addressed in HPI [] GI: Denies abdominal pain, nausea, vomiting, bloody stools or diarrhea [] : Denies dysuria or hematuria [] Musculoskeletal: Denies back pain or joint pain [] Integument: Denies rash or skin lesions [] Neurologic: Denies headache, focal weakness or sensory changes [] Endocrine: Denies polyuria or polydipsia [] All other systems were reviewed and found to be within normal limits, except as documented in this note. Family History Family History Noncontributory Current Medications Current Medications See nursing for home meds Allergies Allergies Allergies Coded Allergies Type Severity Reaction Last Updated Verified amoxicillin Allergy Severe Rash 01/25/18 Yes ampicillin Allergy Severe Rash 01/25/18 Yes Penicillins Allergy Intermediate Rash 01/25/18 Yes azithromycin Allergy Intermediate 03/24/18 Yes clindamycin Allergy Intermediate 01/25/18 Yes ibuprofen Allergy Intermediate 11/11/18 Yes Physical Exam Physical Exam Constitutional: Moderate acute distress, non-toxic appearance. [] HENT: Normocephalic, atraumatic, bilateral external ears normal, oropharynx moist, no oral exudates, nose normal. [] Eyes: PERRLA, EOMI, conjunctiva normal, no discharge. [] Neck: Normal range of motion, no tenderness, supple, no stridor. [] Cardiovascular: Tachycardia Heart rate regular rhythm, no murmur []PMI to the left Lungs & Thorax: Bilateral breath sounds equal apex scattered wheezes on auscultation [. He has]port on right chest wall Abdomen: Bowel sounds normal, soft, no tenderness, no masses, no pulsatile masses. [Obese. Skin: Warm, dry, no erythema, no rash. Scars in the axillary area Back: No tenderness, no CVA tenderness. [] Extremities: No tenderness, no cyanosis, no clubbing, ROM intact, no edema. [] Neurologic: Alert and oriented X 3, normal motor function, normal sensory function, no focal deficits noted. [] Psychologic: Affect anxious, judgement normal, mood normal. [] EKG EKG My interpretation EKG shows sinus tachycardia 100 bpm. Does have a right bundle- branch block. Some nonspecific contour changes in anterior lateral leads.[]. No findings acute STEMI with contralateral changes. Radiology/Procedures Radiology/Procedures [][address] [place] [id number] IMAGING REPORT Signed PATIENT: MARCELO ROA GACCOUNT: [id number] : 1955 LOCATION: ER AGE: 64 SEX: M EXAM STATUS: REG ER ORD. PHYSICIAN: MEHDI KAT MD REASON: cp, X A FEW HOURS PROCEDURE: CHEST PA & LATERAL PA and lateral chest radiographs 09/03/2019 CLINICAL HISTORY: Chest pain for several hours. PA and lateral digital radiographs of the chest were obtained. Comparison study is dated 08/23/2019. A right internal jugular Vrubpt-r-[id number] type catheter is unchanged in position. The cardiac silhouette is normal in size. The thoracic aorta is mildly tortuous. No acute pulmonary infiltrate is seen. No pleural effusion or pneumothorax is noted. Degenerative changes are seen involving the thoracic spine. IMPRESSION: No acute abnormality is seen. Electronically signed by: Javier Hurst MD (09/03/2019 8:26 PM) [id number] DICTATED AND SIGNED BY: JAVIER HURST MD DATE: 09/03/192025 CC: MEHDI KAT MD; TERRY GALEAS ~ Course & Med Decision Making Course & Med Decision Making Pertinent Labs and Imaging studies reviewed. (See chart for details) []Pt. admitted to [facility]- with consult to Cardiology. Heart Score 5 to 6 Impression: 1. Chest Pain 2. Hx. CADz 3. Hx. HTN 4. Hx. Schizaffective Dz. 5. Hx. Small Cell Lung Cancer-Liver, Renal- s/p radiation, now cycles of chemo 6. Hx GERD 7. Anemia hemoglobin 9.4 8. Hyponatremia 135 9. Dehydration 10. Elevated BUN and creatinine 33/2.3 11. History of diabetes 12. Hypo-magnesium 1.5 13. Elevated alkaline phosphatase 152 14. Malnutrition albumin 3.0 15. Elevated D-dimer 5.62 Dragon Disclaimer Dragon Disclaimer This electronic medical record was generated, in whole or in part, using a voice recognition dictation system. Departure Departure: Disposition: 01 HOME/RESIDENCE PRIOR TO ADM Condition: STABLE Referrals: ETRRY GALEAS (PCP) Dragon Disclaimer This chart was dictated in whole or in part using Voice Recognition software in a busy, high-work load, and often noisy Emergency Department environment. It may contain unintended and wholly unrecognized errors or omissions. Dragon Disclaimer This chart was dictated in whole or in part using Voice Recognition software in a busy, high-work load, and often noisy Emergency Department environment. It may contain unintended and wholly unrecognized errors or omissions. Dragon Disclaimer This chart was dictated in whole or in part using Voice Recognition software in a busy, high-work load, and often noisy Emergency Department environment. It may contain unintended and wholly unrecognized errors or omissions. MEHDI KAT MD Sep 03, 2019 17:50
[2019-09-03] MEDS ORDERED: IV RINGERS SOLUTION,LACTATED 1,000 ML IV SCH (17:53)
[2019-09-03] MEDS ORDERED: ASPIRIN 81 MG TAB.CHEW PO ONE (18:00)
[2019-09-03] MEDS ORDERED: IPRATRPIUM/ALBUTEROL 0.5/2.5MG 3 ML NEBU. ONE (18:02)
[2019-09-03 18:09] LABS: CREATININE 2.3 mg/dL (0.7-1.3); GFR 34.9; POTASSIUM 4.2 mmol/L (3.5-5.1)
[2019-09-03 18:15] LABS: BASO % 0 % (0-3); EOS # 0.1 x10^3/uL (0.0-0.7); EOS % 1 % (0-3); HEMATOCRIT 28.1 % (39.0-53.0); HEMOGLOBIN 9.4 g/dL (13.0-17.5); LYMPH # 2.6 x10^3/uL (1.0-4.8); LYMPH % 25 % (24-48); MEAN CORPUSCULAR HEMOGLOBIN 31 pg (25-35); MEAN CORPUSCULAR HGB CONC 33 g/dL (31-37); MEAN CORPUSCULAR VOLUME 94 fL (79-100); MONO # 0.8 x10^3/uL (0.0-1.1); MONO % 8 % (0-9); NEUT % 66 % (31-73); PLATELET COUNT 331 x10^3/uL (140-400); RED BLOOD COUNT 2.99 x10^6/uL (4.30-5.70); RED CELL DISTRIBUTION WIDTH 14.7 % (11.5-14.5); WHITE BLOOD COUNT 10.6 x10^3/uL (4.0-11.0)
[2019-09-03 18:25] LABS: DIRECT BILIRUBIN 0.1 mg/dL (0.0-0.2); MAGNESIUM 1.5 mg/dL (1.8-2.4); TOTAL BILIRUBIN 0.2 mg/dL (0.2-1.0)
[2019-09-03] MEDS ORDERED: MORPHINE SULFATE 10 MG/ML SYRINGE. SQ ONE (18:30)
[2019-09-03] MEDS ORDERED: FAMOTIDINE 20 MG/2 ML VIAL IVP ONE (18:30)
[2019-09-03] MEDS ORDERED: NITROGLYCERIN OINT 1 GM PACKET. TP ONE (19:00)
[2019-09-03] MEDS ORDERED: MORPHINE SULFATE 2 MG/ML DISP.SYRIN. IVP PRN (19:00)
[2019-09-03] MEDS ORDERED: MAGNESIUM SULFATE 2GM 50 ML IV ONE (19:30)
[2019-09-03] MEDS ORDERED: ENOXAPARIN ** NOTE DOSE ** SYRINGE SQ SCH (19:30)
[2019-09-03 19:55] LABS: INFLUENZA A PATIENT NEGATIVE (NEGATIVE); INFLUENZA B PATIENT NEGATIVE (NEGATIVE)
--- NOTE | 2019-09-03 20:08 | EKG ---
[address] [address] Test Date: 2019-09-03 Test Time: 17:37:38 Pat Name: MARCELO DONISDarlineAmbika Department: Room: Gender: M Director Of Accreditation: : 1955 Requested By: MEHDI KAT Order Number: [id number] Reading MD: Measurements Intervals [place] Rate: 100 P: 47 OR: 132 QRS: 79 QRSD: 134 T: 28 QT: 380 QTc: 494 Interpretive Statements SINUS RHYTHM RIGHT BUNDLE BRANCH BLOCK RVH WITH REPOLARIZATION ABNORMALITY QRS(T) CONTOUR ABNORMALITY CONSIDER ANTEROLATERAL MYOCARDIAL DAMAGE ABNORMAL ECG RI6.01 No previous ECG available for comparison
--- NOTE | 2019-09-03 20:29 | RAD ---
PA and lateral chest radiographs 09/03/2019 CLINICAL HISTORY: Chest pain for several hours. PA and lateral digital radiographs of the chest were obtained. Comparison study is dated 08/23/2019. A right internal jugular Fyhbmf-k-Ywlg type catheter is unchanged in position. The cardiac silhouette is normal in size. The thoracic aorta is mildly tortuous. No acute pulmonary infiltrate is seen. No pleural effusion or pneumothorax is noted. Degenerative changes are seen involving the thoracic spine. IMPRESSION: No acute abnormality is seen. Electronically signed by: Javier Hurst MD (09/03/2019 8:26 PM) [id number]
[2019-09-03] MEDS: NITROGLYCERIN OINT 1 GM PACKET. TP SCH (21:00)
[2019-09-03] MEDS ORDERED: FAMOTIDINE 20 MG/2 ML VIAL IVP SCH (21:00)
[2019-09-03] MEDS: IPRATRPIUM/ALBUTEROL 0.5/2.5MG 3 ML NEBU. NEB SCH (21:33)
[2019-09-03 22:36] VITALS: BP 109/77
[2019-09-04] MEDS ORDERED: NITROGLYCERIN SUBLINGUAL 0.4 MG BOTTLE OF 25. SL PRN (04:15)
[2019-09-04] MEDS ORDERED: CARISOPRODOL 350 MG TABLET PO PRN (04:15)
[2019-09-04 04:53] LABS: CALCIUM 9.1 mg/dL (8.5-10.1); CREATININE 2.1 mg/dL (0.7-1.3); GFR 38.8; POTASSIUM 4.4 mmol/L (3.5-5.1)
[2019-09-04 04:54] LABS: BASO # 0.1 x10^3/uL (0.0-0.2); BASO % 1 % (0-3); EOS # 0.1 x10^3/uL (0.0-0.7); EOS % 1 % (0-3); HEMATOCRIT 26.6 % (39.0-53.0); HEMOGLOBIN 8.7 g/dL (13.0-17.5); LYMPH % 21 % (24-48); MEAN CORPUSCULAR HEMOGLOBIN 31 pg (25-35); MEAN CORPUSCULAR HGB CONC 33 g/dL (31-37); MEAN CORPUSCULAR VOLUME 94 fL (79-100); MONO # 0.6 x10^3/uL (0.0-1.1); MONO % 6 % (0-9); NEUT # 6.7 x10^3uL (1.8-7.7); NEUT % 71 % (31-73); PLATELET COUNT 279 x10^3/uL (140-400); RED BLOOD COUNT 2.82 x10^6/uL (4.30-5.70); RED CELL DISTRIBUTION WIDTH 14.9 % (11.5-14.5); WHITE BLOOD COUNT 9.4 x10^3/uL (4.0-11.0)
[2019-09-04] MEDS: IPRATRPIUM/ALBUTEROL 0.5/2.5MG 3 ML NEBU. NEB SCH ×4 (04:55→15:07)
[2019-09-04 05:19] VITALS: BP 109/79
[2019-09-04] MEDS ORDERED: ANTI-COAG MONITOR BY PHARMACY. MC PRN (05:45)
[2019-09-04 06:33] LABS: BILIRUBIN,URINE NEG (NEG); CLARITY,URINE CLEAR; COLOR,URINE YELLOW; GLUCOSE,URINE NEG (NEG)
[2019-09-04 06:34] LABS: AMORPHOUS SEDIMENT,UR PRESENT /HPF; BACTERIA,URINE FEW /HPF (0-FEW); NITRITE,URINE NEG (NEG); RBC,URINE 0 /HPF (0-2); SQUAMOUS EPITHELIAL CELL,UR FEW /LPF; UROBILINOGEN,URINE 0.2 mg/dL (0.2 mg/dL); WBC,URINE 0 /HPF (0-4)
[2019-09-04 06:41] LABS: BARBITURATES NEG (NEG); BENZODIAZEPINES NEG (NEG); CANNABINOIDS NEG (NEG); COCAINE NEG (NEG); METHADONE NEG (NEG); OPIATES POS (NEG); PHENCYCLIDINE NEG (NEG)
[2019-09-04 06:43] LABS: AMPHETAMINE/METHAMPHETAMINE NEG (NEG)
[2019-09-04] MEDS ORDERED: PANTOPRAZOLE 40 MG TABLET. PO SCH (07:30)
[2019-09-04] MEDS ORDERED: INSULIN LISPRO 300 UNITS/3 ML VIAL. SQ SCH (07:30)
[2019-09-04] MEDS ORDERED: APIXABAN 5 MG TABLET. PO SCH (09:00)
[2019-09-04] MEDS ORDERED: ASPIRIN 81 MG TAB.CHEW PO SCH (09:00)
[2019-09-04] MEDS ORDERED: LINAGLIPTIN 5 MG TABLET PO SCH (09:00)
[2019-09-04] MEDS ORDERED: GABAPENTIN 300 MG CAPSULE. PO PRN (09:00)
[2019-09-04] MEDS: NITROGLYCERIN OINT 1 GM PACKET. TP SCH ×2 (09:28→13:38)
[2019-09-04 10:33] VITALS: BP 134/80
--- NOTE | 2019-09-04 10:47 | RAD ---
VENOUS LOWER EXT BILATERAL History: DVT. Dyspnea. Lung cancer. Comparison: None. Discussion: Multiple longitudinal and transverse high resolution real-time images of the venous system of bilateral lower extremity were obtained with color and Doppler sampling. The common femoral, superficial femoral, an popliteal veins are all patent and demonstrate normal flow and compressibility. Normal respiratory phasicity and augmentation is present. Calf veins not well seen due to patient body habitus. Impression: 1. No evidence of deep vein thrombosis. Electronically signed by: Fuad Duff DO (09/04/2019 10:45 AM) [id number]
--- NOTE | 2019-09-04 11:03 | PN ---
DATE: 09/04/2019 SUBJECTIVE: The patient is resting, slightly propped up in bed, no apparent distress. He stated his pain is much improved, continued to have shortness of breath, cough with yellowish sputum. PHYSICAL EXAMINATION: GENERAL: When I examined him, however, he looked well and was clearly in no apparent respiratory distress, pale, but no jaundice, cyanosis or thyromegaly. No jugular venous distention. No limb edema. VITAL SIGNS: His heart rate was 112, blood pressure 134/80, temperature was 98.1, respiratory rate was 20, and oxygen saturation was 97% on 2 liters of oxygen. HEAD, EYES, EARS, NOSE AND THROAT: Showed normocephalic, atraumatic. NECK: Supple. HEART: Showed normal first and second heart sounds with no gallop or murmur. CHEST: Clear to auscultation. No crepitation or rhonchi. ABDOMEN: Distended, soft, nontender. NEUROLOGIC: He is awake, alert, responding appropriately. All cranial nerves are intact. He moves extremities without difficulty. LABORATORY DATA: His lab work this morning showed a white cell count 9400, hemoglobin 8.7, hematocrit 27, MCV 94, platelet count 279,000. His chemistry showed a serum sodium 135, potassium 4.4, chloride 102, bicarbonate 24, anion gap of 9, BUN 32, creatinine 2.1, estimated GFR was 39 mL per minute. His glucose 134, calcium was 9.1. He has 2 more sets of cardiac enzymes, showed troponin to be less than 0.017. Obviously, his PT/INR and aPTT are normal. D-dimer was elevated; however, the patient is already on apixaban. PLAN: My plan is to await consult of the cardiology team and perhaps the patient can be discharged with arrangement for outpatient ischemic workup. ADIEL JACKSON MD DR: MADELAINE/steven JOB#: [id number] / [id number]
--- NOTE | 2019-09-04 11:13 | HP ---
ADMIT DATE: 09/04/2019 HISTORY OF PRESENT ILLNESS: The patient is a 64-year-old -[place] male patient who presented with a complaint of chest pain started around 1:00 in the morning. He according to him stayed up all night. He had a cheeseburger at 2:00 to 2:30, thought it was gastroesophageal reflux, but then he continued to be uncomfortable feeling, never went away and was not able to sleep well all day. The pain is mostly in the epigastric into the sternal area. He denies any change in medication. Denied any nausea or vomiting. He did complain of shortness of breath, cough with yellowish sputum. He apparently has had chemotherapy and radiation treatment, about a month ago and follows usually at [place] [facility] Dr. Kari Tolliver. He has an appointment to see her again on Thursday09/06/2019. The pain is mostly in the left side of the sternum, it actually started at rest and is not aggravated by exertion. Denied any nausea, vomiting, diaphoresis. Denied any radiation of the pain and the pain has lasted all day, he arrived in the Emergency Room where he apparently has received aspirin and morphine and according to him, his pain has resolved. His initial lab work showed a troponin to be less than 0.017. His white cell count was normal. His chemistry showed that he has chronic kidney disease. His prothrombin time, INR and aPTT are normal. D-dimer was high at 5.62, however, is already on apixaban. Urinalysis is unremarkable. Toxic screen was positive for opiates and his influenza A and B were negative. The patient was admitted to do 2 more sets of cardiac enzyme and to consult the sales & service associate. PAST MEDICAL HISTORY: Significant for hypertension, hyperlipidemia, history of limited small cell lung cancer, status post chemotherapy, has also left upper lobe pulmonary embolism, on Eliquis, no DVT, history of COPD, on oxygen, peripheral neuropathy, anemia, schizophrenia, history of pneumothorax after biopsy about a year ago. PAST SURGICAL HISTORY: Significant for lung biopsy, chest tube placement for pneumothorax after lung biopsy. He has a colonoscopy, lymph node biopsy and cyst removal. ALLERGIES: HE IS ALLERGIC TO PENICILLIN, AMOXICILLIN, AZITHROMYCIN, AND CLINDAMYCIN. SOCIAL HISTORY: He is single. He apparently is and lives alone. He has 3 biological children and one stepson. He quit smoking on 05/31/2016. He used to smoke a pack a day and smoked for almost 40 years. He does not drink alcohol or use any recreational drugs. He is currently on disability. He was in [employer], worked also at [employer] and many other jobs. FAMILY HISTORY: He has 2 brothers, both are younger. The youngest brother has prostate cancer. One sister had lung cancer. The other has type 2 diabetes. His father at the age of 62 because of lung cancer and his mother at the age of 73 because of lung cancer. MEDICATIONS: He is currently on following medications: He is on tiotropium bromide for Spiriva HandiHaler 1 inhalation once a day, Soma 350 mg p.o. t.i.d., apixaban 5 mg twice a day, Crestor 5 mg Thursday, Thursday, Thursday, nitroglycerin 0.4 mg sublingually every 5 minutes x 3, gabapentin 600 mg 3 times a day, risperidone 1 mg at bedtime, Colace 100 mg 3 times a day, Senna 1 tablet 3 times a day, Protonix 40 mg daily and sitagliptin for Januvia 100 mg once a day, NovoLog FlexPen 7 units twice a day and he is also on Tresiba 20 units at bedtime. He is on Synthroid, the dose of which is not clear to me, once a day. REVIEW OF SYSTEMS: As per history of present illness. PHYSICAL EXAMINATION: GENERAL: On arrival to the Emergency Room, the patient looked well and was clearly in no apparent respiratory distress. He was pale, no jaundice, cyanosis or thyromegaly. No jugular venous distention. No limb edema. VITAL SIGNS: His heart rate was 73, blood pressure was 101/74, temperature was 98.3, respiratory rate was 24, and oxygen saturation was 95% on 2 liters of oxygen. HEAD, EYES, EARS, NOSE AND THROAT: Showed normocephalic, atraumatic. NECK: Supple. HEART: Showed normal first and second heart sounds. No gallop or murmur. CHEST: Clear to auscultation. No crepitation or rhonchi. ABDOMEN: Distended, soft, nontender. NEUROLOGIC: He was awake, alert, responding appropriately. All cranial nerves intact. EXTREMITIES: He moves extremities without difficulty. He normally ambulates with a cane and/or walker. LABORATORY DATA: On admission showed a white cell count of 10,600, hemoglobin 9.4, hematocrit 28, MCV 94 and platelet count of 331,000. His chemistry showed a serum sodium 135, potassium 4.2, chloride 99, bicarbonate 21, anion gap of 15, BUN 33, creatinine 2.3, estimated GFR was 35 mL per minute, his glucose 112, lactic acid was 1.5, calcium was 9, magnesium was 1.5. Total bilirubin, AST and ALT are normal. Alkaline phosphatase slightly elevated. CK was 151. First troponin was less than 0.017. Beta natriuretic peptide was 584. Total protein 7, albumin was 3. Prothrombin time was 11.8, INR 1.1, aPTT was 29. D-dimer was high at . His urinalysis showed the urine was yellow, clear with a pH of 5.5, specific gravity 1.010. The urine was negative for protein, glucose, ketones, blood, nitrite, leukocyte esterase. There are no rbc's, no wbc's, and no bacteria. His toxic screen was positive for opiates, negative for all other drugs. His influenza A and B were negative. He did have a chest x-ray, the cardiac silhouette is normal in size. Thoracic aorta is mildly tortuous, no acute pulmonary infiltrate is seen. No pleural effusion or pneumothorax is noted. Degenerative changes are seen involving the thoracic spine. His EKG showed that he was in sinus tachycardia at 100 beats per minute with right bundle branch block, some nonspecific changes in the anterolateral leads. No finding of acute STEMI. PLAN: The patient was admitted to do 2 more sets of cardiac enzyme, was continued on all his other medications. We will consult the Cardiology team and decide the further management accordingly. ADIEL JACKSON MD DR: MADELAINE/steven JOB#: [id number] / [id number]
[2019-09-04 11:16] LABS: THYROID STIM HORMONE (TSH) 7.215 uIU/mL (0.358-3.740)
--- NOTE | 2019-09-04 12:59 | PDOC2 ---
CARDIAC CONSULT DATE OF CONSULT Date Of Consult DATE: 09/04/19 TIME: 12:51 REASON FOR CONSULT Reason for Consult chest pain REFERRING PHYSICIAN Referring Physician Dr. Harris SOURCE Source: Chart review, Patient HPI History of Present Illness The patient is a 64-year-old male who presented and admitted positive from the emergency room due to episodes of chest discomfort. The patient EKG showed a sinus rhythm with a right bundle branch block and nonspecific ST-T wave changes. Initial troponin was normal. The patient did have an elevated d-dimer but his lower extremity ultrasound showed no DVTs and the patient is on home Eliquis. Chest x-ray showed no acute changes. He does has an extensive medical history most significant for small cell cancer to his lungs, liver and kidneys and he is status post radiation treatment and ongoing chemotherapy by Dr. Tolliver at [facility]. He also has reported history of coronary disease, congestive heart failure as well as diabetes and schizophrenia. He was discharged from [facility] approximately one week ago for admission for dehydration and generalized pain. Lab is also positive for opioids on his screening test. The patient is significantly more comfortable today. His chest pain has largely resolved except for on deep inspiration. PAST MEDICAL HISTORY Cardiovascular: CAD, HTN, hyperipidemia Pulmonary: COPD, Other Heme/Onc: Cancer, Other Psych: Schizophrenia Musculoskeletal: Other (generalized pain) Endocrine: Diabetes PAST SURGICAL HISTORY Past Surgical History: Other (lung biopsy.) SOCIAL HISTORY Smoke: Quit ALCOHOL: none CURRENT MEDICATIONS Current Medications Current Medications Aspirin (Children'S Aspirin) 324 mg 1X ONCE PO Last administered on 09/03/19at 18:18; Start 09/03/19 at 18:00; Stop 09/03/19 at 18:06; Status DC Lactated Ringer's 1,000 ml @ 100 mls/hr Q10H IV Last administered on 09/03/19at 18:18; Start 09/03/19 at 17:53; Stop 09/04/19 at 03:52; Status DC Albuterol/ Ipratropium (Duoneb) 3 ml STK-MED ONCE .ROUTE ; Start 09/03/19 at 18:02; Stop 09/03/19 at 18:02; Status DC Famotidine (Pepcid Vial) 20 mg 1X ONCE IVP ; Start 09/03/19 at 18:30; Stop 09/03/19 at 18:31; Status DC Morphine Sulfate (Morphine 10mg Syringe) 10 mg 1X ONCE SQ Last administered on 09/03/19at 21:26; Start 09/03/19 at 18:30; Stop 09/03/19 at 18:31; Status DC Nitroglycerin (Nitro-Bid Oint) 1 inch 1X ONCE TP ; Start 09/03/19 at 19:00; Stop 09/03/19 at 19:01; Status DC Morphine Sulfate (Morphine 2mg Syringe) 2 mg PRN Q2HR PRN IVP PAIN; Start 09/03/19 at 19:00; Stop 09/04/19 at 18:59 Albuterol/ Ipratropium (Duoneb) 3 ml RTQID NEB Last administered on 09/04/19at 04:55; Start 09/03/19 at 20:00; Stop 09/04/19 at 05:26; Status DC Famotidine (Pepcid Vial) 20 mg QHS IVP Last administered on 09/03/19at 21:09; Start 09/03/19 at 21:00; Stop 09/04/19 at 05:37; Status DC Enoxaparin Sodium (Lovenox 100mg Syringe) 100 mg BID SQ Last administered on 09/03/19at 21:10; Start 09/03/19 at 19:30; Stop 09/04/19 at 05:35; Status DC Nitroglycerin (Nitro-Bid Oint) 1 inch TID TP ; Start 09/03/19 at 21:00 Aspirin (Children'S Aspirin) 81 mg DAILY PO Last administered on 09/04/19at 08:29; Start 09/04/19 at 09:00 Magnesium Sulfate 50 ml @ 25 mls/hr 1X ONCE IV Last administered on 09/03/19at 21:12; Start 09/03/19 at 19:30; Stop 09/03/19 at 21:29; Status DC Apixaban (Eliquis) 5 mg BID PO Last administered on 09/04/19at 08:29; Start 09/04/19 at 09:00 Carisoprodol (Soma) 350 mg PRN TID PRN PO MUSCLE SPASMS; Start 09/04/19 at 04:15 Nitroglycerin (Nitrostat) 0.4 mg PRN Q5MIN PRN SL chest pain; Start 09/04/19 at 04:15 Pantoprazole Sodium (Protonix) 40 mg DAILYAC PO Last administered on 09/04/19at 08:29; Start 09/04/19 at 07:30 Risperidone (RisperDAL) 1 mg QHS PO ; Start 09/04/19 at 21:00 Gabapentin (Neurontin) 600 mg PRN BID PRN PO PAIN Last administered on 09/04/19at 08:29; Start 09/04/19 at 09:00 Insulin Human Lispro (HumaLOG) 7 units BIDBFRMEAL SQ Last administered on 09/04/19at 08:30; Start 09/04/19 at 07:30 Insulin Glargine (Lantus Syringe) 20 unit QHS SQ ; Start 09/04/19 at 21:00 Atorvastatin Calcium (Lipitor) 20 mg QMWF PO ; Start 09/05/19 at 16:00 Linagliptin (Tradjenta) 5 mg DAILY PO Last administered on 09/04/19at 08:29; Start 09/04/19 at 09:00 Albuterol/ Ipratropium (Duoneb) 3 ml RTQID NEB Last administered on 09/04/19at 09:26; Start 09/04/19 at 08:00 Info (Anti-Coagulation Monitoring By Pharmacy) 1 each PRN DAILY PRN MC SEE COMMENTS; Start 09/04/19 at 05:45 Active Scripts Active Reported Colace (Docusate Sodium) 100 Mg Capsule 1 Cap PO TID 30 Days Senna Laxative (Sennosides) 8.6 Mg Tablet 1 Tab PO TID 30 Days [Synthroid] PO DAILY06 NITROGLYCERIN SubLingual (Nitroglycerin) 0.4 Mg Tab.subl 1 Tab SL [id number] MAY REPEAT X 2 DOSES IF NEEDED NOT GIVEN TODAY NEXT DOSE DUE: DATE: TODAY TIME: IF AND WHEN NEEDED Novolog Flexpen (Insulin Aspart) 100 Unit/1 Ml Insuln.pen 7 Unit SQ BID NOT GIVEN TODAY NEXT DOSE DUE: DATE: TODAY TIME: WITH DINNER IF NEEDED Tresiba Flextouch U-200 (Insulin Degludec) 200 Unit/1 Ml Insuln.pen 20 Unit SQ HS LAST DOSE GIVEN: DATE: YESTERDAY TIME: AT BEDTIME NEXT DOSE DUE: DATE: TODAY TIME: AT BEDTIME Eliquis (Apixaban) 5 Mg Tablet 5 Mg PO BID LAST DOSE GIVEN: DATE: TODAY TIME: AM NEXT DOSE DUE: DATE: TODAY TIME: PM Risperdal (Risperidone) 1 Mg Tablet 1 Tab PO QHS LAST DOSE GIVEN: DATE: YESTERDAY TIME: PM NEXT DOSE DUE: DATE: TODAY TIME: PM Crestor (Rosuvastatin Calcium) 5 Mg Tablet 1 Tab PO QMWF LAST DOSE GIVEN: DATE: YESTERDAY TIME: AM NEXT DOSE DUE: DATE: TOMORROW TIME: AM Januvia (Sitagliptin Phosphate) 100 Mg Tablet 100 Mg PO DAILY LAST DOSE GIVEN: DATE: TODAY TIME: WITH BREAKFAST NEXT DOSE DUE: DATE: TOMORROW TIME: WITH BREAKFAST Spiriva (Tiotropium Jasper) 18 Mcg Cap.w.dev 2 Puff IH DAILY NOT GIVEN IN THE HOSPITAL NEXT DOSE DUE: DATE: RESTART TODAY TIME: WHEN YOU GET HOME Protonix (Pantoprazole Sodium) 40 Mg Tablet.dr 1 Tab PO DAILY LAST DOSE GIVEN: DATE: TODAY TIME: AM NEXT DOSE DUE: DATE: TOMORROW TIME: AM Soma (Carisoprodol) 350 Mg Tablet 350 Mg PO TID PRN NOT GIVEN TODAY NEXT DOSE DUE: DATE: TODAY TIME: IF AND WHEN NEEDED Neurontin (Gabapentin) 600 Mg Tablet 600 Mg PO TID PRN LAST DOSE GIVEN: DATE: TODAY TIME: AFTERNOON NEXT DOSE DUE: DATE: TODAY TIME: PM ALLERGIES Allergies: Coded Allergies: amoxicillin (Verified Allergy, Severe, Rash, 01/25/18) ampicillin (Verified Allergy, Severe, Rash, 01/25/18) Penicillins (Verified Allergy, Intermediate, Rash, 01/25/18) and ear pain azithromycin (Verified Allergy, Intermediate, 03/24/18) clindamycin (Verified Allergy, Intermediate, 01/25/18) ibuprofen (Verified Allergy, Intermediate, 11/11/18) ROS General: YES: Fatigue Respiratory: YES: SOB with excertion Cardiovascular: yes: Chest Pain PHYSICAL EXAM General: mild distress HEENT: Atraumatic Lungs: Other (mildly decreased breath sounds) Heart: Regular rate VITALS Vital Signs Vital Signs Date Time Temp Pulse Resp B/P (MAP) Pulse Ox O2 Delivery O2 Flow Rate FiO2 09/04/19 10:33 98.1 112 134/80 (98) 93 Nasal Cannula 2.0 09/04/19 05:19 20 LABS LABS Laboratory Tests Test 09/03/19 17:40 09/03/19 18:44 09/03/19 19:10 09/03/19 22:33 White Blood Count 10.6 x10^3/uL (4.0-11.0) Red Blood Count 2.99 x10^6/uL (4.30-5.70) Hemoglobin 9.4 g/dL (13.0-17.5) Hematocrit 28.1 % (39.0-53.0) Mean Corpuscular Volume 94 fL (79-100) Mean Corpuscular Hemoglobin 31 pg (25-35) Mean Corpuscular Hemoglobin Concent 33 g/dL (31-37) Red Cell Distribution Width 14.7 % (11.5-14.5) Platelet Count 331 x10^3/uL (140-400) Neutrophils (%) (Auto) 66 % (31-73) Lymphocytes (%) (Auto) 25 % (24-48) Monocytes (%) (Auto) 8 % (0-9) Eosinophils (%) (Auto) 1 % (0-3) Basophils (%) (Auto) 0 % (0-3) Neutrophils # (Auto) 7.0 x10^3uL (1.8-7.7) Lymphocytes # (Auto) 2.6 x10^3/uL (1.0-4.8) Monocytes # (Auto) 0.8 x10^3/uL (0.0-1.1) Eosinophils # (Auto) 0.1 x10^3/uL (0.0-0.7) Basophils # (Auto) 0.0 x10^3/uL (0.0-0.2) Prothrombin Time 11.8 SEC (9.4-11.4) Prothromb Time International Ratio 1.1 (0.9-1.1) Activated Partial Thromboplast Time 29 SEC (23-33) D-Dimer (Mary) 5.62 mg/L (0.00-0.50) Sodium Level 135 mmol/L (136-145) Potassium Level 4.2 mmol/L (3.5-5.1) Chloride Level 99 mmol/L (98-107) Carbon Dioxide Level 21 mmol/L (21-32) Anion Gap 15 (6-14) Blood Urea Nitrogen 33 mg/dL (8-26) Creatinine 2.3 mg/dL (0.7-1.3) Estimated GFR (Cockcroft-Gault) 34.9 Glucose Level 112 mg/dL (70-99) Calcium Level 9.0 mg/dL (8.5-10.1) Magnesium Level 1.5 mg/dL (1.8-2.4) Total Bilirubin 0.2 mg/dL (0.2-1.0) Direct Bilirubin 0.1 mg/dL (0.0-0.2) Aspartate Amino Transf (AST/SGOT) 33 U/L (15-37) Alanine Aminotransferase (ALT/SGPT) 26 U/L (16-63) Alkaline Phosphatase 152 U/L (46-116) Creatine Kinase 151 U/L (39-308) Creatine Kinase MB (Mass) 1.8 ng/mL (0.0-3.6) Creatine Kinase MB Relative Index 1.2 % (0-4) Troponin I Quantitative < 0.017 ng/mL (0-0.055) DW-Lje-F-Type Natriuretic Peptide 584 pg/mL (0-124) Total Protein 7.0 g/dL (6.4-8.2) Albumin 3.0 g/dL (3.4-5.0) Triglycerides Level 70 mg/dL (0-150) Cholesterol Level 88 mg/dL (0-200) LDL Cholesterol, Calculated 26 mg/dL (0-100) VLDL Cholesterol, Calculated 14 mg/dL (0-40) Non-HDL Cholesterol Calculated 40 mg/dL (0-129) HDL Cholesterol 48 mg/dL (40-60) Cholesterol/HDL Ratio 1.0 Lipase 310 U/L (73-393) Thyroid Stimulating Hormone (TSH) 7.215 uIU/mL (0.358-3.740) Lactic Acid Level 1.5 mmol/L (0.4-2.0) Influenza Type A (Rapid) Negative (NEGATIVE) Influenza Type B (Rapid) Negative (NEGATIVE) Glucose (Fingerstick) 102 mg/dL (70-99) Test 09/04/19 00:50 09/04/19 03:55 09/04/19 05:10 09/04/19 07:01 Troponin I Quantitative < 0.017 ng/mL (0-0.055) < 0.017 ng/mL (0-0.055) White Blood Count 9.4 x10^3/uL (4.0-11.0) Red Blood Count 2.82 x10^6/uL (4.30-5.70) Hemoglobin 8.7 g/dL (13.0-17.5) Hematocrit 26.6 % (39.0-53.0) Mean Corpuscular Volume 94 fL (79-100) Mean Corpuscular Hemoglobin 31 pg (25-35) Mean Corpuscular Hemoglobin Concent 33 g/dL (31-37) Red Cell Distribution Width 14.9 % (11.5-14.5) Platelet Count 279 x10^3/uL (140-400) Neutrophils (%) (Auto) 71 % (31-73) Lymphocytes (%) (Auto) 21 % (24-48) Monocytes (%) (Auto) 6 % (0-9) Eosinophils (%) (Auto) 1 % (0-3) Basophils (%) (Auto) 1 % (0-3) Neutrophils # (Auto) 6.7 x10^3uL (1.8-7.7) Lymphocytes # (Auto) 2.0 x10^3/uL (1.0-4.8) Monocytes # (Auto) 0.6 x10^3/uL (0.0-1.1) Eosinophils # (Auto) 0.1 x10^3/uL (0.0-0.7) Basophils # (Auto) 0.1 x10^3/uL (0.0-0.2) Sodium Level 135 mmol/L (136-145) Potassium Level 4.4 mmol/L (3.5-5.1) Chloride Level 102 mmol/L (98-107) Carbon Dioxide Level 24 mmol/L (21-32) Anion Gap 9 (6-14) Blood Urea Nitrogen 32 mg/dL (8-26) Creatinine 2.1 mg/dL (0.7-1.3) Estimated GFR (Cockcroft-Gault) 38.8 Glucose Level 134 mg/dL (70-99) Calcium Level 9.1 mg/dL (8.5-10.1) Urine Collection Type Unknown Urine Color Yellow Urine Clarity Clear Urine pH 5.5 Urine Specific [place] 1.010 Urine Protein Neg (NEG-TRACE) Urine Glucose (UA) Neg mg/dL (NEG) Urine Ketones (Stick) Neg mg/dL (NEG) Urine Blood Neg (NEG) Urine Nitrite Neg (NEG) Urine Bilirubin Neg (NEG) Urine Urobilinogen Dipstick 0.2 mg/dL (0.2 mg/dL) Urine Leukocyte Esterase Neg (NEG) Urine RBC 0 /HPF (0-2) Urine WBC 0 /HPF (0-4) Urine Squamous Epithelial Cells Few /LPF Urine Amorphous Sediment Present /HPF Urine Bacteria Few /HPF (0-FEW) Glucose (Fingerstick) 171 mg/dL (70-99) Test 09/04/19 11:23 Glucose (Fingerstick) 150 mg/dL (70-99) IMAGES IMAGES Chest x-ray with no acute findings. EKG EKG EKG shows a sinus rhythm with a right bundle branch block and mild nonspecific ST segment changes. ASSESSMENT/PLAN Assessment/Plan 1. Chest pain. Pain has significantly improved and was apparently largely pleuritic yesterday. No acute EKG changes. Initial troponin normal. We will trend. As noted above the patient has a history of small cell lung cancer as well as coronary disease. If troponins remain negative and the patient's pain resolved would consider outpatient ischemia workup. 2. Small cell cancer involving the lung, liver and kidneys by report. Status post radiation treatment. Ongoing chemotherapy by Dr. Tolliver at [facility]. 3. COPD. Mild shortness of breath. Improving. Elevated d-dimer at 5.6 with the patient on anticoagulation. Chest x-ray shows no acute changes. Lower extremity ultrasound shows no DVTs. Consider CTA of the chest. 4. Schizophrenia. Continue present treatment. 5. Hypertension. Reasonable control. Continue medications. 6. Diabetes mellitus. As per the primary service. Thank you for allowing us to participate in the care of your patient. SKIP OVALLES MD Sep 04, 2019 12:59
[2019-09-04 14:53] VITALS: BP 111/72
--- NOTE | 2019-09-04 16:26 | DS ---
DATE OF DISCHARGE: HOSPITAL COURSE: The patient is a 64-year-old -[place] male patient who was admitted with chest pain that is fairly atypical. The pain was mostly in the left side of the chest. The pain is not aggravated by exertion. Denied any nausea, vomiting or diaphoresis. Denied radiation of the pain. The pain has resolved after he arrived to the Emergency Room and received aspirin, morphine. He has 3 sets of cardiac enzymes that ruled out myocardial infarction. His D-dimer is high at 5.622; however, he is already on apixaban. His venous Doppler ultrasound showed no evidence of deep vein thrombosis and CT angio cannot be done given that he has impaired kidney function. He is already on oxygen before and his oxygen saturation was around 100% on 2 liters of oxygen. He was seen in consultation by the Cardiology team. He has 3 sets of cardiac enzymes and arrangement can be made for him to have ischemic workup as an outpatient. PHYSICAL EXAMINATION: GENERAL: When I saw him this afternoon, he looked well and was clearly in no apparent respiratory distress. No pallor, jaundice, cyanosis or thyromegaly. No jugular venous distention. No limb edema. VITAL SIGNS: His heart rate was 102, blood pressure was 111/72, temperature was 98.3, respiratory rate was 20, and oxygen saturation was 100% on 2 liters of oxygen. HEAD, EYES, EARS, NOSE AND THROAT: Showed normocephalic, atraumatic. NECK: Supple. HEART: Showed normal first and second heart sounds. No gallop or murmur. CHEST: Clear to auscultation. No crepitation or rhonchi. ABDOMEN: Distended, soft, nontender. NEUROLOGIC: He is awake, alert, responding appropriately. All cranial nerves intact. EXTREMITIES: He moves extremities without difficulty. LABORATORY DATA: This morning showed a white cell count 9400, hemoglobin 8.7, hematocrit 26.6, MCV 94 and platelet count 279,000. Serum sodium was 135, potassium 4.4, chloride 102, bicarbonate 24, anion gap of 9, BUN 32, creatinine 2.1, estimated GFR was 38 mL per minute. His glucose 134, calcium was 9.1. He has 2 more sets of cardiac enzymes, showed troponin to be less than 0.017. DISCHARGE MEDICATIONS: The patient was discharged home to continue his apixaban 5 mg twice a day, Soma 350 mg 3 times a day, Colace 100 mg 3 times a day, gabapentin for Neurontin 600 mg 3 times a day, NovoLog insulin 7 units twice a day and Tresiba FlexTouch 20 units at bedtime, nitroglycerin 0.4 mg sublingually every 5 minutes x 3, Protonix 40 mg once a day, risperidone for Risperdal 1 mg at bedtime, Crestor 5 mg at bedtime, senna 1 tablet 3 times a day, sitagliptin phosphate for Januvia 100 mg daily, Synthroid dose of which is not very clear but the patient gets his medication from [facility] and Spiriva HandiHaler 1 inhalation once a day. FINAL DISCHARGE DIAGNOSES: 1. Chest pain, atypical, acute myocardial infarction was ruled out. 2. Small cell lung cancer, treated with chemotherapy. 3. Left upper lobe pulmonary embolism for which he is on Eliquis. 4. Chronic obstructive pulmonary disease, on oxygen. 5. Hypertension. 6. Hyperlipidemia. 7. Peripheral neuropathy. 8. Anemia. 9. Schizophrenia. ADIEL JACKSON MD DR: MADELAINE/steven JOB#: [id number] / [id number]
[2019-09-04] MEDS ORDERED: INSULIN GLARGINE SYRINGE. SQ SCH (21:00)
[2019-09-04] MEDS ORDERED: risperiDONE 1 MG TABLET. PO SCH (21:00)
[2019-09-05] MEDS ORDERED: ATORVASTATIN CALCIUM 20 MG TABLET PO SCH (16:00)
== END 2019-09-04 16:08 | disposition home or self-care (01) ==
LOC: ER 17:25 → INTOOBSV 18:15 → 1 SOUTH 18:15
PROVIDERS: ADMIT Internal Medicine; ATTEND Internal Medicine
DX: R07.89 Other chest pain (principal); F41.9 Anxiety disorder, unspecified; J44.9 Chronic obstructive pulmonary disease, unspecified; F20.9 Schizophrenia, unspecified; I11.0 Hypertensive heart disease with heart failure; I50.9 Heart failure, unspecified; M19.90 Unspecified osteoarthritis, unspecified site; C34.90 Malignant neoplasm of unspecified part of unspecified bronchus or lung; E11.22 Type 2 diabetes mellitus with diabetic chronic kidney disease; E46 Unspecified protein-calorie malnutrition; E78.5 Hyperlipidemia, unspecified; E83.42 Hypomagnesemia; E86.0 Dehydration; E87.1 Hypo-osmolality and hyponatremia; F25.9 Schizoaffective disorder, unspecified; E11.40 Type 2 diabetes mellitus with diabetic neuropathy, unspecified; I25.10 Atherosclerotic heart disease of native coronary artery without angina pectoris; I13.0 Hypertensive heart and chronic kidney disease with heart failure and stage 1 through stage 4 chronic kidney disease, or unspecified chronic kidney disease; I26.99 Other pulmonary embolism without acute cor pulmonale; I45.10 Unspecified right bundle-branch block; K21.9 Gastro-esophageal reflux disease without esophagitis; N18.9 Chronic kidney disease, unspecified; Z79.01 Long term (current) use of anticoagulants; Z80.1 Family history of malignant neoplasm of trachea, bronchus and lung; Z80.42 Family history of malignant neoplasm of prostate; Z83.3 Family history of diabetes mellitus; Z85.118 Personal history of other malignant neoplasm of bronchus and lung; Z86.711 Personal history of pulmonary embolism; Z87.891 Personal history of nicotine dependence; Z92.21 Personal history of antineoplastic chemotherapy; Z92.3 Personal history of irradiation; Z99.81 Dependence on supplemental oxygen; R94.4 Abnormal results of kidney function studies; R74.8 Abnormal levels of other serum enzymes; D63.1 Anemia in chronic kidney disease
CPT/HCPCS: 36415; 71046; 80048; 80061; 80076; 80307; 81001; 82553; 82947; 83605; 83690; 83735; 83880; 84443; 84484; 85025; 85379; 85610; 85730; 87040; 87804; 93005; 93970; 94640; 94760; 96361; 96365; 96366; 96372; 96375; 99285; G0238; G0378; J1650; J1815; J2270; J3475; J3490; J7120; G0379

== ENCOUNTER 2019-09-21 21:09 | Observation (INO) | payer MEDICARE, MEDICAID ==
[~2019-09-21] VITALS: Ht 170.2 cm; Wt 106.5 kg
--- NOTE | 2019-09-21 21:44 | PHYS DOC ---
Past History Past Medical History: Anxiety, Arthritis, CAD, Cancer (lung/liver/kidney), CHF, COPD, Diabetes, Hypertension, Schizophrenia, Other Additional Past Medical Histor: PE Past Surgical History: Other Additional Past Surgical Histo: had extensive local I&D of abscesses underneath his arms Smoking: Quit Greater Than 1 Year Alcohol Use: None Drug Use: None General Adult EDM: Chief Complaint: SHORTNESS OF BREATH HPI: HPI: 64-year-old male with past medical history of lung/kidney/liver cancer, significant cardiac history and risk factors, and COPD presents with 2 week history of productive cough with yellow sputum. Reports tonight symptoms became worse with associated dizziness and generalized weakness. Denies leg swelling. Reports night sweats and subjective chills. Reports temperatures he has taken have all been normal and without fever. Denies trauma. Patient with history of recent admission x 2 in August. Initially for generalized weakness/dehydration and then again 3 weeks ago for atypical chest pain. Patient also with history of PE for which he is on Eliquis. Review of Systems: Review of Systems: Constitutional: Denies fever; reports night sweats and subjective chills Eyes: Denies redness or eye pain HENT: Denies nasal congestion or sore throat Respiratory: Reports productive cough and shortness of breath Cardiovascular: Reports chest discomfort; denies palpitations GI: Denies abdominal pain, nausea, or vomiting : Denies dysuria or hematuria Musculoskeletal: Denies back pain or joint pain Integument: Denies rash or skin lesions Neurologic: Denies headache, focal weakness or sensory changes; reports dizziness Complete systems were reviewed and found to be within normal limits, except as documented in this note. Heart Score: HEART Score for Chest Pain: HEART Score for Chest Pain Response (Comments) Value History Moderately Suspicious 1 ECG Normal 0 Age >45 - < 65 1 Risk Factors >3 Risk Factors or Hx CAD 2 Troponin < Normal Limit 0 Total 4 Risk Factors: Risk Factors: DM, Current or recent (<one month) smoker, HTN, HLP, family history of CAD, obesity. Risk Scores: Score 0 - 3: 2.5% MACE over next 6 weeks - Discharge Home Score 4 - 6: 20.3% MACE over next 6 weeks - Admit for Clinical Observation Score 7 - 10: 72.7% MACE over next 6 weeks - Early Invasive Strategies Current Medications: Current Meds: Current Medications Medications (Trade) Dose Ordered Sig/Jamal Start Time Stop Time Status Last Admin Dose Admin Info (Do NOT chart on this entry -- for MONITORING) 1 each PRN DAILY PRN 09/21/19 21:45 09/23/19 21:44 Iohexol (Omnipaque 350 Mg/ml) 100 ml 1X ONCE 09/21/19 22:00 09/21/19 22:01 Sodium Chloride 1,000 ml @ 1,000 mls/hr 1X ONCE 09/21/19 22:00 09/21/19 22:59 Allergies: Allergies: Allergies Coded Allergies Type Severity Reaction Last Updated Verified amoxicillin Allergy Severe Rash 01/25/18 Yes ampicillin Allergy Severe Rash 01/25/18 Yes Penicillins Allergy Intermediate Rash 01/25/18 Yes azithromycin Allergy Intermediate 03/24/18 Yes clindamycin Allergy Intermediate 01/25/18 Yes ibuprofen Allergy Intermediate 11/11/18 Yes Physical Exam: PE: Constitutional: Well developed, well nourished, no acute distress, non-toxic appearance HENT: Normocephalic, atraumatic Eyes: Conjunctiva normal, no discharge Neck: Normal range of motion, no tenderness, supple, no meningeal signs Cardiovascular: Heart rate normal, regular rhythm Lungs & Thorax: Bilateral breath sounds diminished at bases, no wheezing, no respiratory distress Abdomen: Soft, no tenderness, no guarding/rebound tenderness/distention Skin: Warm, dry, no erythema, no rash, pretibial dry skin noted Extremities: No tenderness, ROM intact, no edema Neurologic: Alert and oriented X 3, normal motor and sensory functions, cerebellar function intact, no focal deficits noted Psychologic: Affect normal, judgment normal Current Patient Data: Vital Signs: Vital Signs Date Time Temp Pulse Resp B/P (MAP) Pulse Ox O2 Delivery O2 Flow Rate FiO2 09/21/19 21:13 97.8 100 20 121/65 (83) 99 Nasal Cannula 2.0 EKG: EKG: @2131 NSR at 88bpm, NO ST elevation, RBBB, baseline artifact Radiology/Procedures: Radiology/Procedures: PROCEDURE: CT ANGIOGRAPHY CHEST CT angiography chest with contrast 09/21/2019 9:19 PM INDICATION: Chest pain, dyspnea. History of lung cancer and pulmonary embolus. COMPARISON: CT chest 02/05/2017 TECHNIQUE: Axial CT images of the chest were obtained after the intravenous administration of nonionic contrast. Coronal and sagittal reformats are provided. Maximum intensity projection images of the thoracic vasculature are provided. FINDINGS: There is a 4 mm right thyroid nodule. Central venous catheter terminates in the superior right atrium. There are no pathologically enlarged axillary, mediastinal or hilar lymph nodes. The heart size is within normal limits. No significant pericardial effusion. Thoracic aorta is normal in course and caliber. There is inadequate opacification of the pulmonary arterial system for evaluation of the segmental and subsegmental pulmonary arteries. No definite central, main or lobar filling defects to suggest pulmonary wasn't. Anterior pericardiophrenic soft tissue nodule measures 3.1 x 2.0 cm (series 4, image 90). Is trace right pleural effusion versus pleural thickening. There is bandlike opacity in the right upper lobe which may represent posttreatment related changes from prior malignancy. There is associated volume loss. There is a 10 mm calcified granuloma in the posterior right lung base. Mild centrilobular pulmonary emphysema. No focal consolidative change is visualized to suggest pulmonary infiltrate. No suspicious adrenal nodules. New hypoattenuating lesion within the anterior spleen measures 2.7 cm, indeterminate. No suspicious osseous abnormality. IMPRESSION: Limited evaluation for pulmonary embolism due to inadequate contrast bolus. No definite central, main or lobar pulmonary emboli. Posttreatment related changes are identified in the right upper lobe with bandlike consolidative change most favored represent treatment effect. Residual disease remains in the differential and short-term follow-up would be of benefit. Comparison with any recent imaging may be of benefit. There is a soft tissue nodule in the anterior pericardiophrenic recess measuring 3.1 x 2.0 cm, predominantly substernal. PET CT may be of benefit for further evaluation. Electronically signed by: Juliette Noguera MD (09/21/2019 11:02 PM) [facility] Course & Med Decision Making: Course & Med Decision Making Pertinent Labs and Imaging studies reviewed. (See chart for details) Patient presents via EMS with 2 week history of productive cough and progressive shortness of air. History of lung/kidney/liver cancer, COPD, CHF, CAD, and PE. EKG stable. Labs obtained and posted to chart. WBC/lactic acid WNL. Anemia baseline per [employer] review. D-dimer elevated at 8.25. Rapid influenza negative. Troponin WNL. HEART score 4. Hypomagnesemia addressed. LDH elevated. Cannot fully exclude COVID 19 as patient with limited symptoms: SOA. (Denies fever and cough is productive rather than nonproductive). COVID-19 testing obtained and pending. CT angiogram chest without significant signs of PE or infiltrates. Right upper lung scarring noted likely from prior lung CA with radiation therapy. Given patient's symptoms and significant risk factors, patient requiring admission for further evaluation and treatment. Discussed with Dr. Foster (hospitalist) who is in agreement with admission. Discussed findings and plan with patient, who acknowledges understanding and agreement. Of note: Full PPE utilized by myself with patient including [id number], head cover, face shield, foot covers and gown. Dragon Disclaimer: Dragon Disclaimer: This electronic medical record was generated, in whole or in part, using a voice recognition dictation system. Departure Departure: Impression: Primary Impression: Shortness of breath Additional Impressions: Atypical chest pain Hypomagnesemia Dizziness Disposition: 09 ADMITTED INPATIENT Admitting Physician: Hilton Foster Condition: STABLE Referrals: TERRY CULLEN (PCP) NIHSS - ED NIH Stroke Scale: NIH Stroke Scale Response (Comments) Value Level of Consciousness: 0 Alert/Responsive 0 LOC Questions: 0 Answers both correctly 0 LOC Commands: 0 Performs both tasks 0 Best Gaze: 0 Normal 0 Visual: 0 No visual loss 0 Facial Palsy: 0 Normal, symmetrical 0 Motor - Left Arm 0 No drift 0 Motor - Right Arm 0 No drift 0 Motor - Left Leg 0 No drift 0 Motor: Right Leg 0 No drift 0 Limb Ataxia: 0 Absent 0 Sensory: 0 No loss 0 Best Language: 0 Normal 0 Dysathria: 0 Normal 0 Extinction and Inattention: 0 Normal 0 Total 0 STEWARTFRANCHESCA DO Sep 21, 2019 21:44
[2019-09-21] MEDS ORDERED: CONTRAST GIVEN MC PRN (21:45)
[2019-09-21 21:58] LABS: BASO % 1 % (0-3); EOS # 0.1 x10^3/uL (0.0-0.7); EOS % 1 % (0-3); HEMATOCRIT 26.6 % (39.0-53.0); HEMOGLOBIN 8.7 g/dL (13.0-17.5); LYMPH # 2.4 x10^3/uL (1.0-4.8); LYMPH % 24 % (24-48); MEAN CORPUSCULAR HEMOGLOBIN 31 pg (25-35); MEAN CORPUSCULAR HGB CONC 33 g/dL (31-37); MEAN CORPUSCULAR VOLUME 94 fL (79-100); MONO # 0.8 x10^3/uL (0.0-1.1); MONO % 9 % (0-9); NEUT # 6.6 x10^3uL (1.8-7.7); NEUT % 66 % (31-73); PLATELET COUNT 309 x10^3/uL (140-400); RED BLOOD COUNT 2.83 x10^6/uL (4.30-5.70); RED CELL DISTRIBUTION WIDTH 15.1 % (11.5-14.5)
[2019-09-21] MEDS ORDERED: IOHEXOL 350 MG/ML 100 ML VIAL. IV ONE (22:00)
[2019-09-21] MEDS ORDERED: IV NORMAL SALINE 1,000ML 1,000 ML IV ONE (22:00)
[2019-09-21 22:07] LABS: CALCIUM 9.2 mg/dL (8.5-10.1); CREATININE 2.2 mg/dL (0.7-1.3); GFR 36.8; POTASSIUM 4.7 mmol/L (3.5-5.1)
[2019-09-21 22:16] LABS: INFLUENZA A PATIENT NEGATIVE (NEGATIVE); INFLUENZA B PATIENT NEGATIVE (NEGATIVE)
[2019-09-21 22:24] LABS: ALBUMIN 2.6 g/dL (3.4-5.0); ALBUMIN/GLOBULIN RATIO 0.5 (1.0-1.7); TOTAL BILIRUBIN 0.2 mg/dL (0.2-1.0); TOTAL PROTEIN 7.5 g/dL (6.4-8.2)
[2019-09-21 22:35] LABS: BILIRUBIN,URINE NEG (NEG); CLARITY,URINE CLEAR; COLOR,URINE YELLOW; GLUCOSE,URINE NEG (NEG)
[2019-09-21 22:36] LABS: BACTERIA,URINE 0 /HPF (0-FEW); NITRITE,URINE NEG (NEG); RBC,URINE 0 /HPF (0-2); SQUAMOUS EPITHELIAL CELL,UR FEW /LPF; UROBILINOGEN,URINE 0.2 mg/dL (0.2 mg/dL); WBC,URINE 0 /HPF (0-4)
[2019-09-21] MEDS ORDERED: MAGNESIUM SULFATE 2GM 50 ML IV ONE (22:45)
[2019-09-21] MEDS ORDERED: ASPIRIN 325 MG TABLET PO ONE (23:00)
[2019-09-21] MEDS ORDERED: DEXTROSE 50% 25 GM / 50ML DISP.SYRIN. IV PRN (23:00)
[2019-09-21] MEDS ORDERED: ONDANSETRON PF 4 MG/2 ML VIAL. IVP PRN (23:00)
--- NOTE | 2019-09-21 23:06 | RAD ---
CT angiography chest with contrast 09/21/2019 9:19 PM INDICATION: Chest pain, dyspnea. History of lung cancer and pulmonary embolus. COMPARISON: CT chest 02/05/2017 TECHNIQUE: Axial CT images of the chest were obtained after the intravenous administration of nonionic contrast. Coronal and sagittal reformats are provided. Maximum intensity projection images of the thoracic vasculature are provided. FINDINGS: There is a 4 mm right thyroid nodule. Central venous catheter terminates in the superior right atrium. There are no pathologically enlarged axillary, mediastinal or hilar lymph nodes. The heart size is within normal limits. No significant pericardial effusion. Thoracic aorta is normal in course and caliber. There is inadequate opacification of the pulmonary arterial system for evaluation of the segmental and subsegmental pulmonary arteries. No definite central, main or lobar filling defects to suggest pulmonary wasn't. Anterior pericardiophrenic soft tissue nodule measures 3.1 x 2.0 cm (series 4, image 90). Is trace right pleural effusion versus pleural thickening. There is bandlike opacity in the right upper lobe which may represent posttreatment related changes from prior malignancy. There is associated volume loss. There is a 10 mm calcified granuloma in the posterior right lung base. Mild centrilobular pulmonary emphysema. No focal consolidative change is visualized to suggest pulmonary infiltrate. No suspicious adrenal nodules. New hypoattenuating lesion within the anterior spleen measures 2.7 cm, indeterminate. No suspicious osseous abnormality. IMPRESSION: Limited evaluation for pulmonary embolism due to inadequate contrast bolus. No definite central, main or lobar pulmonary emboli. Posttreatment related changes are identified in the right upper lobe with bandlike consolidative change most favored represent treatment effect. Residual disease remains in the differential and short-term follow-up would be of benefit. Comparison with any recent imaging may be of benefit. There is a soft tissue nodule in the anterior pericardiophrenic recess measuring 3.1 x 2.0 cm, predominantly substernal. PET CT may be of benefit for further evaluation. Electronically signed by: Juliette Noguera MD (09/21/2019 11:02 PM) [facility]
--- NOTE | 2019-09-21 23:08 | EKG ---
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
[2019-09-22 01:17] VITALS: BP 123/64
[2019-09-22] MEDS ORDERED: METO25TA2 PO (02:11)
[2019-09-22 05:00] VITALS: BP 108/61
[2019-09-22] MEDS ORDERED: INSULIN LISPRO 300 UNITS/3 ML VIAL. SQ SCH (08:00)
--- NOTE | 2019-09-22 10:16 | HP ---
ADMIT DATE: 09/21/2019 CHIEF COMPLAINT: Shortness of breath. HISTORY OF PRESENT ILLNESS: The patient is a 64-year-old gentleman well known to us from previous admissions. He has a longstanding history of lung cancer, liver cancer, cardiac history and COPD. He presented to the ED with a 2-week history of productive cough and yellow sputum. Tonight, symptoms became worse, he was dizzy from the coughing, has generalized weakness. He lives alone. He takes his medication supposedly regularly, but we cannot verify that. He had an admission in August with similar episodes of atypical chest pain. He has a history of pulmonary embolus. He is already on therapeutic doses of Eliquis. PAST MEDICAL HISTORY: Significant for coronary artery disease, supposed cancer of the liver, lungs and kidney, primary is unclear. Generalized anxiety, type 2 diabetes, hypertension, schizoaffective disorder, and generalized debilitation. ALLERGIES: MULTIPLE ALLERGIES INCLUDE PENICILLIN, AMOXICILLIN, AMPICILLIN, CLINDAMYCIN, IBUPROFEN AND AZITHROMYCIN. SOCIAL HISTORY: He had been a smoker in the past. No alcohol use. FAMILY HISTORY: Noncontributory. REVIEW OF SYSTEMS: Significant for chronic weakness. He has limited ability to get around. No nausea or vomiting. No hematemesis. No fevers, chills. No exposure to patients with coronavirus. All other systems reviewed and turned to be negative. PHYSICAL EXAMINATION: GENERAL: When I saw him, this is a pleasant gentleman. INITIAL VITAL SIGNS: In the ED showed a blood pressure of 121/65, pulse is 86 and regular. He was afebrile. Oxygen saturation 100% on 2 liters nasal cannula. He has supplemental oxygen at home. HEENT: Head is without trauma. Pupils are reactive. Sclerae nonicteric. Oropharynx is clear. NECK: Supple, no bruits identified. LUNGS: Otherwise clear. CARDIOVASCULAR: Showed regular heart tones. No gallops, no murmurs. Peripheral pulses are palpable and full. ABDOMEN: Soft, scaphoid, nontender, no organomegaly. Bowel sounds are hypoactive. EXTREMITIES: Show no cyanosis. Trace edema was noted. NEUROLOGIC: Focally intact. No deficits. PERTINENT LABORATORY STUDIES: Limited evaluation, CT angiogram was inadequate due to inadequate contrast bolus. No definite central, main or lobar pulmonary emboli is noted. Posttreatment changes are identified in the right upper lobe with band-like consolidation changes, residual treatment effect; however, there is a soft tissue nodule in the anterior pericardial phrenic recess measuring 3 x 2 cm, predominantly substernal. A PET/CT scan would be beneficial, but this can be done as an outpatient. LABORATORY DATA: Hemoglobin is 8.7 g/dL with a white count of 10,000. Cardiac enzymes negative for myocardial necrosis. Nonfasting blood sugar was 86. Lactic acid 1.2. ASSESSMENT: 1. A 64-year-old gentleman with exacerbation of chronic obstructive pulmonary disease. 2. Known history of lung and liver cancer. 3. Incidental finding of a substernal mass. Given his history, this needs to be followed up. 4. Type 2 diabetes. 5. Essential hypertension. 6. Coronary ischemia ruled out. 7. History of pulmonary embolus. PLAN: 1. Observation status overnight. 2. Continue home meds. 3. Nebulizer therapy. 4. As part of the evaluation, the Emergency Room did order a COVID-19 swab for the coronavirus. SHIRLENE PA MD DR: YANIRA/steven JOB#: [id number] / [id number] ADIEL Ling MD
--- NOTE | 2019-09-22 11:26 | DS ---
DATE OF DISCHARGE: 09/22/2019 FINAL DISCHARGE DIAGNOSES: 1. Acute on chronic respiratory failure. 2. Exacerbation of chronic obstructive pulmonary disease. 3. Essential hypertension. 4. History of lung and liver cancer, treated. 5. Type 2 diabetes. 6. Gastroesophageal reflux disease. 7. Dizziness. 8. Generalized debilitation. HISTORY AND PHYSICAL: This is a 64-year-old gentleman admitted through the ED with increasing shortness of breath and nonproductive cough. His workup was fairly negative. He is still on Eliquis for pulmonary embolus in the past. Chest CT scan demonstrated no acute infiltrates or decompensation. He was admitted for further treatment and evaluation. A COVID-19 coronavirus swab was also ordered in the ED. PHYSICAL EXAMINATION: Please see the dictated note. PERTINENT LABORATORY STUDIES: Hemoglobin maintained at 8.7 g/dL, white count 10,000. Chemistry panel unremarkable. Cardiac enzymes negative for myocardial necrosis. A COVID-19 coronavirus swab was still pending at the time of discharge. COURSE IN THE HOSPITAL: He was admitted overnight. He was breathing better. He already has supplemental oxygen. He did not have any further distress. Most of the symptoms are chronic. I explained to him that he would be better served by being out of the hospital without potential exposure to COVID-19 coronavirus. I will notify him of the results when they are available. Therefore, on the next hospital day, the patient was up and ambulating. He was eating well. His lungs were clear and he was ready for discharge. At this time, I recommended continuation of his home meds without any changes including Eliquis as ordered 5 mg b.i.d., Soma as needed, docusate, Neurontin, insulin 7 units b.i.d., insulin Tresiba 20 units daily, metoprolol, nitroglycerin, Protonix, Risperdal, calcium, senna, Januvia, Spiriva, and Synthroid, dose is unchanged. He will followup with his PCP as scheduled. In addition, I notified him of the abnormality on the CT scan with the retrosternal mass measuring 3 x 2 cm. He should have followup CT of the chest as well as potentially a PET scan as an outpatient. I will send these results, try to contact his PCP, Flower Galeas. The patient was then discharged from our hospital in stable condition with explicit instructions and followup care. SHIRLENE PA MD DR: YANIRA/steven JOB#: [id number] / [id number] ADIEL Ling MD, ANGELA PA
== END 2019-09-22 12:20 | disposition home or self-care (01) ==
LOC: ER 21:09 → INTOOBSV 23:00 → 1 SOUTH 23:00
PROVIDERS: ADMIT Hospitalist; ATTEND Hospitalist
DX: J44.1 Chronic obstructive pulmonary disease with (acute) exacerbation (principal); J96.20 Acute and chronic respiratory failure, unspecified whether with hypoxia or hypercapnia; I11.0 Hypertensive heart disease with heart failure; I50.9 Heart failure, unspecified; I25.10 Atherosclerotic heart disease of native coronary artery without angina pectoris; F41.1 Generalized anxiety disorder; F25.9 Schizoaffective disorder, unspecified; E86.0 Dehydration; K21.9 Gastro-esophageal reflux disease without esophagitis; E11.9 Type 2 diabetes mellitus without complications; E83.42 Hypomagnesemia; R42 Dizziness and giddiness; Z85.05 Personal history of malignant neoplasm of liver; Z79.01 Long term (current) use of anticoagulants; Z87.891 Personal history of nicotine dependence; Z85.118 Personal history of other malignant neoplasm of bronchus and lung
CPT/HCPCS: 36415; 71275; 80053; 81001; 82553; 82728; 82947; 83605; 83615; 83735; 83880; 84484; 85025; 85379; 85610; 85730; 87040; 87635; 87804; 93005; 96361; 96365; 96366; 99285; G0378; G0379; J1815; J3475; Q9967; 87205; J7030

== ENCOUNTER 2019-10-27 18:09 | Observation (INO) | payer MEDICARE, MEDICAID ==
[~2019-10-27] VITALS: Ht 170.2 cm; Wt 99.8 kg
[~2019-10-27 18:09] MED LIST changes: +METO25TA2 PO
[2019-10-27] MEDS ORDERED: ASPIRIN 325 MG TABLET PO ONE (18:15)
--- NOTE | 2019-10-27 18:24 | EKG ---
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
[2019-10-27] MEDS ORDERED: CONTRAST GIVEN MC PRN (18:30)
[2019-10-27] MEDS ORDERED: IOHEXOL 350 MG/ML 100 ML VIAL. IV ONE (18:30)
[2019-10-27 18:47] LABS: BASO # 0.1 x10^3/uL (0.0-0.2); BASO % 1 % (0-3); EOS # 0.1 x10^3/uL (0.0-0.7); EOS % 1 % (0-3); HEMATOCRIT 26.7 % (39.0-53.0); HEMOGLOBIN 8.8 g/dL (13.0-17.5); LYMPH # 1.7 x10^3/uL (1.0-4.8); LYMPH % 19 % (24-48); MEAN CORPUSCULAR HEMOGLOBIN 31 pg (25-35); MEAN CORPUSCULAR HGB CONC 33 g/dL (31-37); MEAN CORPUSCULAR VOLUME 95 fL (79-100); MONO # 0.9 x10^3/uL (0.0-1.1); MONO % 11 % (0-9); NEUT # 6.1 x10^3uL (1.8-7.7); NEUT % 69 % (31-73); PLATELET COUNT 426 x10^3/uL (140-400); RED BLOOD COUNT 2.83 x10^6/uL (4.30-5.70); RED CELL DISTRIBUTION WIDTH 16.1 % (11.5-14.5)
--- NOTE | 2019-10-27 18:53 | PHYS DOC ---
Past History Past Medical History: Anxiety, Arthritis, CAD, Cancer, CHF, COPD, Diabetes, Hypertension, Schizophrenia, Other Additional Past Medical Histor: PE Past Surgical History: Other Additional Past Surgical Histo: had extensive local I&D of abscesses underneath his arms Smoking: Quit Greater Than 1 Year Alcohol Use: None Drug Use: None General Adult EDM: Chief Complaint: CHEST PAIN HPI: HPI: 64-year-old male with past medical history of COPD and CHF presents via EMS with report of chest pain and shortness of air which is been ongoing for the past 2 weeks. Patient reports has become worse recently. Reports associated productive cough with yellow sputum. Denies fever or chills. Denies trauma. Patient does report history of prior PE. Reports is currently on Eliquis blood thinners. Patient also reports cardiac risk factors of high blood pressure, high cholesterol, diabetes, and former smoking. Reports some leg swelling but denies calf pain. Review of Systems: Review of Systems: Constitutional: Denies fever or chills Eyes: Denies redness or eye pain HENT: Denies nasal congestion or sore throat Respiratory: Reports productive cough and shortness of breath Cardiovascular: Reports chest pain; denies palpitations GI: Denies abdominal pain, nausea, or vomiting : Denies dysuria or hematuria Musculoskeletal: Denies back pain or extremity pain Integument: Denies rash or skin lesions Neurologic: Denies headache, focal weakness or sensory changes Complete systems were reviewed and found to be within normal limits, except as documented in this note. Heart Score: HEART Score for Chest Pain: HEART Score for Chest Pain Response (Comments) Value History Moderately Suspicious 1 ECG Normal 0 Age >45 - < 65 1 Risk Factors >3 Risk Factors or Hx CAD 2 Troponin < Normal Limit 0 Total 4 Risk Factors: Risk Factors: DM, Current or recent (<one month) smoker, HTN, HLP, family history of CAD, obesity. Risk Scores: Score 0 - 3: 2.5% MACE over next 6 weeks - Discharge Home Score 4 - 6: 20.3% MACE over next 6 weeks - Admit for Clinical Observation Score 7 - 10: 72.7% MACE over next 6 weeks - Early Invasive Strategies Current Medications: Current Meds: Current Medications Medications (Trade) Dose Ordered Sig/Jamal Start Time Stop Time Status Last Admin Dose Admin Aspirin (Eyad Aspirin) 325 mg 1X ONCE 10/27/19 18:15 10/27/19 18:26 DC 10/27/19 18:15 325 MG Info (Do NOT chart on this entry -- for MONITORING) 1 each PRN DAILY PRN 10/27/19 18:30 10/29/19 18:29 Iohexol (Omnipaque 350 Mg/ml) 100 ml 1X ONCE 10/27/19 18:30 10/27/19 18:31 DC Allergies: Allergies: Allergies Coded Allergies Type Severity Reaction Last Updated Verified amoxicillin Allergy Severe Rash 01/25/18 Yes ampicillin Allergy Severe Rash 01/25/18 Yes Penicillins Allergy Intermediate Rash 01/25/18 Yes azithromycin Allergy Intermediate 03/24/18 Yes clindamycin Allergy Intermediate 01/25/18 Yes ibuprofen Allergy Intermediate 11/11/18 Yes Physical Exam: PE: Constitutional: Well developed, well nourished, no acute distress, non-toxic appearance HENT: Normocephalic, atraumatic, oropharynx moist Eyes: Conjunctiva normal, no discharge Neck: Normal range of motion, no tenderness, supple Cardiovascular: Heart rate normal, regular rhythm Lungs & Thorax: Bilateral breath sounds clear to auscultation, no wheezing Abdomen: Soft, no tenderness Skin: Warm, dry, no erythema, no rash Back: No tenderness, no CVA tenderness Extremities: No tenderness, ROM intact, 1+ BLE edema Neurologic: Alert and oriented X 3, no focal deficits noted Psychologic: Affect flat, judgment normal Current Patient Data: Labs: Laboratory Tests Test 10/27/19 18:24 White Blood Count 9.0 x10^3/uL (4.0-11.0) Red Blood Count 2.83 x10^6/uL (4.30-5.70) L Hemoglobin 8.8 g/dL (13.0-17.5) L Hematocrit 26.7 % (39.0-53.0) L Mean Corpuscular Volume 95 fL (79-100) Mean Corpuscular Hemoglobin 31 pg (25-35) Mean Corpuscular Hemoglobin Concent 33 g/dL (31-37) Red Cell Distribution Width 16.1 % (11.5-14.5) H Platelet Count 426 x10^3/uL (140-400) H Neutrophils (%) (Auto) 69 % (31-73) Lymphocytes (%) (Auto) 19 % (24-48) L Monocytes (%) (Auto) 11 % (0-9) H Eosinophils (%) (Auto) 1 % (0-3) Basophils (%) (Auto) 1 % (0-3) Neutrophils # (Auto) 6.1 x10^3uL (1.8-7.7) Lymphocytes # (Auto) 1.7 x10^3/uL (1.0-4.8) Monocytes # (Auto) 0.9 x10^3/uL (0.0-1.1) Eosinophils # (Auto) 0.1 x10^3/uL (0.0-0.7) Basophils # (Auto) 0.1 x10^3/uL (0.0-0.2) Vital Signs: Vital Signs Date Time Temp Pulse Resp B/P (MAP) Pulse Ox O2 Delivery O2 Flow Rate FiO2 10/27/19 18:15 98.7 106 18 103/74 (84) 97 Nasal Cannula 2.0 EKG: EKG: @1818 Sinus tachycardia at 104bpm, NO ST elevation, RBBB Radiology/Procedures: Radiology/Procedures: PROCEDURE: CHEST AP ONLY Exam: Chest one view INDICATION: Chest pain TECHNIQUE: Frontal view of the chest Comparisons: 09/26/2019 FINDINGS: Right chest wall port similar position. The cardiomediastinal silhouette and pulmonary vessels are within normal limits. Post treatment changes in the right upper lung again seen similar to prior exam. No pleural effusion. IMPRESSION: No acute pulmonary process identified. Electronically signed by: Raya Crandall MD (10/27/2019 8:48 PM) [id number] Course & Med Decision Making: Course & Med Decision Making Pertinent Labs and Imaging studies reviewed. (See chart for details) Patient with past medical history of COPD and CHF with significant cardiac risk factors presents with chest pain and shortness of air. Reports associated productive cough. Patient also with history of prior PE for which patient is currently on Eliquis. Afebrile. Sats stable. EKG stable. Labs obtained and posted to chart. Anemia and renal insufficiency baseline per [facility] review. Initial troponin within normal limits. BMP just less than 2000. Chest x-ray without acute process. Bumex provided. Hypomagnesemia addressed. D-dimer elevated. Unable to obtain CTA chest given decreased GFR. VQ scan therefore pending. HEART score 4. Patient requiring admission for further evaluation and treatment. Discussed with Dr. Harris (hospitalist) who is in agreement with admission. Discussed findings and plan with patient, who acknowledges understanding and agreement. Julia Disclaimer: Julia Disclaimer: This electronic medical record was generated, in whole or in part, using a voice recognition dictation system. Departure Departure: Impression: Primary Impression: Chest pain Qualified Codes: R07.9 - Chest pain, unspecified Additional Impressions: CHF (congestive heart failure) Qualified Codes: I50.9 - Heart failure, unspecified Hypomagnesemia Elevated d-dimer Disposition: ADMITTED INPATIENT Admitting Physician: Lance Harris Condition: STABLE Referrals: TERRY CULLEN (PCP) FRANCHESCA STEWART DO October 27, 2019 18:53
[2019-10-27 20:22] LABS: CALCIUM 9.4 mg/dL (8.5-10.1); CREATININE 2.4 mg/dL (0.7-1.3); GFR 33.2; POTASSIUM 4.4 mmol/L (3.5-5.1)
[2019-10-27 20:39] LABS: ALBUMIN 2.6 g/dL (3.4-5.0); ALBUMIN/GLOBULIN RATIO 0.7 (1.0-1.7); MAGNESIUM 1.6 mg/dL (1.8-2.4); TOTAL BILIRUBIN 0.5 mg/dL (0.2-1.0); TOTAL PROTEIN 6.6 g/dL (6.4-8.2)
--- NOTE | 2019-10-27 20:51 | RAD ---
Exam: Chest one view INDICATION: Chest pain TECHNIQUE: Frontal view of the chest Comparisons: 09/26/2019 FINDINGS: Right chest wall port similar position. The cardiomediastinal silhouette and pulmonary vessels are within normal limits. Post treatment changes in the right upper lung again seen similar to prior exam. No pleural effusion. IMPRESSION: No acute pulmonary process identified. Electronically signed by: Raya Crandall MD (10/27/2019 8:48 PM) [id number]
[2019-10-27] MEDS ORDERED: ONDANSETRON PF 4 MG/2 ML VIAL. IVP PRN (21:15)
[2019-10-27] MEDS ORDERED: DEXTROSE 50% 25 GM / 50ML DISP.SYRIN. IV PRN (21:15)
[2019-10-27] MEDS ORDERED: BUMETANIDE 1 MG/4 ML VIAL. IVP ONE (21:30)
[2019-10-27] MEDS ORDERED: MAGNESIUM SULFATE 2GM 50 ML IV ONE (21:30)
[2019-10-27 22:37] VITALS: BP 99/72
--- NOTE | 2019-10-28 00:19 | RAD ---
Perfusion only lung scan 10/27/2019 CLINICAL HISTORY: Chest pain, shortness of breath, elevated d-dimer. History of previous pulmonary embolism. TECHNIQUE: After the intravenous administration of 5.5 mCi of technetium 99m MAA, perfusion images of both lungs were obtained using the gamma camera. FINDINGS: Comparison is made to a portable chest radiograph performed earlier today. This demonstrates patchy subsegmental atelectasis involving the left lower lobe and volume loss of the right lung. Additional comparison is made to a previous lung scan dated 03/23/2018. Diminished perfusion to the right lung relative to the left is again noted. No perfusion defect is seen. IMPRESSION: No perfusion defect is seen. Electronically signed by: Javier Hurst MD (10/28/2019 12:16 AM) [id number]
[2019-10-28 05:17] VITALS: BP 135/83
[2019-10-28] MEDS: INSULIN LISPRO 300 UNITS/3 ML VIAL. SQ SCH ×4 (08:00→17:00)
[2019-10-28] MEDS: APIXABAN 5 MG TABLET. PO SCH ×2 (09:37→21:15)
[2019-10-28] MEDS: METOPROLOL SUCC 24HR ER 25 MG TAB.ER.24H. PO SCH ×2 (09:37→21:16)
[2019-10-28] MEDS: PANTOPRAZOLE 40 MG TABLET. PO SCH (09:37)
[2019-10-28 10:53] VITALS: BP 115/70
[2019-10-28] MEDS ORDERED: ANTI-COAG MONITOR BY PHARMACY. MC PRN (12:00)
--- NOTE | 2019-10-28 12:11 | PDOC2 ---
CONSULT Date of Admission DATE: 10/28/19 TIME: 12:08 Reason for Consult: Chest pain Referring Physician: Dr. Harris Chief Complaint Chest pain and shortness of breath Source: Chart review, Patient Problem List Problems Medical Problems: (1) Chest pain Status: Acute (2) CHF (congestive heart failure) Status: Acute (3) Elevated d-dimer Status: Acute (4) Hypomagnesemia Status: Acute History of Present Illness 64-year-old male with history of lung cancer and pulmonary embolism on long-term anticoagulation with Eliquis presented with chest and shoulder pain that he described as sharp in nature, 7/10 severity and also shortness of breath that has been going on for 2 weeks. He also complained of cough productive of yellowish sputum but denied any orthopnea/PND, palpitations or syncope. He claims compliance with medications. He was apparently told that he had left ventricular enlargement and usually sees Vashti Akhtar with [facility] cardiology. Past Medical History Hypertension Hyperlipidemia Diabetes mellitus type 2 Small cell lung cancer status post chemotherapy Pulmonary embolism on long-term anticoagulation with Eliquis COPD Schizophrenia Anemia Peripheral neuropathy Pneumothorax after lung biopsy Past Surgical History Lung biopsy Chest tube placement for pneumothorax Lymph node biopsy Cyst removal Family History Cancer, diabetes Social History Patient quit smoking in 2016 after 40 pack years smoking history. He denied any alcohol or drug use. Current Medications Current Medications Aspirin (Eyad Aspirin) 325 mg 1X ONCE PO Last administered on 10/27/19at 18:15; Start 10/27/19 at 18:15; Stop 10/27/19 at 18:26; Status DC Iohexol (Omnipaque 350 Mg/ml) 100 ml 1X ONCE IV ; Start 10/27/19 at 18:30; Stop 10/27/19 at 18:31; Status DC Info (Do NOT chart on this entry -- for MONITORING) 1 each PRN DAILY PRN MC SEE COMMENTS; Start 10/27/19 at 18:30; Stop 10/29/19 at 18:29 Fentanyl Citrate (Fentanyl 2ml Vial) 75 mcg 1X ONCE IV Last administered on 10/27/19at 19:30; Start 10/27/19 at 19:30; Stop 10/27/19 at 19:31; Status DC Bumetanide (Bumex) 0.5 mg 1X ONCE IVP Last administered on 10/27/19at 22:46; Start 10/27/19 at 21:30; Stop 10/27/19 at 21:31; Status DC Magnesium Sulfate 50 ml @ 25 mls/hr 1X ONCE IV Last administered on 10/27/19at 21:30; Start 10/27/19 at 21:30; Stop 10/27/19 at 23:29; Status DC Ondansetron HCl (Zofran) 4 mg PRN Q4HRS PRN IVP NAUSEA/VOMITING; Start 10/27/19 at 21:15; Stop 10/28/19 at 21:14 Fentanyl Citrate (Fentanyl 2ml Vial) 50 mcg PRN Q2HR PRN IVP PAIN Last administered on 10/28/19at 08:37; Start 10/27/19 at 21:15; Stop 10/28/19 at 21:14 Insulin Human Lispro (HumaLOG) 0-5 UNITS TIDWMEALS SQ ; Start 10/28/19 at 08:00 Dextrose (Dextrose 50%-Water Syringe) 12.5 gm PRN Q15MIN PRN IV SEE COMMENTS; Start 10/27/19 at 21:15 Apixaban (Eliquis) 5 mg BID PO Last administered on 10/28/19at 09:37; Start 10/28/19 at 09:30 Metoprolol Succinate (Toprol Xl) 12.5 mg BID PO Last administered on 10/28/19at 09:37; Start 10/28/19 at 09:30 Pantoprazole Sodium (Protonix) 40 mg DAILY PO Last administered on 10/28/19at 09:37; Start 10/28/19 at 09:30 Info (Anti-Coagulation Monitoring By Pharmacy) 1 each PRN DAILY PRN MC SEE COMMENTS; Start 10/28/19 at 12:00 Active Scripts Active Reported Toprol Xl (Metoprolol Succinate) 25 Mg Tab.er.24h 0.5 Tab PO BID 30 Days Colace (Docusate Sodium) 100 Mg Capsule 2 Cap PO BID 30 Days Senna Laxative (Sennosides) 8.6 Mg Tablet 1 Tab PO PRN TID PRN 30 Days [Synthroid] PO DAILY06 NITROGLYCERIN SubLingual (Nitroglycerin) 0.4 Mg Tab.subl 1 Tab SL [id number] MAY REPEAT X 2 DOSES IF NEEDED NOT GIVEN TODAY NEXT DOSE DUE: DATE: TODAY TIME: IF AND WHEN NEEDED Novolog Flexpen (Insulin Aspart) 100 Unit/1 Ml Insuln.pen 7 Unit SQ BID NOT GIVEN TODAY NEXT DOSE DUE: DATE: TODAY TIME: WITH DINNER IF NEEDED Tresiba Flextouch U-200 (Insulin Degludec) 200 Unit/1 Ml Insuln.pen 20 Unit SQ AFTRNOON LAST DOSE GIVEN: DATE: YESTERDAY TIME: AT BEDTIME NEXT DOSE DUE: DATE: TODAY TIME: AT BEDTIME Eliquis (Apixaban) 5 Mg Tablet 5 Mg PO BID LAST DOSE GIVEN: DATE: TODAY TIME: AM NEXT DOSE DUE: DATE: TODAY TIME: PM Risperdal (Risperidone) 1 Mg Tablet 4 Tab PO QHS LAST DOSE GIVEN: DATE: YESTERDAY TIME: PM NEXT DOSE DUE: DATE: TODAY TIME: PM Crestor (Rosuvastatin Calcium) 5 Mg Tablet 1 Tab PO QMWF LAST DOSE GIVEN: DATE: YESTER TIME: AM NEXT DOSE DUE: DATE: TOMORROW TIME: AM Januvia (Sitagliptin Phosphate) 100 Mg Tablet 100 Mg PO DAILY LAST DOSE GIVEN: DATE: TODAY TIME: WITH BREAKFAST NEXT DOSE DUE: DATE: TOMORROW TIME: WITH BREAKFAST Spiriva (Tiotropium [place]) 18 Mcg Cap.w.dev 2 Puff IH DAILY NOT GIVEN IN THE HOSPITAL NEXT DOSE DUE: DATE: RESTART TODAY TIME: WHEN YOU GET HOME Protonix (Pantoprazole Sodium) 40 Mg Tablet.dr 1 Tab PO DAILY LAST DOSE GIVEN: DATE: TODAY TIME: AM NEXT DOSE DUE: DATE: TOMORROW TIME: AM Soma (Carisoprodol) 350 Mg Tablet 350 Mg PO TID PRN NOT GIVEN TODAY NEXT DOSE DUE: DATE: TODAY TIME: IF AND WHEN NEEDED Neurontin (Gabapentin) 600 Mg Tablet 600 Mg PO HS PRN LAST DOSE GIVEN: DATE: TODAY TIME: AFTERNOON NEXT DOSE DUE: DATE: TODAY TIME: PM Allergies: Coded Allergies: amoxicillin (Verified Allergy, Severe, Rash, 01/25/18) ampicillin (Verified Allergy, Severe, Rash, 01/25/18) Penicillins (Verified Allergy, Intermediate, Rash, 01/25/18) and ear pain azithromycin (Verified Allergy, Intermediate, 03/24/18) clindamycin (Verified Allergy, Intermediate, 01/25/18) ibuprofen (Verified Allergy, Intermediate, 11/11/18) PSYCHOLOGICAL ROS: No: Hallucinations Eyes: No: Loss of vision HEENT: No: Epistaxis Respiratory: YES: Shortness of breath; No: Hemoptysis Cardiovascular: yes: Chest Pain; No: Palpitations Gastrointestinal: No: Vomiting, Diarrhea Genitourinary: No: Henaturia Neurological: No: Seizures Skin: No: Rash General: Alert, Oriented X3 HEENT: Atraumatic Lungs: Clear to auscultation Heart: Regular rate Abdomen: Soft Extremities: No edema Psych/Mental Status: Mood NL VITALS Vital Signs Date Time Temp Pulse Resp B/P (MAP) Pulse Ox O2 Delivery O2 Flow Rate FiO2 10/28/19 10:53 98.4 115 20 115/70 (85) 94 Nasal Cannula 2.0 Labs Laboratory Tests Test 10/27/19 18:24 10/27/19 19:57 10/27/19 22:28 10/28/19 00:25 White Blood Count 9.0 x10^3/uL (4.0-11.0) Red Blood Count 2.83 x10^6/uL (4.30-5.70) Hemoglobin 8.8 g/dL (13.0-17.5) Hematocrit 26.7 % (39.0-53.0) Mean Corpuscular Volume 95 fL (79-100) Mean Corpuscular Hemoglobin 31 pg (25-35) Mean Corpuscular Hemoglobin Concent 33 g/dL (31-37) Red Cell Distribution Width 16.1 % (11.5-14.5) Platelet Count 426 x10^3/uL (140-400) Neutrophils (%) (Auto) 69 % (31-73) Lymphocytes (%) (Auto) 19 % (24-48) Monocytes (%) (Auto) 11 % (0-9) Eosinophils (%) (Auto) 1 % (0-3) Basophils (%) (Auto) 1 % (0-3) Neutrophils # (Auto) 6.1 x10^3uL (1.8-7.7) Lymphocytes # (Auto) 1.7 x10^3/uL (1.0-4.8) Monocytes # (Auto) 0.9 x10^3/uL (0.0-1.1) Eosinophils # (Auto) 0.1 x10^3/uL (0.0-0.7) Basophils # (Auto) 0.1 x10^3/uL (0.0-0.2) Prothrombin Time 12.3 SEC (9.4-11.4) Prothromb Time International Ratio 1.2 (0.9-1.1) Activated Partial Thromboplast Time 28 SEC (23-33) D-Dimer (Mary) 8.79 mg/L (0.00-0.50) Sodium Level 136 mmol/L (136-145) Potassium Level 4.4 mmol/L (3.5-5.1) Chloride Level 98 mmol/L (98-107) Carbon Dioxide Level 26 mmol/L (21-32) Anion Gap 12 (6-14) Blood Urea Nitrogen 30 mg/dL (8-26) Creatinine 2.4 mg/dL (0.7-1.3) Estimated GFR (Cockcroft-Gault) 33.2 BUN/Creatinine Ratio 13 (6-20) Glucose Level 83 mg/dL (70-99) Calcium Level 9.4 mg/dL (8.5-10.1) Magnesium Level 1.6 mg/dL (1.8-2.4) Total Bilirubin 0.5 mg/dL (0.2-1.0) Aspartate Amino Transf (AST/SGOT) 103 U/L (15-37) Alanine Aminotransferase (ALT/SGPT) 40 U/L (16-63) Alkaline Phosphatase 240 U/L (46-116) Creatine Kinase 153 U/L (39-308) Creatine Kinase MB (Mass) 2.7 ng/mL (0.0-3.6) Creatine Kinase MB Relative Index 1.8 % (0-4) Troponin I Quantitative < 0.017 ng/mL (0-0.055) < 0.017 ng/mL (0-0.055) OJ-[id number]-Type Natriuretic Peptide 1986 pg/mL (0-124) Total Protein 6.6 g/dL (6.4-8.2) Albumin 2.6 g/dL (3.4-5.0) Albumin/Globulin Ratio 0.7 (1.0-1.7) Lipase 378 U/L (73-393) Glucose (Fingerstick) 82 mg/dL (70-99) Test 10/28/19 03:20 10/28/19 06:06 10/28/19 07:37 10/28/19 12:00 Troponin I Quantitative < 0.017 ng/mL (0-0.055) Glucose (Fingerstick) 95 mg/dL (70-99) 116 mg/dL (70-99) 119 mg/dL (70-99) Assessment/Plan 1. Chest pain with atypical features. Myocardial infarction has been ruled out. We will obtain records from primary [facility] office regarding any recent ischemic work-up. Recommend outpatient echo and MPI if he did not get these done recently. 2. Mild acute on chronic diastolic heart failure. Patient received a dose of Bumex in ED and is currently better compensated. Start low-dose Lasix orally. 3. h/o pulmonary embolism: On Eliquis for long-term anticoagulation. VQ scan negative for any acute PE. 4. Hypertension: Controlled 5. Hyperlipidemia: Continue statins 6. Diabetes mellitus type 2: Treat per IM Thank you for your consultation REYNA CAMPUZANO MD October 28, 2019 12:11
[2019-10-28] MEDS: LIDOCAINE (700MG/PATCH) PATCH. TD SCH (14:07)
[2019-10-28] MEDS ORDERED: SENNOSIDES 8.6 MG TABLET PO PRN (14:15)
[2019-10-28] MEDS ORDERED: CARISOPRODOL 350 MG TABLET PO PRN (14:15)
--- NOTE | 2019-10-28 14:51 | HP ---
ADMIT DATE: 10/27/2019 HISTORY OF PRESENT ILLNESS: The patient is a 64-year-old -[place] male patient who presented to the Emergency Room complaining of chest pain. He also complained of shortness of breath that has been ongoing for the past 2 weeks. He reports that he become worse recently. The cough is associated with yellowish sputum; however, he denied any fever or chills. Denied any trauma. Does report history of PE, but he is already on Eliquis, has multiple risk factors for coronary artery disease and therefore his sets of cardiac enzyme showed troponin less than 0.017. His D-dimer was extremely high at 8.79, however, is already on Eliquis and given his impaired kidney function, CT angio of the chest could not be done and therefore, he was admitted due to 2 more sets of cardiac enzyme and to arrange for him to have a V/Q scan. PAST MEDICAL HISTORY: Significant for hypertension, hyperlipidemia, history of small lung cancer in the upper lobe, diagnosed in 2018. He is status post chemotherapy. He continues to follow with Dr. Spann and the patient has multiple other medical problems including a pulmonary embolism for which he is on Eliquis; COPD, on oxygen; peripheral neuropathy, anemia of chronic disease, schizophrenia, history of pneumothorax after biopsy about a year ago. PAST SURGICAL HISTORY: Significant for lung biopsy, chest tube placement for pneumothorax after lung biopsy. He had a colonoscopy, lymph node biopsy, and cyst removal. ALLERGIES: HE IS ALLERGIC TO PENICILLIN, AMOXICILLIN, AZITHROMYCIN, AND CLINDAMYCIN. FAMILY HISTORY: He has 2 brothers, both are younger. The youngest brother has prostate cancer. One sister has lung cancer. The other has type 2 diabetes. His father at the age of 62 because of lung cancer and his mother at the age of 73 because of lung cancer. SOCIAL HISTORY: He is single. He apparently is and lives alone. He has 3 biological children and one stepson. He quit smoking on 05/31/2016. He used to smoke a pack a day and smoked for almost 40 years. He does not drink alcohol or use any recreational drugs. He is currently on disability. He was in [employer] worked at [employer] and many other jobs. MEDICATIONS: He is currently on following medications: He is on ipratropium bromide 2 puffs daily, Soma 350 mg 3 times a day, apixaban 5 mg twice a day, Crestor 5 mg Thursday, Thursday, Thursday; nitroglycerin 0.4 mg sublingually every 5 minutes x 3. He is on metoprolol succinate 25 mg, he takes half a tablet twice a day; gabapentin 600 mg at bedtime; risperidone 4 mg at bedtime; Colace 100 mg capsule, he takes 2 capsules twice a day; senna 1 tablet 3 times a day; Protonix 40 mg once a day; sitagliptin for Januvia 100 mg once a day and he is on NovoLog insulin 7 units subcutaneously twice a day. He is on Tresiba FlexTouch 20 units subcutaneously and Synthroid daily. PHYSICAL EXAMINATION: GENERAL: On arrival to the Emergency Room, he looked well and was clearly in no apparent respiratory distress. No pallor, jaundice, cyanosis or thyromegaly. No jugular venous distention. No lower limb edema. VITAL SIGNS: His heart rate was 106, blood pressure was 103/74, temperature was 98.7, respiratory rate was 18 and oxygen saturation was 97% on 2 liters of oxygen. HEAD, EYES, EARS, NOSE AND THROAT: Showed normocephalic, atraumatic. NECK: Supple. HEART: Showed normal first and second heart sounds. No gallop, rub or murmur. CHEST: Clear to auscultation. No crepitation or rhonchi. ABDOMEN: Distended, soft, nontender. No guarding or rigidity. No organomegaly. All hernial orifice intact. Bowel sounds normal. NEUROLOGIC: He is awake, alert, responding appropriately. All cranial nerves intact. EXTREMITIES: He moves extremities without difficulty. LABORATORY DATA: His lab works at the Emergency Room showed a white cell count of 9000, hemoglobin 8.8, hematocrit 26.7, MCV 95, and platelet count of 126,000 with normal manual differential. His chemistry showed a serum sodium 136, potassium 4.4, chloride 98, bicarbonate 26, anion gap of 12, BUN 30, creatinine 2.4, estimated GFR was 33 mL per minute, his glucose was 83, calcium was 9.4, magnesium was 1.6. Total bilirubin and ALT are normal. AST and alkaline phosphatase slightly elevated. His beta natriuretic peptide was 1986. Total protein was 6.6, albumin was 2.6 and lipase was 378. His prothrombin time was 12.3, INR 1.2, APTT was 28. His D-dimer was elevated at 8.79. Has had a chest x-ray, which showed that the right chest wall port in the similar position, he had cardiomediastinal silhouette and pulmonary vessels are within normal limits, status post treatment changes in the right upper lung, again seen similar to prior exam, no pleural effusion. Given his elevated D-dimer and the fact that he has impaired kidney function, CT angio of the chest could not be done and therefore he has had a V/Q scan, which showed that patchy subsegmental atelectasis involving the left lower lobe and volume loss of the right lung, diminished perfusion in the right lung, relative to the left is again noted. No perfusion defect is seen. ASSESSMENT AND PLAN: The patient was admitted to do 2 more sets of cardiac enzyme and to consult the cardiology team. Meanwhile, we have continued all his medication. He did receive Bumex IV Emergency Room and did receive magnesium sulfate for his hypomagnesemia. ADIEL JACKSON MD DR: MADELAINE/steven JOB#: [id number] / [id number]
[2019-10-28 15:51] VITALS: BP 107/75
[2019-10-28] MEDS ORDERED: ATORVASTATIN CALCIUM 20 MG TABLET PO SCH (16:00)
[2019-10-28] MEDS: IPRATRPIUM/ALBUTEROL 0.5/2.5MG 3 ML NEBU. NEB SCH ×2 (16:04→20:41)
[2019-10-28] MEDS: INSULIN GLARGINE SYRINGE. SQ SCH (16:37)
--- NOTE | 2019-10-28 19:19 | PN ---
DATE: 10/28/2019 SUBJECTIVE: The patient was admitted yesterday with shortness of breath and chest pain. His D-dimer was elevated, so he had a V/Q scan, which ruled out pulmonary embolism and he is already on Eliquis. He has 3 sets of cardiac enzymes that ruled out myocardial infarction, all the troponin were less than 0.017 and he was seen in consultation by the Cardiology team as his chest pain was fairly atypical and acute myocardial infarction was ruled out. The rn manager recommended obtaining the records from primary rn manager's office regarding any recent ischemic workup. Otherwise, he could have an outpatient echo and MVI. He get these done recently. He was diagnosed with mild acute on chronic diastolic congestive heart failure, treated with Bumex in the Emergency Room. When I saw him this afternoon, the patient continued to complain of shortness of breath and pains all over, particularly his chest, neck and right shoulder. PHYSICAL EXAMINATION: GENERAL: When I examined him this afternoon, he looked somewhat pale, but no jaundice, cyanosis or thyromegaly. No jugular venous distention. No lower limb edema. VITAL SIGNS: His heart rate was 115, blood pressure was 115/70, temperature was 98.4, respiratory rate 20, and oxygen saturation was 94% on 2 liters of oxygen. HEAD, EYES, EARS, NOSE AND THROAT: Showed normocephalic, atraumatic. NECK: Supple. HEART: Showed normal first and second heart sounds with no gallop, rub or murmur. CHEST: Clear to auscultation. No crepitation or rhonchi. ABDOMEN: Distended, soft, nontender. No guarding or rigidity. No organomegaly. All hernial orifice intact. Bowel sounds normal. NEUROLOGIC: He was awake, alert, responding appropriately. All cranial nerves are intact. He moves extremities without difficulty. LABORATORY DATA: Her lab work this morning showed that he has 2 more sets of cardiac enzymes that showed troponin to be less than 0.017. His blood sugar has been fairly stable. PLAN: To do total body bone scan. However, as he had V/Q scan done yesterday, this cannot be done today. I recommended Lidoderm patches to his right side of the neck and right shoulder. I will monitor him overnight and see how he does. He is reluctant to take any narcotics. He is already scheduled for a PET scan next month by Dr. Spann. We will continue with all his medication. I will repeat all his labs tomorrow and if he remains stable, we should be able to discharge him home. ADIEL JACKSON MD DR: MADELAINE/steven JOB#: [id number] / [id number]
[2019-10-28 19:30] VITALS: BP 114/76
[2019-10-28] MEDS ORDERED: GABAPENTIN 300 MG CAPSULE. PO PRN (21:00)
[2019-10-28] MEDS ORDERED: risperiDONE 2 MG TABLET. PO SCH (21:00)
[2019-10-28] MEDS: DOCUSATE SODIUM 100 MG CAPSULE PO SCH (21:15)
[2019-10-28 23:40] VITALS: BP 108/75
[2019-10-29] MEDS: IPRATRPIUM/ALBUTEROL 0.5/2.5MG 3 ML NEBU. NEB SCH ×2 (05:26→10:15)
[2019-10-29 06:03] VITALS: BP 109/75
[2019-10-29 06:42] LABS: C REACTIVE PROTEIN 172.6 mg/L (0-3.3); CALCIUM 9.6 mg/dL (8.5-10.1); CREATININE 2.4 mg/dL (0.7-1.3); GFR 33.2; POTASSIUM 4.2 mmol/L (3.5-5.1)
[2019-10-29] MEDS: INSULIN LISPRO 300 UNITS/3 ML VIAL. SQ SCH ×3 (08:00→11:29)
[2019-10-29] MEDS: DOCUSATE SODIUM 100 MG CAPSULE PO SCH (08:07)
[2019-10-29] MEDS: PANTOPRAZOLE 40 MG TABLET. PO SCH (08:07)
[2019-10-29] MEDS: APIXABAN 5 MG TABLET. PO SCH (08:07)
[2019-10-29] MEDS: METOPROLOL SUCC 24HR ER 25 MG TAB.ER.24H. PO SCH (08:08)
[2019-10-29] MEDS: LIDOCAINE (700MG/PATCH) PATCH. TD SCH (08:08)
[2019-10-29] MEDS ORDERED: FUROSEMIDE 20 MG TABLET PO SCH (09:00)
[2019-10-29] MEDS ORDERED: LINAGLIPTIN 5 MG TABLET PO SCH (09:00)
--- NOTE | 2019-10-29 09:38 | EKG ---
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
[2019-10-29] MEDS: INSULIN GLARGINE SYRINGE. SQ SCH (11:30)
[2019-10-29 11:51] VITALS: BP 111/71
--- NOTE | 2019-10-29 14:11 | DS ---
DATE OF DISCHARGE: 10/29/2019 HOSPITAL COURSE: The patient is sitting slightly propped up in bed, no apparent distress. He continued to complain of aches and pains, but apparently the Lidoderm patch helps his pain in his neck and right shoulder. PHYSICAL EXAMINATION: GENERAL: When I examined him, he looked well and was clearly in no apparent respiratory distress. No pallor, jaundice, cyanosis or thyromegaly. No jugular venous distention. No limb edema. VITAL SIGNS: His heart rate was 109, blood pressure was 111/71, temperature was 98.8, respiratory rate 22, and oxygen saturation was 96% on 2 liters of oxygen. HEAD, EYES, EARS, NOSE AND THROAT: Showed normocephalic, atraumatic. NECK: Supple. HEART: Showed normal first and second heart sounds with no gallop, rub or murmur. CHEST: Clear to auscultation. No crepitation or rhonchi. ABDOMEN: Distended, soft, nontender. NEUROLOGIC: He is awake, alert, responding appropriately. All cranial nerves are intact. He moves extremities without difficulty. His intake over the last 24 hours was 390, output 775. LABORATORY DATA: White cell count was 9000, hemoglobin 8.8, hematocrit 36.7, MCV 95, and platelet count of 426,000. Serum sodium was 137, potassium 4.2, chloride 100, bicarbonate 26, anion gap of 11, BUN of 35, creatinine 2.4, estimated GFR was 33 mL per minute. His glucose was 88, calcium was 9.6. C-reactive protein was high at 172 mg/dL. His TSH was slightly elevated at 5.407. His prothrombin time was 12.3, INR 1.2, APTT was 28 and D-dimer was high at 8.79. His chest x-ray showed no acute pulmonary process identified and has had a V/Q scan done, which showed no evidence of perfusion defect seen. As the patient remained stable hemodynamically, a decision was made to discharge him home to continue on apixaban 5 mg twice a day, carisoprodol for Soma 350 mg 3 times a day, Colace 200 mg twice a day, gabapentin 600 mg at bedtime. He is on NovoLog insulin 7 units twice a day. He is on Tresiba 20 units afternoon, metoprolol 12.5 mg twice a day, nitroglycerin 0.4 mg sublingual every 5 minutes, Protonix 40 mg once a day, risperidone 4 mg at bedtime, Crestor 5 mg every Thursday, Thursday, Thursday, senna 1 tablet 3 times a day, Januvia 100 mg once a day and Synthroid dose of which is not clear. Tiotropium bromide for Spiriva HandiHaler 2 puffs once a day. The patient does not remember his dose of Synthroid. FINAL DISCHARGE DIAGNOSES: Chest pain with atypical features, myocardial infarction has been ruled out, acute on chronic diastolic congestive heart failure improved. The patient is already on Eliquis and V/Q scan was negative. Hypertension, hyperlipidemia, type 2 diabetes. The patient was advised to follow with his primary care physician. He already has an appointment with Dr. Spann and he was scheduled for PET scan as an outpatient. ADIEL JACKSON MD DR: MADELAINE/steven JOB#: [id number] / [id number]
== END 2019-10-29 14:07 | disposition home health service (06) ==
LOC: ER 18:09 → 1 SOUTH 21:15 → UNDOADMIN 21:15 → INTOOBSV 21:15 → UNDODISIN 10-29 14:07
PROVIDERS: ADMIT Internal Medicine; ATTEND Internal Medicine
DX: R07.89 Other chest pain (principal); I10 Essential (primary) hypertension; I25.10 Atherosclerotic heart disease of native coronary artery without angina pectoris; I50.33 Acute on chronic diastolic (congestive) heart failure; J44.9 Chronic obstructive pulmonary disease, unspecified; E11.9 Type 2 diabetes mellitus without complications; E78.5 Hyperlipidemia, unspecified; E83.42 Hypomagnesemia; F20.9 Schizophrenia, unspecified; N28.9 Disorder of kidney and ureter, unspecified; D63.8 Anemia in other chronic diseases classified elsewhere; Z79.01 Long term (current) use of anticoagulants; Z85.118 Personal history of other malignant neoplasm of bronchus and lung; Z86.711 Personal history of pulmonary embolism; Z87.891 Personal history of nicotine dependence; Z92.21 Personal history of antineoplastic chemotherapy; Z99.81 Dependence on supplemental oxygen
CPT/HCPCS: 36415; 71045; 78580; 80048; 80053; 82553; 82947; 83690; 83735; 83880; 84443; 84484; 85025; 85379; 85610; 85730; 86140; 93005; 94640; 96365; 96366; 96375; 99285; A9540; G0378; G0379; J1815; J3010; J3475; J3490; 96374; 96376

== ENCOUNTER 2019-10-31 23:06 | Observation (INO) | payer MEDICARE, MEDICAID ==
[~2019-10-31] VITALS: Ht 170.2 cm; Wt 98.2 kg
--- NOTE | 2019-10-31 23:19 | PHYS DOC ---
Past History Past Medical History: Anxiety, Arthritis, CAD, Cancer, CHF, COPD, Diabetes, Hypertension, Schizophrenia, Other Additional Past Medical Histor: PE Past Surgical History: Other Additional Past Surgical Histo: had extensive local I&D of abscesses underneath his arms Smoking: Quit Greater Than 1 Year Alcohol Use: None Drug Use: None General Adult EDM: Chief Complaint: SHORTNESS OF BREATH HPI: HPI: "..I could nt breath...I just so short .. of breath.." "I can't hardly do...anything...tonight...I just left...this place..'" My gut hurts too... I just feel too ..full of fluid..." Patient is a 64 year old male who presents with above hx and complaints dyspnea, cough, malaise, chest discomfort and generalized abdomen discomfort. Patient states he has been compliant with his medications since his discharge on 10/27/2019. Patient does have oxygen dependent COPD. Patient has past medical history significant for hypertension, hyperlipidemia, small cell lung cancer, pulmonary embolisms, peripheral neuropathy, anemia, schizophrenia, pneumothorax after a lung biopsy, and deconditioning. Patient does pt. follows with [facility] for primary care and Dr. Spann for follow-up on his small cell lung cancer diagnosed in 2018. Patient does have a [id number] smoking history. Patient denies current tobacco use. Review of Systems: Review of Systems: Constitutional: Denies fever or chills Eyes: Denies change in visual acuity HENT: Denies nasal congestion or sore throat Respiratory: Denies cough or shortness of breath Cardiovascular: Complains of chest discomfort and edema GI: Complains of mid abdomen abdominal pain, nausea,. Patient denies vomiting, bloody stools or diarrhea : Denies dysuria Musculoskeletal: Denies back pain or joint pain Integument: Denies rash Neurologic: Denies headache, focal weakness or sensory changes Endocrine: Denies polyuria or polydipsia Lymphatic: Denies swollen glands Psychiatric: Denies depression or anxiety Heart Score: HEART Score for Chest Pain: HEART Score for Chest Pain Response (Comments) Value History Moderately Suspicious 1 ECG Nonspecific Repolarizatio 1 Age >45 - < 65 1 Risk Factors 1 or 2 Risk Factors 1 Troponin < Normal Limit 0 Total 4 Risk Factors: Risk Factors: DM, Current or recent (<one month) smoker, HTN, HLP, family history of CAD, obesity. Risk Scores: Score 0 - 3: 2.5% MACE over next 6 weeks - Discharge Home Score 4 - 6: 20.3% MACE over next 6 weeks - Admit for Clinical Observation Score 7 - 10: 72.7% MACE over next 6 weeks - Early Invasive Strategies Family History: Family History: Family history of brother with prostate cancer 1 sister history of lung cancer. 1 sister with diabetes. Father of lung cancer at age 62. Mother of lung cancer at age 73 Current Medications: Current Meds: See nursing for home meds Allergies: Allergies: Allergies Coded Allergies Type Severity Reaction Last Updated Verified amoxicillin Allergy Severe Rash 01/25/18 Yes ampicillin Allergy Severe Rash 01/25/18 Yes Penicillins Allergy Intermediate Rash 01/25/18 Yes azithromycin Allergy Intermediate 03/24/18 Yes clindamycin Allergy Intermediate 01/25/18 Yes ibuprofen Allergy Intermediate 11/11/18 Yes Physical Exam: PE: Constitutional: Moderately acute distress, non-toxic appearance. [] HENT: Normocephalic, atraumatic, bilateral external ears normal, oropharynx moist, no oral exudates, nose normal. [] Eyes: PERRLA, EOMI, conjunctiva normal, no discharge. [] Neck: Normal range of motion, no tenderness, supple, no stridor. JVD in the sitting position Cardiovascular: Tachycardia heart rate regular rhythm, no murmur [. PMI to the left] Lungs & Thorax: Bilateral breath sounds scattered wheezes and crackles on auscultation []. Has a port on right Abdomen: Bowel sounds normal, soft, mid abdomen tenderness, no masses, no pulsatile masses. Obese. Rebound to mid abdomen. Skin: Warm, diaphoretic, no erythema, no rash. [] Back: No tenderness, no CVA tenderness. [] Extremities: No tenderness, no cyanosis, no clubbing, , leg edema. No evidence marked cording. Axillary scarring. No Trousseau sign Neurologic: Alert and oriented X 3, pt. moves extremities on request. Has distal sensory in upper arms, appears to be decreased in lower limbs. Patient reports no focal deficits or changes. Psychologic: Affect anxious, judgement normal, mood normal. [] EKG: EKG: My interpretation EKG shows a sinus tachycardia 111 bpm. There is right bundle branch block. Some nonspecific strain pattern. But no findings of acute STEMI with contralateral changes. [] Radiology/Procedures: Radiology/Procedures: [][address] [address] IMAGING REPORT Signed PATIENT: MARCELO ROA GACCOUNT: [id number] : 1955 LOCATION: ER AGE: 64 SEX: M EXAM STATUS: REG ER ORD. PHYSICIAN: MEHDI KAT MD REASON: dyspnea PROCEDURE: PORTABLE CHEST 1V EXAM: CHEST ONE VIEW. HISTORY: Dyspnea. COMPARISON: 10/27/2019. FINDINGS: A frontal view of the chest is obtained. A right-sided port catheter has its tip in the superior cavoatrial junction. The right hemidiaphragm is mildly elevated. Scarring in the right upper lobe is stable. There is no pneumothorax or pleural effusion. The heart is not enlarged. Calcified lymph nodes likely reflect old granulomatous disease. IMPRESSION: 1. No confluent infiltrates. Electronically signed by: Mulugeta Emerson MD (11/01/2019 2:26 AM) [facility] DICTATED AND SIGNED BY: OBI EMERSON MD DATE: 11/01/19225 CC: MEDHI KAT MD; TERRY CULLEN ~ Course & Med Decision Making: Course & Med Decision Making Pertinent Labs and Imaging studies reviewed. (See chart for details) Pt. Admitted to Dr. Harris with Cardiology consult in observational status. Will obtain ultrasound of abdomens, legs and Rt upper limbs. Plan on CT of abdomen after completion of ultrasounds with p.o. contrast.. Reviewed prior pulmonary perfusion study on 10/26 which had no significant findings and CT of 10/20 which was negative for central pulmonary embolisms. Will do gentle diuresis with Lasix possibly add Bumex if he has in adequate response with Lasix. Impression: 1. Dyspnea 2. CHF-diastolic dysfunction BNP 1817 3. Anemia hemoglobin 8.7 4. Elevated d-dimer 6.87 5. Elevated BUN and creatinine 30-2.2 6. Elevated alk phos 228 7. Elevated lipase 448 8. Elevated AST 94 9. COPD exacerbation-oxygen dependent 10. Abdomen pain. [] Dragon Disclaimer: Dragon Disclaimer: This electronic medical record was generated, in whole or in part, using a voice recognition dictation system. Departure Departure: Disposition: 01 HOME/RESIDENCE PRIOR TO ADM Condition: STABLE Referrals: TERRY CULLEN (PCP) Julia Disclaimer This chart was dictated in whole or in part using Voice Recognition software in a busy, high-work load, and often noisy Emergency Department environment. It may contain unintended and wholly unrecognized errors or omissions. Dragon Disclaimer This chart was dictated in whole or in part using Voice Recognition software in a busy, high-work load, and often noisy Emergency Department environment. It may contain unintended and wholly unrecognized errors or omissions. MEHDI KAT MD October 31, 2019 23:19
[2019-10-31] MEDS ORDERED: ASPIRIN CHEWABLE 81 MG TABLET. ONE (23:49)
[2019-11-01] MEDS ORDERED: CLARITHROMYCIN 250 MG TABLET PO SCH
[2019-11-01] MEDS ORDERED: ASPIRIN CHEWABLE 81 MG TABLET. PO ONE
[2019-11-01 00:09] LABS: BASO % 1 % (0-3); EOS # 0.1 x10^3/uL (0.0-0.7); EOS % 1 % (0-3); HEMOGLOBIN 8.7 g/dL (13.0-17.5); LYMPH # 1.5 x10^3/uL (1.0-4.8); LYMPH % 19 % (24-48); MEAN CORPUSCULAR HEMOGLOBIN 30 pg (25-35); MEAN CORPUSCULAR HGB CONC 32 g/dL (31-37); MEAN CORPUSCULAR VOLUME 95 fL (79-100); MONO # 0.7 x10^3/uL (0.0-1.1); MONO % 9 % (0-9); NEUT # 5.8 x10^3uL (1.8-7.7); NEUT % 71 % (31-73); PLATELET COUNT 380 x10^3/uL (140-400); RED BLOOD COUNT 2.85 x10^6/uL (4.30-5.70); WHITE BLOOD COUNT 8.1 x10^3/uL (4.0-11.0)
[2019-11-01 00:16] LABS: CALCIUM 10.2 mg/dL (8.5-10.1); CREATININE 2.2 mg/dL (0.7-1.3); GFR 36.8; POTASSIUM 4.1 mmol/L (3.5-5.1)
[2019-11-01 00:29] LABS: ALBUMIN 2.4 g/dL (3.4-5.0); DIRECT BILIRUBIN 0.2 mg/dL (0.0-0.2); MAGNESIUM 1.5 mg/dL (1.8-2.4); TOTAL BILIRUBIN 0.4 mg/dL (0.2-1.0); TOTAL PROTEIN 7.4 g/dL (6.4-8.2)
[2019-11-01] MEDS ORDERED: IPRATRPIUM/ALBUTEROL 0.5/2.5MG 3 ML NEBU. NEB ONE (00:30)
[2019-11-01] MEDS ORDERED: FUROSEMIDE 40 MG/4 ML VIAL IVP ONE (00:30)
[2019-11-01 00:45] LABS: BGAS PH 7.42 (7.35-7.46)
[2019-11-01 01:03] LABS: BARBITURATES NEG (NEG); BENZODIAZEPINES NEG (NEG); CANNABINOIDS NEG (NEG); COCAINE NEG (NEG); METHADONE NEG (NEG); OPIATES NEG (NEG); PHENCYCLIDINE NEG (NEG)
[2019-11-01 01:09] LABS: AMPHETAMINE/METHAMPHETAMINE NEG (NEG)
[2019-11-01 01:14] LABS: BACTERIA,URINE 0 /HPF (0-FEW); BILIRUBIN,URINE NEG (NEG); CLARITY,URINE CLEAR; COLOR,URINE YELLOW; GLUCOSE,URINE NEG (NEG); NITRITE,URINE NEG (NEG); RBC,URINE 0 /HPF (0-2); SQUAMOUS EPITHELIAL CELL,UR OCC /LPF; UROBILINOGEN,URINE 0.2 mg/dL (0.2 mg/dL); WBC,URINE RARE /HPF (0-4)
[2019-11-01] MEDS: metOLazone 2.5 MG TABLET PO SCH ×2 (02:03→08:08)
--- NOTE | 2019-11-01 02:18 | EKG ---
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
--- NOTE | 2019-11-01 02:29 | RAD ---
EXAM: CHEST ONE VIEW. HISTORY: Dyspnea. COMPARISON: 10/27/2019. FINDINGS: A frontal view of the chest is obtained. A right-sided port catheter has its tip in the superior cavoatrial junction. The right hemidiaphragm is mildly elevated. Scarring in the right upper lobe is stable. There is no pneumothorax or pleural effusion. The heart is not enlarged. Calcified lymph nodes likely reflect old granulomatous disease. IMPRESSION: 1. No confluent infiltrates. Electronically signed by: Mulugeta Emerson MD (11/01/2019 2:26 AM) [facility]
[2019-11-01] MEDS ORDERED: ACETAMINOPHEN 325 MG TABLET PO PRN (03:00)
[2019-11-01] MEDS ORDERED: ONDANSETRON PF 4 MG/2 ML VIAL. IVP PRN (03:00)
[2019-11-01] MEDS ORDERED: ENOXAPARIN ** NOTE DOSE ** SYRINGE SQ ONE (03:30)
[2019-11-01] MEDS ORDERED: ANTI-COAG MONITOR BY PHARMACY. MC PRN (03:30)
[2019-11-01] MEDS ORDERED: methylPREDNISolone SOD SUCC PF 125 MG/2 ML VIAL. IV ONE (03:30)
[2019-11-01] MEDS ORDERED: ALBUTEROL SULFATE 8GM INHALER. INH PRN (04:00)
[2019-11-01 04:16] VITALS: BP 111/78
[2019-11-01 06:01] VITALS: BP 123/82
[2019-11-01] MEDS ORDERED: ASPIRIN CHEWABLE 81 MG TABLET. PO SCH (08:00)
[2019-11-01] MEDS ORDERED: IPRATRPIUM/ALBUTEROL 0.5/2.5MG 3 ML NEBU. NEB SCH ×2 (08:00→20:00)
[2019-11-01] MEDS ORDERED: IOHEXOL 240 MG/ML 50ML VIAL. ONE (08:01)
--- NOTE | 2019-11-01 08:22 | PDOC ---
ROCHELLE WILLS GEORGE 11/01/19 0822: CARDIO Progress Notes Date & Time Date of Service DATE: 11/01/19 TIME: 08:11 Time of Evaluation 08:11 Subjective Notes breathing improved. Still having some mild abdominal pain Vitals Vitals Vital Signs Date Time Temp Pulse Resp B/P (MAP) Pulse Ox O2 Delivery O2 Flow Rate FiO2 11/01/19 06:01 98.4 105 18 123/82 (96) 97 Nasal Cannula 2.0 Weight Weight [ ] Input and Output I.O. Intake and Output 11/01/19 07:00 Intake Total 0 ml Balance 0 ml Intake Oral 0 ml Laboratory Labs Laboratory Tests Test 10/31/19 23:45 11/01/19 00:25 11/01/19 00:27 11/01/19 00:32 White Blood Count 8.1 x10^3/uL (4.0-11.0) Red Blood Count 2.85 x10^6/uL (4.30-5.70) Hemoglobin 8.7 g/dL (13.0-17.5) Hematocrit 27.0 % (39.0-53.0) Mean Corpuscular Volume 95 fL (79-100) Mean Corpuscular Hemoglobin 30 pg (25-35) Mean Corpuscular Hemoglobin Concent 32 g/dL (31-37) Red Cell Distribution Width 16.0 % (11.5-14.5) Platelet Count 380 x10^3/uL (140-400) Neutrophils (%) (Auto) 71 % (31-73) Lymphocytes (%) (Auto) 19 % (24-48) Monocytes (%) (Auto) 9 % (0-9) Eosinophils (%) (Auto) 1 % (0-3) Basophils (%) (Auto) 1 % (0-3) Neutrophils # (Auto) 5.8 x10^3uL (1.8-7.7) Lymphocytes # (Auto) 1.5 x10^3/uL (1.0-4.8) Monocytes # (Auto) 0.7 x10^3/uL (0.0-1.1) Eosinophils # (Auto) 0.1 x10^3/uL (0.0-0.7) Basophils # (Auto) 0.0 x10^3/uL (0.0-0.2) Prothrombin Time 11.2 SEC (9.4-11.4) Prothromb Time International Ratio 1.1 (0.9-1.1) Activated Partial Thromboplast Time 27 SEC (23-33) D-Dimer (Mary) 6.87 mg/L (0.00-0.50) Sodium Level 137 mmol/L (136-145) Potassium Level 4.1 mmol/L (3.5-5.1) Chloride Level 100 mmol/L (98-107) Carbon Dioxide Level 27 mmol/L (21-32) Anion Gap 10 (6-14) Blood Urea Nitrogen 30 mg/dL (8-26) Creatinine 2.2 mg/dL (0.7-1.3) Estimated GFR (Cockcroft-Gault) 36.8 Glucose Level 95 mg/dL (70-99) Calcium Level 10.2 mg/dL (8.5-10.1) Magnesium Level 1.5 mg/dL (1.8-2.4) Total Bilirubin 0.4 mg/dL (0.2-1.0) Direct Bilirubin 0.2 mg/dL (0.0-0.2) Aspartate Amino Transf (AST/SGOT) 94 U/L (15-37) Alanine Aminotransferase (ALT/SGPT) 40 U/L (16-63) Alkaline Phosphatase 228 U/L (46-116) Creatine Kinase 128 U/L (39-308) Troponin I Quantitative < 0.017 ng/mL (0-0.055) AE-Qes-E-Type Natriuretic Peptide 1817 pg/mL (0-124) Total Protein 7.4 g/dL (6.4-8.2) Albumin 2.4 g/dL (3.4-5.0) Amylase Level 90 U/L (25-115) Lipase 448 U/L (73-393) Urine Collection Type Unknown Urine Color Yellow Urine Clarity Clear Urine pH 5.5 Urine Specific [place] 1.015 Urine Protein Neg (NEG-TRACE) Urine Glucose (UA) Neg mg/dL (NEG) Urine Ketones (Stick) Neg mg/dL (NEG) Urine Blood Neg (NEG) Urine Nitrite Neg (NEG) Urine Bilirubin Neg (NEG) Urine Urobilinogen Dipstick 0.2 mg/dL (0.2 mg/dL) Urine Leukocyte Esterase Neg (NEG) Urine RBC 0 /HPF (0-2) Urine WBC Rare /HPF (0-4) Urine Squamous Epithelial Cells Occ /LPF Urine Bacteria 0 /HPF (0-FEW) Urine Opiates Screen Neg (NEG) Urine Methadone Screen Neg (NEG) Urine Barbiturates Neg (NEG) Urine Phencyclidine Screen Neg (NEG) Urine Amphetamine/Methamphetamine Neg (NEG) Urine Benzodiazepines Screen Neg (NEG) Urine Cocaine Screen Neg (NEG) Urine Cannabinoids Screen Neg (NEG) Urine Ethyl Alcohol Neg (NEG) Blood Gas pH 7.42 (7.35-7.46) Blood Gas PCO2 35 mmHg (35-46) Blood Gas PO2 87 mmHg (80-100) Blood Gas HCO3 23 mmol/L (21-28) Arterial Bld O2 Saturation (Calc) 97 % (92-99) FiO2 28 % Bedside Arterial pH 7.42 (7.35-7.45) Bedside Arterial pCO2 35 mmHg (35-45) Bedside Arterial pO2 87 mmHg (75-100) Arterial Blood HCO3 23 mmol/L (21-28) Bedside Arterial Blood O2 Sat 97 % (95-99) Bedside FiO2 28.0 Test 11/01/19 04:09 11/01/19 06:17 11/01/19 07:47 Glucose (Fingerstick) 80 mg/dL (70-99) 85 mg/dL (70-99) 83 mg/dL (70-99) Physical Exams HEENT: Neck Supple W Full Motion Chest: Symmetric Lungs: Clear to Auscultation, Other (diminished bases ) Heart: RRR Abdomen: Soft N/T, Other (distended ) Extremities: No Edema Neurology: alert, oriented, follow commands Assessment Assessment Continuum of care Please see consult 10/28/2019 for further details HPI This is a 64 yo male who was seen by our service last week due to atypical chest pain and shortness of breath. Was treated for mild acute on chronic diastolic CHF. Was discharged home 10/28 and returned 10/30 with complaints of shortness of breath and abdominal pain. 1. Dyspnea; multifactorial 2. Mild acute on chronic diastolic heart failure; improved s/p IV Lasix 3. Abdominal pain; CT abd/pelvis pending 3. H/o PE with elevated d-dimer. On Eliquis for long-term anticoagulation. Recent VQ scan negative for any acute PE. 4. COPD, Lung CA. Follows with Dr. Spann 5. CAD; patient reports normal stress test 07/27. follows with [facility] 6. Hypertension: Controlled 7. Hyperlipidemia: Continue statins 8. Diabetes mellitus type 2: Treat per IM 9. Hypomagnesemia Recommendations Replace Mg Oral Lasix therapy Discussed 2Gm Na diet, 2000 cc FR Outpatient echo if none recently Further workup up abdominal pain as per PCP Follow up with [facility] cardiology Supportive care BRODERICK SAUNDERS MD 11/01/19 1704: CARDIO Progress Notes Plan Plan Patient seen and examined. Agree with above nurse practitioner note. Suspect that current dyspnea issues are related to his pulmonary pathology. He does not appear to be in decompensated heart failure. We will obtain he is recent echocardiogram from [facility]. Supportive care for now. Thank you for this consultation. ROCHELLE WILLS APRN November 01, 2019 08:22 BRODERICK SAUNDERS MD November 01, 2019 17:04
[2019-11-01] MEDS ORDERED: MAGNESIUM SULFATE 2GM 50 ML IV ONE (08:30)
[2019-11-01] MEDS ORDERED: FUROSEMIDE 40 MG/4 ML VIAL IVP SCH (09:15)
--- NOTE | 2019-11-01 09:15 | RAD ---
ABDOMEN COMPLETE History: Abdominal pain. Known lung, kidney and liver cancer. Comparison: CT September 21, 2019. Technique: Transabdominal ultrasound images are obtained of the right upper quadrant. Findings: Visualized pancreas is is not well seen due to overlying bowel gas. Innumerable masses throughout the liver. Mass within the region of the pancreas measure 3.1 cm. Contracted gallbladder with mild wall thickening. No cholelithiasis. Common bile duct not identified due to overlying structures. The right kidney measures 9.4 x 4.5 x 3.5 cm. No hydronephrosis. Cortical thinning. Left kidney 9.4 x 5.2 x 4.4 cm. No hydronephrosis. Cortical thinning. Spleen measures 12.2 cm. Cystic lesion within the spleen measures 1.5 x 1.6 x 1.1 cm. Aorta and IVC not well seen due to overlying bowel gas. IMPRESSION: 1. Innumerable masses throughout the liver, concerning for metastasis. MRI with and without contrast can better evaluate. 2. Mass within the region of the pancreas, may relate to caudate lobe mass or lymphadenopathy. Recommend attention on follow-up imaging. 3. Contracted gallbladder. 4. Common bile duct not identified. Electronically signed by: Fuad Duff DO (11/01/2019 9:12 AM) [id number]
[2019-11-01 10:33] VITALS: BP 109/73
--- NOTE | 2019-11-01 11:00 | RAD ---
Examination: CT ABD PEL W/ORAL CONTRST ONLY History: Abdominal pain Comparison/Correlation: 11/11/2018 CT abdomen and pelvis without contrast, 09/21/2019 CT of the chest Findings: Axial images of the abdomen and pelvis were obtained following oral contrast. Sagittal and coronal reformatted images were provided. Calcified granuloma at the posterior right mid thoracic level is present abutting the pleura. Punctate lateral right basilar pulmonary nodules are present and noncalcified. These are similar upon comparison with 11/11/2018 CT abdomen and pelvis without contrast. Within the anterior pericardial fat at the level of the xiphoid process, there is again seen a mass or enlarged lymph node measuring 3.05 cm x 2 cm which abuts the pericardium.. Smaller lymph node or nodule along the medial margin of this structure is also seen and is more evident since the prior exam measuring 1.2 cm x 0.7 cm. Minimal pericardial effusion is noted especially at the anterior aspect at the level of the mass or lymph node. Emphysematous involvement of the lower lung booker is present. Heterogeneity of the liver is notable especially within the right hepatic lobe at the inferior aspect. Multiple small calculi are present in the gallbladder. No biliary dilatation. Enlarged periportal lymph nodes are evident. Portacaval lymphadenopathy is present. Enlarged lymph nodes about the pancreatic head and pancreatic neck also seen. The conglomeration of periportal lymphadenopathy measures up to 7 cm x 3.9 cm on axial image 36. Gastrohepatic ligament lymph node is enlarged measuring 2.3 cm x 1.9 cm on axial image 44. Nonenlarged lymph nodes about the retrocrural region noted. Nonenlarged aortocaval lymph nodes are seen primarily at the upper abdominal level. At the anteroinferior aspect of the spleen, there is a 2.5 cm diameter hypoattenuating mass. No radiopaque collecting system calculi. Moderate quantity of stool in the proximal colon. Visualized appendix is unremarkable. Bladder is unremarkable. No ascites or pelvic free fluid. No inflammatory findings about the cecum. Minimal diverticulosis. Urinary bladder is unremarkable. Small umbilical hernia contains omental fat. Degenerative changes of the lower lumbar spine facet joints noted. Concentric disc bulge at L3-4 is noted. Impression: Extensive hepatic metastases involvement especially in the right hepatic lobe. Marked lymphadenopathy in the periportal region in particular. Splenic mass. Anterior mediastinal mass again seen. Nodules increased in interval. Findings are concerning for metastases in this patient with known history of lung cancer. There is no pancreatic or biliary dilatation to suggest mass originating from the pancreatic head. PQRS Compliance Statement: One or more of the following individualized dose reduction techniques were utilized for this examination: 1. Automated exposure control 2. Adjustment of the mA and/or kV according to patient size 3. Use of iterative reconstruction technique Electronically signed by: Chidi Yoon MD (11/01/2019 10:57 AM) [id number]
[2019-11-01 15:00] VITALS: BP 119/79
[2019-11-01] MEDS ORDERED: CARISOPRODOL 350 MG TABLET PO PRN (15:30)
[2019-11-01] MEDS ORDERED: SENNOSIDES 8.6 MG TABLET PO PRN (15:30)
[2019-11-01] MEDS ORDERED: OXYC5TAB4 PO (16:03)
[2019-11-01 16:29] LABS: THYROID STIM HORMONE (TSH) 7.619 uIU/mL (0.358-3.740)
[2019-11-01] MEDS ORDERED: GABAPENTIN 300 MG CAPSULE. PO PRN (16:30)
--- NOTE | 2019-11-01 17:53 | SSS ---
ADMIT DATE: 11/01/2019 HISTORY OF PRESENT ILLNESS: The patient is a 64-year-old -[place] male patient who was discharged only recently from [facility] and he presented again with complaint of shortness of breath and abdominal pain. He also had complained of cough, malaise, chest discomfort, generalized abdominal discomfort. He claimed that he has been compliant with his medications since discharge. He does have oxygen dependent COPD. He has past medical history significant for small lung cancer, pulmonary embolism for which he is already on apixaban and he follows with Dr. Spann for his small cell lung cancer and he was supposed to have received chemotherapy today, but because of his shortness of breath, he came to the hospital. His primary care physician is Floewr Galeas. He was extensively investigated in the Emergency Room and his lab work showed he has normochromic normocytic anemia. His chemistry showed that he continued to have chronic kidney disease. He also has hypomagnesemia. His blood gases were unremarkable. In fact, his pH was 7.42, a pCO2 of 35, pO2 of 87, bicarbonate 23, and oxygen saturation was 97%. His D-dimer, prothrombin time, INR and aPTT were normal. D-dimer was high at 6.87, but he is already on apixaban. His urinalysis was unremarkable and toxic screen was essentially negative. He has had a chest x-ray, which basically showed that his right hemidiaphragm is mildly elevated. Scarring in the right upper lobe is stable. There is no pneumothorax or pleural effusion. The heart is not enlarged. Calcified lymph nodes, likely reflect old granulomatous disease. He has no evidence of pulmonary congestion or heart failure. He had abdominal ultrasound, which showed innumerable masses throughout the liver concerning for metastasis. MRI with and without contrast can better evaluate mass within the region of the pancreas, may relate to caudate lobe mass or lymphadenopathy, contracted gallbladder, common bile duct is not identified. Has had a CT scan of the abdomen and pelvis with oral contrast only, which basically showed that the patient has extensive hepatic metastases involvement especially in the right hepatic lobe, marked lymphadenopathy in the periportal region. In particular, splenic mass, anterior mediastinal mass is again seen. Nodular increasing interval findings are concerning for metastases in this patient with known history of lung cancer. There is no pancreatic or biliary ductal dilatation to suggest mass originating at the pancreatic head. The patient was given treatment with Lasix and aspirin as well as steroids and received also mag sulfate. We have had a lengthy discussion with him and he basically will be discharged with pain medication and should continue with all his other treatment. PAST MEDICAL HISTORY: Significant for hypertension, hyperlipidemia, history of small lung cancer in the upper lobe, diagnosed in 2019. He is status post chemotherapy. He continues to follow with Dr. Spann. The patient has multiple other medical problems including pulmonary embolism for which he is on Eliquis; COPD, on oxygen; peripheral neuropathy; anemia of chronic disease; schizophrenia; history of pneumothorax after biopsy about a year ago. PAST SURGICAL HISTORY: Significant for lung biopsy, chest tube placement for pneumothorax after lung biopsy. Has had colonoscopy, lymph node biopsy and cyst removal. ALLERGIES: ALLERGIC TO PENICILLIN, AMOXICILLIN, AZITHROMYCIN, and CLINDAMYCIN. FAMILY HISTORY: He has 2 brothers, both are younger. The youngest brother has prostate cancer. One sister has lung cancer. The other has type 2 diabetes. His father at the age of 62 because of lung cancer and his mother at the age of 73 because of lung cancer. SOCIAL HISTORY: He is single. He apparently is and lives alone. He has 3 biological children and one stepson. He quit smoking on 05/31/2016. He used to smoke a pack a day and smoked for almost 40 years. He does not drink alcohol or use recreational drugs. He is currently on disability. He was in [employer], worked at [employer] and many other jobs. MEDICATIONS: He is currently on following medications: He is on Spiriva 2 puffs daily; soma 350 mg p.o. t.i.d.; apixaban 5 mg twice a day; Crestor 5 mg on Thursday, Thursday, Thursday; nitroglycerin 0.4 mg tablet sublingually every 5 minutes x 3; metoprolol succinate 12.5 mg twice a day; gabapentin 600 mg at bedtime; risperidone 4 mg at bedtime; Colace 100 mg, he gets 2 capsules twice a day; Protonix 40 mg once a day; sitagliptin for Januvia 100 mg once a day. He is on NovoLog 7 units before meals and Tresiba FlexPen 20 units afternoon. PHYSICAL EXAMINATION: GENERAL: On arrival to the Emergency Room, he looked well and was clearly in no apparent respiratory distress. He was pale. No jaundice, cyanosis or thyromegaly. No jugular venous distention. No limb edema. VITAL SIGNS: His heart rate was 108, blood pressure was 105/77, temperature was 97.5, respiratory rate 20, and oxygen saturation was 96% on 2 liters of oxygen. HEAD, EYES, EARS, NOSE AND THROAT: Showed normocephalic, atraumatic. NECK: Supple. HEART: Showed normal first and second heart sounds with no gallop, rub or murmur. CHEST: Clear to auscultation. No crepitation or rhonchi. ABDOMEN: Distended, soft, nontender. Tenderness mostly in the right upper quadrant. There is no guarding or rigidity. No organomegaly. All hernial orifices intact. Bowel sounds normal. NEUROLOGIC: He is awake, alert, responding appropriately. All cranial nerves intact. EXTREMITIES: He moves extremities without difficulty. LABORATORY DATA: His lab work showed a serum sodium 137, potassium 4.1, chloride 100, bicarbonate 27, anion gap of 10, BUN 30, creatinine 2.2, estimated GFR was 37 mL per minute. His glucose was 95, calcium was 7.2, magnesium was 1.5. Total bilirubin, ALT normal. AST and alkaline phosphatase are elevated. His beta-natriuretic peptide was 1817. Total protein was 7.4, albumin 2.4. Lipase was 448. His blood gases showed a pH of 7.42, a pCO2 of 35, pO2 87, bicarbonate 23, and oxygen saturation was 97% on FiO2 of 28%. His prothrombin time 11.2, INR 1.1, aPTT was 27. D-dimer was 6.87. Urinalysis unremarkable and toxic screen was negative. He was discharged home to follow with his primary care physician tomorrow morning. He was discharged on oxycodone immediate release 5 mg every 4 hours as needed, apixaban 5 mg twice a day, soma 350 mg 3 times a day, Colace 200 mg twice a day, gabapentin 600 mg at bedtime. He is on NovoLog insulin 7 units before breakfast and dinner. He is on Tresiba 20 units subcutaneously afternoon; metoprolol 12.5 mg twice a day; nitroglycerin 0.4 mg sublingual every 5 minutes; Protonix 40 mg daily; risperidone 4 mg at bedtime; Crestor 5 mg on Thursday, Thursday, Thursday; senna 1 tablet 3 times a day; sitagliptin phosphate for Januvia 100 mg once a day and Spiriva HandiHaler 1 inhalation once a day. FINAL DISCHARGE DIAGNOSES: 1. Metastatic small cell lung cancer with extensive metastasis in the liver and mild intraperitoneal lymphadenopathy and mediastinal mass or lymph node. 2. Oxygen dependent chronic obstructive pulmonary disease, type 2 diabetes, hypertension, hyperlipidemia, history of pulmonary embolism for which he is on Eliquis, peripheral neuropathy, anemia of chronic kidney disease, schizophrenia. Dictation Ends Here ADIEL JACKSON MD DR: MADELAINE/steven JOB#: [id number] / [id number]
[2019-11-01] MEDS ORDERED: risperiDONE 2 MG TABLET. PO SCH (21:00)
[2019-11-01] MEDS ORDERED: METOPROLOL SUCC 24HR ER 25 MG TAB.ER.24H. PO SCH (21:00)
[2019-11-01] MEDS ORDERED: DOCUSATE SODIUM 100 MG CAPSULE PO SCH (21:00)
[2019-11-01] MEDS ORDERED: ENOXAPARIN ** NOTE DOSE ** SYRINGE SQ SCH (21:00)
[2019-11-02] MEDS ORDERED: FUROSEMIDE 40 MG TABLET PO SCH (09:00)
[2019-11-02] MEDS ORDERED: NON FORMULARY ITEM (Tiotropium Bromide (Spiriva) 2 PUFF) IH SCH (09:00)
[2019-11-02] MEDS ORDERED: PANTOPRAZOLE 40 MG TABLET. PO SCH (09:00)
[2019-11-02] MEDS ORDERED: ATORVASTATIN CALCIUM 20 MG TABLET PO SCH (16:00)
== END 2019-11-01 16:35 | disposition home or self-care (01) ==
LOC: ER 23:06 → 1 SOUTH 11-01 02:20
PROVIDERS: ADMIT Internal Medicine; ATTEND Internal Medicine
DX: C78.7 Secondary malignant neoplasm of liver and intrahepatic bile duct (principal); C34.90 Malignant neoplasm of unspecified part of unspecified bronchus or lung; D63.1 Anemia in chronic kidney disease; E78.5 Hyperlipidemia, unspecified; J44.1 Chronic obstructive pulmonary disease with (acute) exacerbation; E11.22 Type 2 diabetes mellitus with diabetic chronic kidney disease; I13.0 Hypertensive heart and chronic kidney disease with heart failure and stage 1 through stage 4 chronic kidney disease, or unspecified chronic kidney disease; I25.10 Atherosclerotic heart disease of native coronary artery without angina pectoris; I50.33 Acute on chronic diastolic (congestive) heart failure; N18.9 Chronic kidney disease, unspecified; F20.9 Schizophrenia, unspecified; E83.42 Hypomagnesemia; Z79.01 Long term (current) use of anticoagulants; Z87.891 Personal history of nicotine dependence; Z99.81 Dependence on supplemental oxygen; Z79.899 Other long term (current) drug therapy
CPT/HCPCS: 36415; 36600; 71045; 74176; 76700; 80048; 80061; 80076; 80307; 81001; 82043; 82150; 82550; 82803; 82947; 83690; 83735; 83880; 84443; 84484; 85025; 85379; 85610; 85730; 93005; 94640; 96365; 96366; 96372; 96375; 96376; 99285; G0378; J1650; J1940; J2930; J3475; G0379